=== PATIENT | male | born 1950 | race Caucasian/White ===

== ENCOUNTER 2018-09-14 15:07 | Inpatient (IN) | payer MEDICARE ==
[2018-09-14] MEDS ORDERED: ONDANSETRON 4 MG/2 ML VIAL IVP STA (15:59)
[2018-09-14] MEDS ORDERED: SODIUM CHLORIDE 0.9% 1,000 ML IV STA (15:59)
[2018-09-14 16:22] LABS: Anisocytosis Slight; Basophils # (A) 0.1 k/uL (0-0.2); Basophils % (A) 1 %; Eosinophils # (A) 0.3 k/uL (0-0.7); Eosinophils % (A) 3 %; HGB 9.5 gm/dL (13.0-17.5); Hypochromasia Moderate; Lymphocytes # (A) 2.2 k/uL (1.0-4.8); Lymphocytes % (A) 20 %; MCH 23.7 pg (25.0-35.0); MCHC 30.8 g/dL (31.0-37.0); MCV 77.1 fL (80.0-100.0); Mean Platelet Volume 8.2; Microcytosis Slight; Monocytes # (A) 0.5 k/uL (0-1.0); Monocytes % (A) 5 %; Neutrophils # (A) 8.1 k/uL (1.3-7.7); Neutrophils % (A) 72 %; Platelet Count 293 k/uL (150-450); RBC 4.02 m/uL (4.30-5.90); RDW 16.6 % (11.5-15.5); WBC 11.3 k/uL (3.8-10.6)
--- NOTE | 2018-09-14 16:22 | ED ---
GI Bleed HPI - General Chief complaint: GI Bleed Stated complaint: rectal bleeding Time Seen by Provider: 09/14/18 15:16 Source: EMS, RN notes reviewed, old records reviewed Mode of arrival: EMS Limitations: physical limitation - History of Present Illness Initial comments: This is a 60-year-old male the ER for evaluation. Patient's presented for evalu ation regarding GI bleed. Blood per rectum on Plavix. Patient does admit to some weakness, is currently having bright red blood in his diaper currently. Symptoms times one day. No feelings of syncope or near-syncope patient coming from [address] [place] [address], states that he does have history of ulcers MD complaint: blood streaked stool, gross hematochezia -: hour(s) Radiation: none Severity scale (1-10): 3 Quality: painless Consistency: constant Improves with: none Worsens with: bowel movement Context: history of GI bleed Associated Symptoms: abdominal pain, nausea, weakness - Related Data Home Medications Medication Instructions Recorded Confirmed Acetaminophen [Tylenol] 650 mg PO Q4H PRN 09/14/18 09/14/18 Acetaminophen-Codeine 300-30mg 1 tab PO Q4H PRN 09/14/18 09/14/18 [Tylenol w/codeine #3] Aspirin 325 mg PO DAILY 09/14/18 09/14/18 Cbs (Unknown) 1 dose PO DAILY 09/14/18 09/14/18 Cholecalciferol (Vitamin D3) 2,000 unit PO DAILY 09/14/18 09/14/18 [Vitamin D3] Clopidogrel Bisulfate [Plavix] 75 mg PO DAILY 09/14/18 09/14/18 Ferrous Sulfate [Feosol] 325 mg PO DAILY 09/14/18 09/14/18 Gabapentin [Neurontin] 100 mg PO TID 09/14/18 09/14/18 INSULIN LISPRO (humaLOG) [humaLOG] See Protocol SQ ACHS 09/14/18 09/14/18 Lactobacillus Acidophilus 460 mg PO BID 09/14/18 09/14/18 [Florajen] Metoprolol Tartrate [Lopressor] 75 mg PO BID 09/14/18 09/14/18 Multivitamins, Thera [Multivitamin 1 tab PO DAILY 09/14/18 09/14/18 (formulary)] amLODIPine [Norvasc] 10 mg PO DAILY 09/14/18 09/14/18 Allergies Allergy/AdvReac Type Severity Reaction Status Date / Time Ptvmwpx-Qhv-Cva Reductase AdvReac Confusion Verified 09/14/18 16:46 Inhibitor Review of Systems ROS Statement: Those systems with pertinent positive or pertinent negative responses have been documented in the HPI. ROS Other: All systems not noted in ROS Statement are negative. 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 Absent: scleral icterus, conjunctival injection, periorbital swelling ENT exam: Present: normal exam, mucous membranes moist Neck exam: Present: normal inspection. Absent: tenderness, meningismus, lymphadenopathy Respiratory exam: Present: normal lung sounds bilaterally. Absent: respiratory distress, wheezes, rales, rhonchi, stridor Cardiovascular Exam: Present: regular rate, normal rhythm, normal heart sounds. Absent: systolic murmur, diastolic murmur, rubs, gallop, clicks GI/Abdominal exam: Present: soft, normal bowel sounds. Absent: distended, tenderness, guarding, rebound, rigid Extremities exam: Present: normal inspection, full ROM, normal capillary refill. Absent: tenderness, pedal edema, joint swelling, calf tenderness Back exam: Present: normal inspection Neurological exam: Present: alert, oriented X3, CN II-XII intact Psychiatric exam: Present: normal affect, normal mood Skin exam: Present: warm, dry, intact, normal color. Absent: rash Course Vital Signs 09/14/18 15:11 Temperature 97.9 F Pulse Rate 75 Respiratory 18 Rate Blood Pressure 142/85 O2 Sat by Pulse 100 Oximetry - Reevaluation(s) Reevaluation #1: 09/14/18 16:22 Medical record is reviewed Medical Decision Making - Medical Decision Making 60 male the ER for evaluation. Patient is to be admitted for GI bleed. Positive bleeding As directed on Plavix. Patient's vital signs normal, patient be admitted for monitoring of hemoglobin - Lab Data Result diagrams: 09/14/18 15:30 09/14/18 15:30 Lab Results 09/14/18 09/14/18 09/14/18 Range/Units 15:30 15:30 15:30 WBC 11.3 H (3.8-10.6) k/uL RBC 4.02 L (4.30-5.90) m/uL Hgb 9.5 L (13.0-17.5) gm/dL Hct 31.0 L (39.0-53.0) % MCV 77.1 L (80.0-100.0) fL MCH 23.7 L (25.0-35.0) pg MCHC 30.8 L (31.0-37.0) g/dL RDW 16.6 H (11.5-15.5) % Plt Count 293 (150-450) k/uL Neutrophils % 72 % Lymphocytes % 20 % Monocytes % 5 % Eosinophils % 3 % Basophils % 1 % Neutrophils # 8.1 H (1.3-7.7) k/uL Lymphocytes # 2.2 (1.0-4.8) k/uL Monocytes # 0.5 (0-1.0) k/uL Eosinophils # 0.3 (0-0.7) k/uL Basophils # 0.1 (0-0.2) k/uL Hypochromasia Moderate Anisocytosis Slight Microcytosis Slight PT 11.0 (9.0-12.0) sec INR 1.0 (<1.2) APTT 26.3 (22.0-30.0) sec Sodium 139 (137-145) mmol/L Potassium 4.3 (3.5-5.1) mmol/L Chloride 102 (98-107) mmol/L Carbon Dioxide 25 (22-30) mmol/L Anion Gap 12 mmol/L BUN 18 (9-20) mg/dL Creatinine 0.94 (0.66-1.25) mg/dL Est GFR (CKD-EPI)AfAm >90 (>60 ml/min/1.73 sqM) Est GFR (CKD-EPI)NonAf 83 (>60 ml/min/1.73 sqM) Glucose 138 H (74-99) mg/dL Calcium 10.1 (8.4-10.2) mg/dL Magnesium 1.4 L (1.6-2.3) mg/dL Total Bilirubin 0.4 (0.2-1.3) mg/dL AST 18 (17-59) U/L ALT 38 (21-72) U/L Alkaline Phosphatase 99 (38-126) U/L Troponin I (0.000-0.034) ng/mL Total Protein 6.7 (6.3-8.2) g/dL Albumin 3.7 (3.5-5.0) g/dL Lipase 265 (23-300) U/L Blood Type Blood Type Confirm Blood Type Recheck Antibody Screen Spec Expiration Date 09/14/18 09/14/18 09/14/18 Range/Units 15:30 15:30 16:45 WBC (3.8-10.6) k/uL RBC (4.30-5.90) m/uL Hgb (13.0-17.5) gm/dL Hct (39.0-53.0) % MCV (80.0-100.0) fL MCH (25.0-35.0) pg MCHC (31.0-37.0) g/dL RDW (11.5-15.5) % Plt Count (150-450) k/uL Neutrophils % % Lymphocytes % % Monocytes % % Eosinophils % % Basophils % % Neutrophils # (1.3-7.7) k/uL Lymphocytes # (1.0-4.8) k/uL Monocytes # (0-1.0) k/uL Eosinophils # (0-0.7) k/uL Basophils # (0-0.2) k/uL Hypochromasia Anisocytosis Microcytosis PT (9.0-12.0) sec INR (<1.2) APTT (22.0-30.0) sec Sodium (137-145) mmol/L Potassium (3.5-5.1) mmol/L Chloride (98-107) mmol/L Carbon Dioxide (22-30) mmol/L Anion Gap mmol/L BUN (9-20) mg/dL Creatinine (0.66-1.25) mg/dL Est GFR (CKD-EPI)AfAm (>60 ml/min/1.73 sqM) Est GFR (CKD-EPI)NonAf (>60 ml/min/1.73 sqM) Glucose (74-99) mg/dL Calcium (8.4-10.2) mg/dL Magnesium (1.6-2.3) mg/dL Total Bilirubin (0.2-1.3) mg/dL AST (17-59) U/L ALT (21-72) U/L Alkaline Phosphatase (38-126) U/L Troponin I <0.012 (0.000-0.034) ng/mL Total Protein (6.3-8.2) g/dL Albumin (3.5-5.0) g/dL Lipase (23-300) U/L Blood Type A Positive Blood Type Confirm A Positive Blood Type Recheck CABO Indicated Antibody Screen NEGATIVE Spec Expiration Date 09/17/2018 - 2330 Disposition Clinical Impression: Gastrointestinal hemorrhage, Anemia Disposition: ADMITTED IP TO THIS [facility] Condition: Fair Instructions (If sedation given, give patient instructions): Gastrointestinal Bleeding (ED) Is patient prescribed a controlled substance at d/c from ED?: No Referrals: Bill Sainz DO [Primary Care Provider] - 1-2 days
[2018-09-14 16:27] LABS: ALT 38 U/L (21-72); AST 18 U/L (17-59); Albumin 3.7 g/dL (3.5-5.0); Alkaline Phosphatase 99 U/L (38-126); Anion Gap 12 mmol/L; Blood Urea Nitrogen 18 mg/dL (9-20); Calcium 10.1 mg/dL (8.4-10.2); Carbon Dioxide 25 mmol/L (22-30); Chloride 102 mmol/L (98-107); Glucose 138 mg/dL (74-99); Lipase 265 U/L (23-300); Magnesium 1.4 mg/dL (1.6-2.3); Potassium 4.3 mmol/L (3.5-5.1); Sodium 139 mmol/L (137-145); Total Bilirubin 0.4 mg/dL (0.2-1.3); Total Protein 6.7 g/dL (6.3-8.2)
[2018-09-14 16:31] LABS: Partial Thromboplastin Time 26.3 sec (22.0-30.0)
[2018-09-14 21:28] LABS: Glucose,Whole Blood 135 mg/dL (75-99)
[2018-09-14 21:42] LABS: Anisocytosis Slight; HCT 27.9 % (39.0-53.0); HGB 8.5 gm/dL (13.0-17.5); Hypochromasia Moderate; MCH 23.5 pg (25.0-35.0); MCHC 30.3 g/dL (31.0-37.0); MCV 77.6 fL (80.0-100.0); Mean Platelet Volume 8.3; Microcytosis Slight; Platelet Count 263 k/uL (150-450); RDW 16.8 % (11.5-15.5); WBC 9.9 k/uL (3.8-10.6)
[2018-09-14] MEDS ORDERED: ACETAMINOPHEN TAB 325 MG TAB PO PRN (22:15)
[2018-09-14 22:30] VITALS: BMI 25.2
[2018-09-14] MEDS ORDERED: INSULIN ASPART (NovoLOG) 100 UNIT/ML VIAL SQ SCH (22:30)
[2018-09-14] MEDS: METOPROLOL TARTRATE 25 MG TAB PO SCH (23:04)
[2018-09-14] MEDS: GABAPENTIN 100 MG CAP PO SCH (23:04)
[2018-09-15 00:09] LABS: Glucose,Whole Blood 192 mg/dL (75-99)
[2018-09-15] MEDS: INSULIN ASPART (NovoLOG) 100 UNIT/ML VIAL SQ SCH ×4 (00:36→17:47)
[2018-09-15 06:05] LABS: Anion Gap 7 mmol/L; Blood Urea Nitrogen 16 mg/dL (9-20); Calcium 9.1 mg/dL (8.4-10.2); Carbon Dioxide 26 mmol/L (22-30); Chloride 106 mmol/L (98-107); Glucose 129 mg/dL (74-99); Magnesium 1.4 mg/dL (1.6-2.3); Potassium 4.6 mmol/L (3.5-5.1); Sodium 139 mmol/L (137-145)
[2018-09-15 06:09] LABS: Glucose,Whole Blood 140 mg/dL (75-99)
[2018-09-15] MEDS ORDERED: Magnesium Replacement Protocol 1 EACH MISC MISCELLANE PRN (06:15)
[2018-09-15] MEDS: MAGNESIUM SULFATE-D5W PMX 1 GM in DEXTROSE/WATER 1 100ML.BAG IVPB SCH ×3 (07:57→10:53)
[2018-09-15 09:37] LABS: Anisocytosis Slight; Basophils % (A) 1 %; Eosinophils # (A) 0.3 k/uL (0-0.7); Eosinophils % (A) 5 %; HCT 26.2 % (39.0-53.0); HGB 7.9 gm/dL (13.0-17.5); Hypochromasia Marked; Lymphocytes # (A) 1.8 k/uL (1.0-4.8); Lymphocytes % (A) 31 %; MCH 23.9 pg (25.0-35.0); MCHC 30.3 g/dL (31.0-37.0); MCV 78.8 fL (80.0-100.0); Mean Platelet Volume 8.6; Monocytes # (A) 0.3 k/uL (0-1.0); Monocytes % (A) 5 %; Neutrophils # (A) 3.4 k/uL (1.3-7.7); Neutrophils % (A) 57 %; Platelet Count 233 k/uL (150-450); RBC 3.33 m/uL (4.30-5.90); RDW 16.6 % (11.5-15.5); WBC 5.9 k/uL (3.8-10.6)
[2018-09-15] MEDS: GABAPENTIN 100 MG CAP PO SCH ×3 (09:39→21:01)
[2018-09-15] MEDS: METOPROLOL TARTRATE 25 MG TAB PO SCH (10:06)
[2018-09-15] MEDS: PANTOPRAZOLE 40 MG/10 ML VIAL IVP SCH ×2 (10:53→21:03)
[2018-09-15] MEDS: METOPROLOL TARTRATE 50 MG TAB PO SCH ×2 (10:58→21:01)
[2018-09-15 12:00] LABS: Glucose,Whole Blood 165 mg/dL (75-99)
--- NOTE | 2018-09-15 12:59 | P.CONS ---
History of Present Illness - Reason for Consult Consult date: 09/15/18 GI bleed Requesting physician: Geni Olea - Chief Complaint Hematochezia - History of Present Illness 68-year-old male admitted with painless hematochezia x 1 day. Past medical history recent RBKA 6-7 weeks ago at [facility], heart failure, diabetes, hypertension maintained on DAPL. Admission HGB 9.5 presently 7.9. MCV 77. Platelet 293. INR 1.0. BUN 18. Creatinine 0.9. Passed gross bloody BM this morning. VSS. Denies abdominal pain. No history of EGD or colonoscopy. No history of GIB. No abdominal studies to review. Review of Systems Constitutional: Denies fever, chills, sweats, weight gain, or loss. HEENT: Negative for migraines, blurred vision or loss, earaches, drainage, tinnitus, oral mucosal lesions, dysphagia, or odynophagia. Cardiac: Negative for chest pain, arrhythmias, or palpitation. Respiratory: Negative for shortness of breath, hemoptysis, cough, or sputum production. Gastrointestinal: See HPI for pertinent findings. Genitourinary: Negative for hematuria, urgency, frequency, polyuria, dysuria, or penile discharge. Musculoskeletal: Negative for muscle aches, swelling, arthritis, and arthralgias. Neurologic: Negative for stroke or TIA. Endocrine: Negative for thyroid problems. Skin: Negative for rash or itching. 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, carotid replaced Date of Last Stent Placement:: 45 years ago Past Psychological History: No Psychological Hx Reported Smoking Status: Former smoker Past Alcohol Use History: None Reported Past Drug Use History: Marijuana Medications and Allergies Home Medications Medication Instructions Recorded Confirmed Type Acetaminophen [Tylenol] 650 mg PO Q4H PRN 09/14/18 09/14/18 History Acetaminophen-Codeine 300-30mg 1 tab PO Q4H PRN 09/14/18 09/14/18 History [Tylenol w/codeine #3] Aspirin 325 mg PO DAILY 09/14/18 09/14/18 History Cbs (Unknown) 1 dose PO DAILY 09/14/18 09/14/18 History Cholecalciferol (Vitamin D3) 2,000 unit PO DAILY 09/14/18 09/14/18 History [Vitamin D3] Clopidogrel Bisulfate [Plavix] 75 mg PO DAILY 09/14/18 09/14/18 History Ferrous Sulfate [Feosol] 325 mg PO DAILY 09/14/18 09/14/18 History Gabapentin [Neurontin] 100 mg PO TID 09/14/18 09/14/18 History INSULIN LISPRO (humaLOG) [humaLOG] See Protocol SQ ACHS 09/14/18 09/14/18 History Lactobacillus Acidophilus 460 mg PO BID 09/14/18 09/14/18 History [Florajen] Metoprolol Tartrate [Lopressor] 75 mg PO BID 09/14/18 09/14/18 History Multivitamins, Thera [Multivitamin 1 tab PO DAILY 09/14/18 09/14/18 History (formulary)] amLODIPine [Norvasc] 10 mg PO DAILY 09/14/18 09/14/18 History Allergies Allergy/AdvReac Type Severity Reaction Status Date / Time Aajqxgj-Haj-Ggs Reductase AdvReac Confusion Verified 09/14/18 16:46 Inhibitor Physical Exam Vitals: Vital Signs Temp Pulse Pulse Resp BP BP Pulse Ox 09/15/18 10:00 59 L 16 133/61 99 09/15/18 09:00 57 L 12 144/62 98 09/15/18 08:00 97.7 F 60 12 146/64 99 09/15/18 07:30 54 L 17 99 09/15/18 07:00 58 L 9 L 115/96 100 09/15/18 06:30 65 20 115/96 98 09/15/18 06:00 61 17 125/49 98 09/15/18 05:30 55 L 15 125/49 99 09/15/18 05:00 56 L 15 125/50 99 09/15/18 04:30 47 L 15 125/50 98 09/15/18 04:00 50 L 16 141/66 100 09/15/18 03:30 97.7 F 50 L 18 141/66 100 09/15/18 03:00 55 L 13 134/58 100 09/15/18 02:30 53 L 15 134/58 98 09/15/18 02:00 55 L 12 137/69 99 09/15/18 01:30 51 L 23 137/69 98 09/15/18 01:00 56 L 15 123/66 98 09/15/18 00:30 58 L 15 123/66 98 09/15/18 00:00 98.4 F 66 18 130/80 98 09/14/18 23:30 15 130/80 98 09/14/18 23:00 72 12 142/68 96 09/14/18 22:36 78 11 L 142/68 98 09/14/18 22:30 82 12 142/68 99 09/14/18 22:20 76 5 L 151/76 98 09/14/18 22:10 77 13 151/76 100 09/14/18 22:00 77 10 L 151/76 98 09/14/18 21:50 80 13 151/76 98 09/14/18 21:40 81 10 L 100 09/14/18 21:39 81 11 L 98 09/14/18 20:39 98.1 F 85 16 132/62 100 09/14/18 19:40 98.5 F 79 12 142/68 97 09/14/18 18:38 79 18 154/79 100 09/14/18 17:19 82 18 142/81 100 09/14/18 15:11 97.9 F 75 18 142/85 100 Intake and Output 09/14/18 09/15/18 09/15/18 22:59 06:59 14:59 Intake Total 200 800 400 Output Total 350 400 Balance 200 450 0 Intake: IV 200 800 200 Sodium Chloride 0.9% 1, 200 800 200 000 ml @ 100 mls/hr IV . Q10H STA Rx#:[id number] Intake, IV Titration 200 Amount Magnesium Sulfate-D5w Pmx 200 1 gm In Dextrose/Water 1 100ml.bag @ 100 mls/hr IVPB Q1H LORETTA Rx#: [id number] Output: Urine 350 400 Other: Weight 87.543 kg 89.3 kg General appearance: The patient is alert, oriented, in no acute distress. HET: Head is normocephalic and atraumatic. Pupils are equal and reactive. Oropharynx is clear without lesions. Neck: Supple without lymphadenopathy. Trachea midline. Heart: S1 S2. Regular rate and rhythm. Lungs: No crackles or wheezes are heard. Abdomen: Soft, nontender, nondistended with bowel sounds. No peritoneal signs. No palpable organomegaly or masses. Extremities: RLE immobilizer. Normal skin color and turgor. No cyanosis, rash, ulceration, clubbing, or edema. Radial and pedal pulses are 2/4 bilaterally. Neurological: No focal deficits. Strength and sensation are grossly intact. Results CBC & Chem 7: 09/15/18 05:58 09/15/18 05:26 Labs: Abnormal Lab Results - Last 24 Hours (Table) 09/14/18 09/14/18 09/14/18 Range/Units 15:30 15:30 21:16 WBC 11.3 H (3.8-10.6) k/uL RBC 4.02 L (4.30-5.90) m/uL Hgb 9.5 L (13.0-17.5) gm/dL Hct 31.0 L (39.0-53.0) % MCV 77.1 L (80.0-100.0) fL MCH 23.7 L (25.0-35.0) pg MCHC 30.8 L (31.0-37.0) g/dL RDW 16.6 H (11.5-15.5) % Neutrophils # 8.1 H (1.3-7.7) k/uL Glucose 138 H (74-99) mg/dL POC Glucose (mg/dL) 135 H (75-99) mg/dL Magnesium 1.4 L (1.6-2.3) mg/dL 09/14/18 09/14/18 09/15/18 Range/Units 21:31 23:57 05:26 WBC (3.8-10.6) k/uL RBC 3.60 L (4.30-5.90) m/uL Hgb 8.5 L (13.0-17.5) gm/dL Hct 27.9 L (39.0-53.0) % MCV 77.6 L (80.0-100.0) fL MCH 23.5 L (25.0-35.0) pg MCHC 30.3 L (31.0-37.0) g/dL RDW 16.8 H (11.5-15.5) % Neutrophils # (1.3-7.7) k/uL Glucose 129 H (74-99) mg/dL POC Glucose (mg/dL) 192 H (75-99) mg/dL Magnesium 1.4 L (1.6-2.3) mg/dL 09/15/18 09/15/18 Range/Units 05:58 05:58 WBC (3.8-10.6) k/uL RBC 3.33 L (4.30-5.90) m/uL Hgb 7.9 L (13.0-17.5) gm/dL Hct 26.2 L (39.0-53.0) % MCV 78.8 L (80.0-100.0) fL MCH 23.9 L (25.0-35.0) pg MCHC 30.3 L (31.0-37.0) g/dL RDW 16.6 H (11.5-15.5) % Neutrophils # (1.3-7.7) k/uL Glucose (74-99) mg/dL POC Glucose (mg/dL) 140 H (75-99) mg/dL Magnesium (1.6-2.3) mg/dL Assessment and Plan (1) Hematochezia Narrative/Plan: 68 y/o male admitted with painless rectal bleeding possible acute diverticular bleeding possible bleeding AVM inflammatory ischemic colitis. Upper GI pathology cannot be excluded. Current Visit: Yes Status: Acute Code(s): K92.1 - MELENA SNOMED Code(s): 201289921 (2) Acute blood loss anemia Current Visit: Yes Status: Acute Code(s): D62 - ACUTE POSTHEMORRHAGIC ANEMIA SNOMED Code(s): 064253184 (3) Gastrointestinal hemorrhage Current Visit: Yes Status: Acute Code(s): K92.2 - GASTROINTESTINAL HEMORRHAGE, UNSPECIFIED SNOMED Code(s): 32104968 Plan: 1. NPO except meds. EGD evaluation this afternoon if negative we'll proceed with colonoscopy tomorrow. 2. CBC Q6HR. 3. PPI BID. 4. Tagged RBC if bleeding worsens. The standards engineer has discussed the risks, benefits and alternative therapies for the above-mentioned procedure and for both sedation/analgesia as well as necessary blood product administration, if indicated, as they pertain to this patient. The patient has indicated understanding and acceptance of the risks and procedures discussed. Thank you for this kind referral and the opportunity to participate in the care of your patient. This consultation was discussed with Dr. Jett. The impression and plan of care have been directed as dictated.
--- NOTE | 2018-09-15 13:02 | P.CNPUL ---
History of Present Illness Consult date: 09/15/18 Requesting physician: Geni Olea Reason for consult: other (GI bleeding, admitted to the ICU) Chief complaint: GI bleeding blood per rectum History of present illness: this is a 60-year-old white male with history ofperipheral vessel occlusive disease, and recent below-knee amputation of the right lower extremity. Patient is also known to have history of diabetes, hypertension, medically neuropathy, patient presented to the ER mostly with chief complaint of bright red blood per rectum for the last 1 day. He was feeling generally weak, denies any abdominal pain, no nausea, no vomiting, no hematemesis. Patient had mostly bright red blood per rectum symptoms. Patient became quite concerned, he presented to the ER, and his labs showed a hemoglobin of 8.5, and low indices suggestive of iron deficiency anemia and blood loss. Patient was admitted, did not require any blood transfusion yet, his repeat hemoglobin this morning is 7.9. Patient denies any chest pain, no cough no wheezing no shortness of breath, no nausea no vomiting, no abdominal pain. No dysuria frequency or urgency urgency denies any hematuria. Review of Systems Constitutional: deniesfever chills no weight loss, denies poor appetite. Eyes: denies blurred vision or diplopia. Ears, nose, mouth and throat: Denies dysphagia, Denies headache, Denies mouth pain, Denies nasal congestion, Denies nasal discharge, Denies sore throat Cardiovascular: denies any chest pain, palpitations, no diaphoresis. Respiratory:adenies any cough wheezing or shortness of breath. Denies any chest pain. Gastrointestinal: mostly bright red blood per rectal, as noted in HPI. Genitourinary: denies dysuria frequency or urgency. Musculoskeletal: minimal weakness. Integumentary: no pruritus, no erythema.recent right below-knee amputation. 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, carotid replaced Date of Last Stent Placement:: 45 years ago Past Psychological History: No Psychological Hx Reported Smoking Status: Former smoker Past Alcohol Use History: None Reported Past Drug Use History: Marijuana Medications and Allergies Home Medications Medication Instructions Recorded Confirmed Type Acetaminophen [Tylenol] 650 mg PO Q4H PRN 09/14/18 09/14/18 History Acetaminophen-Codeine 300-30mg 1 tab PO Q4H PRN 09/14/18 09/14/18 History [Tylenol w/codeine #3] Aspirin 325 mg PO DAILY 09/14/18 09/14/18 History Cbs (Unknown) 1 dose PO DAILY 09/14/18 09/14/18 History Cholecalciferol (Vitamin D3) 2,000 unit PO DAILY 09/14/18 09/14/18 History [Vitamin D3] Clopidogrel Bisulfate [Plavix] 75 mg PO DAILY 09/14/18 09/14/18 History Ferrous Sulfate [Feosol] 325 mg PO DAILY 09/14/18 09/14/18 History Gabapentin [Neurontin] 100 mg PO TID 09/14/18 09/14/18 History INSULIN LISPRO (humaLOG) [humaLOG] See Protocol SQ ACHS 09/14/18 09/14/18 History Lactobacillus Acidophilus 460 mg PO BID 09/14/18 09/14/18 History [Florajen] Metoprolol Tartrate [Lopressor] 75 mg PO BID 09/14/18 09/14/18 History Multivitamins, Thera [Multivitamin 1 tab PO DAILY 09/14/18 09/14/18 History (formulary)] amLODIPine [Norvasc] 10 mg PO DAILY 09/14/18 09/14/18 History Allergies Allergy/AdvReac Type Severity Reaction Status Date / Time Jbmaupe-Htl-Vae Reductase AdvReac Confusion Verified 09/14/18 16:46 Inhibitor Physical Exam Vitals: Vital Signs Temp Pulse Pulse Resp BP BP Pulse Ox 09/15/18 12:00 54 L 13 144/73 97 09/15/18 11:00 77 14 131/72 98 09/15/18 10:00 59 L 16 133/61 99 09/15/18 09:00 57 L 12 144/62 98 09/15/18 08:00 97.7 F 60 12 146/64 99 09/15/18 07:30 54 L 17 99 09/15/18 07:00 58 L 9 L 115/96 100 09/15/18 06:30 65 20 115/96 98 09/15/18 06:00 61 17 125/49 98 09/15/18 05:30 55 L 15 125/49 99 09/15/18 05:00 56 L 15 125/50 99 09/15/18 04:30 47 L 15 125/50 98 09/15/18 04:00 50 L 16 141/66 100 09/15/18 03:30 97.7 F 50 L 18 141/66 100 09/15/18 03:00 55 L 13 134/58 100 09/15/18 02:30 53 L 15 134/58 98 09/15/18 02:00 55 L 12 137/69 99 09/15/18 01:30 51 L 23 137/69 98 09/15/18 01:00 56 L 15 123/66 98 09/15/18 00:30 58 L 15 123/66 98 09/15/18 00:00 98.4 F 66 18 130/80 98 09/14/18 23:30 15 130/80 98 09/14/18 23:00 72 12 142/68 96 09/14/18 22:36 78 11 L 142/68 98 09/14/18 22:30 82 12 142/68 99 09/14/18 22:20 76 5 L 151/76 98 09/14/18 22:10 77 13 151/76 100 09/14/18 22:00 77 10 L 151/76 98 09/14/18 21:50 80 13 151/76 98 09/14/18 21:40 81 10 L 100 09/14/18 21:39 81 11 L 98 09/14/18 20:39 98.1 F 85 16 132/62 100 09/14/18 19:40 98.5 F 79 12 142/68 97 09/14/18 18:38 79 18 154/79 100 09/14/18 17:19 82 18 142/81 100 09/14/18 15:11 97.9 F 75 18 142/85 100 Intake and Output 09/14/18 09/15/18 09/15/18 22:59 06:59 14:59 Intake Total 200 800 500 Output Total 350 400 Balance 200 450 100 Intake: IV 200 800 200 Sodium Chloride 0.9% 1, 200 800 200 000 ml @ 100 mls/hr IV . Q10H STA Rx#:[id number] Intake, IV Titration 300 Amount Magnesium Sulfate-D5w Pmx 300 1 gm In Dextrose/Water 1 100ml.bag @ 100 mls/hr IVPB Q1H [facility] Rx#: [id number] Output: Urine 350 400 Other: # Bowel Movements 1 Weight 87.543 kg 89.3 kg 89.3 kg Physical Exam: Revealed 68 year-old white male very pleasant in no distress. Head: Atraumatic, normocephalic. HEENT:[Neck is supple.] [No neck masses.] [No thyromegaly.] [No JVD.]PERRLA, EOMI, no icterus. Chest: [Clear throughout, no crackles, no rhonchi, no wheezes.] Cardiac Exam: [Normal S1 and S2, no S3 gallop, no murmur.] Abdomen: [Soft, nontender, no megaly, no rebound, no guarding, normal bowel sounds.] Extremities: [No clubbing, no edema, no cyanosis.]right below-knee amputation is noted. Neurological Exam: [No focal neurologic deficit.]alert oriented 3. Psychiatric: Normal mood, affect and mental status examination. Skin: No rashes. Pharynx: No lymphadenopathy palpable Results - Laboratory Findings CBC and BMP: 09/15/18 05:58 09/15/18 05:26 PT/INR, D-dimer PT 11.0 sec (9.0-12.0) 09/14/18 15:30 INR 1.0 (<1.2) 09/14/18 15:30 Abnormal lab findings: Abnormal Labs 09/14/18 09/14/18 09/14/18 15:30 15:30 21:16 WBC 11.3 H RBC 4.02 L Hgb 9.5 L Hct 31.0 L MCV 77.1 L MCH 23.7 L MCHC 30.8 L RDW 16.6 H Neutrophils # 8.1 H Glucose 138 H POC Glucose (mg/dL) 135 H Magnesium 1.4 L 09/14/18 09/14/18 09/15/18 21:31 23:57 05:26 WBC RBC 3.60 L Hgb 8.5 L Hct 27.9 L MCV 77.6 L MCH 23.5 L MCHC 30.3 L RDW 16.8 H Neutrophils # Glucose 129 H POC Glucose (mg/dL) 192 H Magnesium 1.4 L 09/15/18 09/15/18 09/15/18 05:58 05:58 11:48 WBC RBC 3.33 L Hgb 7.9 L Hct 26.2 L MCV 78.8 L MCH 23.9 L MCHC 30.3 L RDW 16.6 H Neutrophils # Glucose POC Glucose (mg/dL) 140 H 165 H Magnesium Assessment and Plan Assessment: impression: 1 acute GI bleeding, most likely lower GI in nature, differential diagnoses incl udes diverticular disease, or internal hemorrhoids.this is most likely exacerbated by the fact that the patient has been on Plavix and aspirin. 2acute blood loss/anemia. 3 multiple comorbidities including diabetes, hypertension, peripheral vessel occlusive disease and recent right below-knee amputation. Recommendation: Continue present treatment plan and supportive care measures,patient will be seen by gastroenterology on consultation, he is now nothing by mouth, scheduled for colonoscopy tomorrow. Continue serial CBC every 6 hours, continue PPI, will follow. Time with Patient: Greater than 30
[2018-09-15 13:14] LABS: Anisocytosis Slight; Basophils % (A) 1 %; Eosinophils # (A) 0.2 k/uL (0-0.7); Eosinophils % (A) 5 %; HCT 25.2 % (39.0-53.0); HGB 7.7 gm/dL (13.0-17.5); Hypochromasia Marked; Lymphocytes # (A) 1.5 k/uL (1.0-4.8); Lymphocytes % (A) 35 %; MCH 24.4 pg (25.0-35.0); MCHC 30.6 g/dL (31.0-37.0); MCV 79.9 fL (80.0-100.0); Mean Platelet Volume 8.5; Monocytes # (A) 0.2 k/uL (0-1.0); Monocytes % (A) 4 %; Neutrophils # (A) 2.2 k/uL (1.3-7.7); Neutrophils % (A) 53 %; Platelet Count 234 k/uL (150-450); RBC 3.15 m/uL (4.30-5.90); RDW 16.1 % (11.5-15.5); WBC 4.2 k/uL (3.8-10.6)
[2018-09-15] MEDS ORDERED: IV FLUID CONTINUATION 1,000 ML IV ONE (15:26)
[2018-09-15] MEDS ORDERED: PROPOFOL 10 MG/ML 20 ML VIAL IV ONE (15:26)
[2018-09-15] MEDS ORDERED: LIDOCAINE 1% INJ 10MG/ML (20 ML MDV) ONE (15:26)
[2018-09-15] MEDS ORDERED: LACTATED RINGERS 1,000 ML IV ONE (15:26)
--- NOTE | 2018-09-15 15:49 | P.PCN ---
Date of Procedure: 09/15/18 Description of Procedure: BRIEF HISTORY: 68-year-old male admitted with painless hematochezia x 1 day. Past medical history recent RBKA 6-7 weeks ago at [place], heart failure, diabetes, hypertension maintained on DAPL. Admission HGB 9.5 presently 7.9. MCV 77. Creatinine 0.9. Passed gross bloody BM this morning. VSS. Denies abdominal pain. No history of EGD or colonoscopy. No history of GIB. PROCEDURE PERFORMED: Esophagogastroduodenoscopy . PREOPERATIVE DIAGNOSIS: Anemia of acute blood loss, hematochezia. ESTIMATED BLOOD LOSS: Minimal. IV sedation per anesthesia. PROCEDURE: After informed consent was obtained, the patient was brought into the endoscopy unit. IV sedation was administered by Anesthesia under continuous monitoring. Initially the Olympus GIF-190 video endoscope was inserted into the mouth. Esophagus intubated without any difficulty. It was gradually advanced into the stomach and duodenum and carefully examined. The bulb and the second part of the duodenum appeared normal, with biopsies taken. The scope at this time was withdrawn to the stomach, adequately insufflated with air, and upon careful examination, mucosa of the antrum, body, cardia and the fundus appeared grossly normal except for some mild scattered erythema in the antrum and body with knapp perficial erosions suggestive of mild to moderate gastritis with biopsies taken of the antrum and body. The scope was then withdrawn into the esophagus. The GE junction was located at 40 cm from the incisors. The esophagus appeared normal. There were no erosions or ulcerations seen and the patient tolerated the procedure well. IMPRESSION: 1. Mild to moderate gastritis, biopsies antrum and body. 2. Duodenal biopsies. RECOMMENDATIONS: The findings of this examination were discussed with the patient and his . Okay for clear liquid diet. Continue to monitor hemoglobin and hematocrit and transfuse as needed. Continue to monitor for signs or symptoms of GI bleeding. Plan for colonoscopy tomorrow, with possible video capsule endoscopy pending findings. Patient will be given bowel prep tonight.
[2018-09-15] MEDS ORDERED: PEG 3350-NA SULF,BICARB,CL/KCL 4,000 ML BOTTLE PO ONE (15:50)
[2018-09-15 17:58] LABS: Glucose,Whole Blood 133 mg/dL (75-99)
[2018-09-15] MEDS ORDERED: BISACODYL 5 MG TABLET.DR PO ONE (18:00)
[2018-09-15 18:37] LABS: Anisocytosis Slight; Basophils % (A) 1 %; Eosinophils # (A) 0.2 k/uL (0-0.7); Eosinophils % (A) 4 %; HGB 8.1 gm/dL (13.0-17.5); Hypochromasia Marked; Lymphocytes # (A) 1.6 k/uL (1.0-4.8); Lymphocytes % (A) 36 %; MCH 23.4 pg (25.0-35.0); MCHC 29.9 g/dL (31.0-37.0); MCV 78.3 fL (80.0-100.0); Mean Platelet Volume 8.2; Microcytosis Slight; Monocytes # (A) 0.2 k/uL (0-1.0); Monocytes % (A) 5 %; Neutrophils # (A) 2.4 k/uL (1.3-7.7); Neutrophils % (A) 52 %; Platelet Count 230 k/uL (150-450); RBC 3.44 m/uL (4.30-5.90); RDW 16.6 % (11.5-15.5); WBC 4.5 k/uL (3.8-10.6)
--- NOTE | 2018-09-15 18:52 | P.HPIM ---
History of Present Illness This is a pleasant 68 years old male with past medical history of TIA/CVA, heart failure, diabetes mellitus, hypertension, hyperlipidemia, coronary artery disease status post cardiac Stenting. Status Post Right below Knee Amputation. Patient at [facility] Post Hospitalization Was Started Having Diarrhea but Rather Than Stool He Was Passing Fresh Blood with Clots. However Patient Denies Abdominal Pain No Nausea or Vomiting. Patient Came to Emergency Room, His Vitals Included Blood Pressure Was Stable However He Has His Hemoglobin Dropping 9.5, to 7.9, 7.7 and Currently 8.1. Patient Has Been Evaluated by Gastroenterology Team. Patient Underwent EGD Today Showing Mild Gastritis. However Patient Is Planned for Colonoscopy Tomorrow and Possible Video Capsule Endoscopy Benefits Indicated. Review of Systems CONSTITUTIONAL: No fever, no malaise, no fatigue. HEENT: No recent visual problems or hearing problems. Denied any sore throat. CARDIOVASCULAR: No orthopnea, PND, no palpitations, no syncope. PULMONARY: No shortness of breath, no cough, no hemoptysis. GASTROINTESTINAL: No diarrhea, no nausea, no vomiting, no abdominal pain. Normoactive bowel sounds. NEUROLOGICAL: No headaches, no weakness, no numbness. HEMATOLOGICAL: Denies any bleeding or petechiae. GENITOURINARY: Denies any burning micturition, frequency, or urgency. MUSCULOSKELETAL/RHEUMATOLOGICAL: Denies any joint pain, swelling, or any muscle pain. ENDOCRINE: Denies any polyuria or polydipsia. Past Medical History Past Medical History: Heart Failure, CVA/TIA, Diabetes Mellitus, Hyperlipidemia, Hypertension, Vascular Disorder Additional Past Medical History / Comment(s): left arm deficit History of Any Multi-Drug Resistant Organisms: None Reported Past Surgical History: Heart Catheterization With Stent Additional Past Surgical History / Comment(s): right leg below the knee amputation, main artery replaced in heart, carotid replaced Date of Last Stent Placement:: 45 years ago Past Psychological History: No Psychological Hx Reported Smoking Status: Former smoker Past Alcohol Use History: None Reported Past Drug Use History: Marijuana Medications and Allergies Home Medications Medication Instructions Recorded Confirmed Type Acetaminophen [Tylenol] 650 mg PO Q4H PRN 09/14/18 09/14/18 History Acetaminophen-Codeine 300-30mg 1 tab PO Q4H PRN 09/14/18 09/14/18 History [Tylenol w/codeine #3] Aspirin 325 mg PO DAILY 09/14/18 09/14/18 History Cbs (Unknown) 1 dose PO DAILY 09/14/18 09/14/18 History Cholecalciferol (Vitamin D3) 2,000 unit PO DAILY 09/14/18 09/14/18 History [Vitamin D3] Clopidogrel Bisulfate [Plavix] 75 mg PO DAILY 09/14/18 09/14/18 History Ferrous Sulfate [Feosol] 325 mg PO DAILY 09/14/18 09/14/18 History Gabapentin [Neurontin] 100 mg PO TID 09/14/18 09/14/18 History INSULIN LISPRO (humaLOG) [humaLOG] See Protocol SQ ACHS 09/14/18 09/14/18 History Lactobacillus Acidophilus 460 mg PO BID 09/14/18 09/14/18 History [Florajen] Metoprolol Tartrate [Lopressor] 75 mg PO BID 09/14/18 09/14/18 History Multivitamins, Thera [Multivitamin 1 tab PO DAILY 09/14/18 09/14/18 History (formulary)] amLODIPine [Norvasc] 10 mg PO DAILY 09/14/18 09/14/18 History Allergies Allergy/AdvReac Type Severity Reaction Status Date / Time [id number] Reductase AdvReac Confusion Verified 09/14/18 16:46 Inhibitor Physical Exam Vitals: Vital Signs Temp Pulse Pulse Resp BP BP Pulse Ox 09/15/18 17:00 52 L 15 141/64 96 09/15/18 16:40 53 L 11 L 150/62 99 09/15/18 16:20 50 L 20 147/86 98 09/15/18 16:00 54 L 18 154/71 98 09/15/18 15:00 53 L 15 143/59 100 09/15/18 14:00 51 L 19 136/62 98 09/15/18 13:00 47 L 11 L 131/59 100 09/15/18 12:00 54 L 15 144/73 97 09/15/18 11:00 77 14 131/72 98 09/15/18 10:00 59 L 16 133/61 99 09/15/18 09:00 57 L 12 144/62 98 09/15/18 08:00 97.7 F 60 19 146/64 99 09/15/18 07:30 54 L 17 99 09/15/18 07:00 58 L 9 L 115/96 100 09/15/18 06:30 65 20 115/96 98 09/15/18 06:00 61 17 125/49 98 09/15/18 05:30 55 L 15 125/49 99 09/15/18 05:00 56 L 15 125/50 99 09/15/18 04:30 47 L 15 125/50 98 09/15/18 04:00 50 L 16 141/66 100 09/15/18 03:30 97.7 F 50 L 18 141/66 100 09/15/18 03:00 55 L 13 134/58 100 09/15/18 02:30 53 L 15 134/58 98 09/15/18 02:00 55 L 12 137/69 99 09/15/18 01:30 51 L 23 137/69 98 09/15/18 01:00 56 L 15 123/66 98 09/15/18 00:30 58 L 15 123/66 98 09/15/18 00:00 98.4 F 66 18 130/80 98 09/14/18 23:30 15 130/80 98 09/14/18 23:00 72 12 142/68 96 09/14/18 22:36 78 11 L 142/68 98 09/14/18 22:30 82 12 142/68 99 09/14/18 22:20 76 5 L 151/76 98 09/14/18 22:10 77 13 151/76 100 09/14/18 22:00 77 10 L 151/76 98 09/14/18 21:50 80 13 151/76 98 09/14/18 21:40 81 10 L 100 09/14/18 21:39 81 11 L 98 09/14/18 20:39 98.1 F 85 16 132/62 100 09/14/18 19:40 98.5 F 79 12 142/68 97 Intake and Output 09/15/18 09/15/18 09/15/18 06:59 14:59 22:59 Intake Total 800 800 600 Output Total 350 700 Balance 450 100 600 Intake: IV 800 500 600 Sodium Chloride 0.9% 1, 800 500 300 000 ml @ 100 mls/hr IV . Q10H [facility] Rx#:[id number] Intake, IV Titration 300 Amount Magnesium Sulfate-D5w Pmx 300 1 gm In Dextrose/Water 1 100ml.bag @ 100 mls/hr IVPB Q1H [facility] Rx#: [id number] Output: Urine 350 700 Other: # Bowel Movements 1 Weight 89.3 kg 89.3 kg GENERAL: The patient is alert and oriented x3, not in any acute distress. Well developed, well nourished. HEENT: Pupils are round and equally reacting to light. EOMI. No scleral icterus. No conjunctival pallor. Normocephalic, atraumatic. No pharyngeal erythema. No thyromegaly. CARDIOVASCULAR: S1 and S2 present. No murmurs, rubs, or gallops. PULMONARY: Chest is clear to auscultation, no wheezing or crackles. ABDOMEN: Soft, nontender, nondistended, normoactive bowel sounds. No palpable organomegaly. MUSCULOSKELETAL: No joint swelling or deformity. Right BKA EXTREMITIES: No cyanosis, clubbing, or pedal edema. NEUROLOGICAL: Gross neurological examination did not reveal any focal deficits. SKIN: No rashes. Results CBC & Chem 7: 09/15/18 18:20 09/15/18 05:26 Labs: Abnormal Lab Results - Last 24 Hours (Table) 09/14/18 09/14/18 09/14/18 Range/Units 21:16 21:31 23:57 RBC 3.60 L (4.30-5.90) m/uL Hgb 8.5 L (13.0-17.5) gm/dL Hct 27.9 L (39.0-53.0) % MCV 77.6 L (80.0-100.0) fL MCH 23.5 L (25.0-35.0) pg MCHC 30.3 L (31.0-37.0) g/dL RDW 16.8 H (11.5-15.5) % Glucose (74-99) mg/dL POC Glucose (mg/dL) 135 H 192 H (75-99) mg/dL Magnesium (1.6-2.3) mg/dL 09/15/18 09/15/18 09/15/18 Range/Units 05:26 05:58 05:58 RBC 3.33 L (4.30-5.90) m/uL Hgb 7.9 L (13.0-17.5) gm/dL Hct 26.2 L (39.0-53.0) % MCV 78.8 L (80.0-100.0) fL MCH 23.9 L (25.0-35.0) pg MCHC 30.3 L (31.0-37.0) g/dL RDW 16.6 H (11.5-15.5) % Glucose 129 H (74-99) mg/dL POC Glucose (mg/dL) 140 H (75-99) mg/dL Magnesium 1.4 L (1.6-2.3) mg/dL 09/15/18 09/15/18 09/15/18 Range/Units 11:48 12:38 17:46 RBC 3.15 L (4.30-5.90) m/uL Hgb 7.7 L (13.0-17.5) gm/dL Hct 25.2 L (39.0-53.0) % MCV 79.9 L (80.0-100.0) fL MCH 24.4 L (25.0-35.0) pg MCHC 30.6 L (31.0-37.0) g/dL RDW 16.1 H (11.5-15.5) % Glucose (74-99) mg/dL POC Glucose (mg/dL) 165 H 133 H (75-99) mg/dL Magnesium (1.6-2.3) mg/dL 09/15/18 Range/Units 18:20 RBC 3.44 L (4.30-5.90) m/uL Hgb 8.1 L (13.0-17.5) gm/dL Hct 27.0 L (39.0-53.0) % MCV 78.3 L (80.0-100.0) fL MCH 23.4 L (25.0-35.0) pg MCHC 29.9 L (31.0-37.0) g/dL RDW 16.6 H (11.5-15.5) % Glucose (74-99) mg/dL POC Glucose (mg/dL) (75-99) mg/dL Magnesium (1.6-2.3) mg/dL Thrombosis Risk Factor Assmnt - Choose All That Apply Any of the Below Risk Factors Present?: No Other Risk Factors: Yes Each Risk Factor Represents 2 Points: Age 61-74 years Other congenital or acquired thrombophilia - If yes, enter type in comment: No Thrombosis Risk Factor Assessment Total Risk Factor Score: 2 Thrombosis Risk Factor Assessment Level: Low Risk Assessment and Plan Assessment: Painless blood per rectum Acute blood loss anemia Diabetes mellitus Hypertension Hyperlipidemia History of coronary artery disease status post cardiac cath and stenting History of TIA/CVA History of right below-knee amputation Plan: This is a pleasant 68 years old male who presents because of acute blood loss anemia and GI bleed. His EGD was showing only mild gastritis. Patient will have colonoscopy. GI and critical care team are following the patient closely. Patient is on Protonix twice a day and IV fluids as well Labs and medication were reviewed.. Continue same treatment. Continue with symptomatic treatment. Resume home medication. Monitor lytes and vitals. DVT and GI prophylaxis. Further recommendations of the clinical course of the patient DVT prophylaxis: No heparin and review of GI bleed GI Prophylaxis: Ppi Prognosis is guarded
[2018-09-15 19:10] LABS: Hemoglobin A1C 6.8 % (4.0-6.0)
[2018-09-15 23:51] LABS: Glucose,Whole Blood 120 mg/dL (75-99)
[2018-09-16 00:23] LABS: Anisocytosis Slight; Basophils % (A) 0 %; Eosinophils # (A) 0.3 k/uL (0-0.7); Eosinophils % (A) 3 %; HCT 26.9 % (39.0-53.0); HGB 8.5 gm/dL (13.0-17.5); Hypochromasia Slight; Lymphocytes % (A) 18 %; MCH 23.7 pg (25.0-35.0); MCHC 31.5 g/dL (31.0-37.0); MCV 75.3 fL (80.0-100.0); Mean Platelet Volume 8.5; Microcytosis Slight; Monocytes # (A) 0.5 k/uL (0-1.0); Monocytes % (A) 4 %; Neutrophils # (A) 8.2 k/uL (1.3-7.7); Neutrophils % (A) 74 %; Platelet Count 231 k/uL (150-450); RBC 3.58 m/uL (4.30-5.90); RDW 16.4 % (11.5-15.5); WBC 11.1 k/uL (3.8-10.6)
[2018-09-16] MEDS: Acetaminophen-Codeine 300-30mg TAB PO PRN ×4 (02:24→22:04)
[2018-09-16] MEDS: INSULIN ASPART (NovoLOG) 100 UNIT/ML VIAL SQ SCH ×4 (02:36→20:38)
[2018-09-16 06:04] LABS: Glucose,Whole Blood 133 mg/dL (75-99)
[2018-09-16 06:40] LABS: Anisocytosis Slight; Basophils # (A) 0.1 k/uL (0-0.2); Basophils % (A) 1 %; Eosinophils # (A) 0.2 k/uL (0-0.7); Eosinophils % (A) 3 %; HCT 26.4 % (39.0-53.0); Hypochromasia Marked; Lymphocytes # (A) 1.7 k/uL (1.0-4.8); Lymphocytes % (A) 28 %; MCH 24.4 pg (25.0-35.0); MCHC 30.4 g/dL (31.0-37.0); MCV 80.1 fL (80.0-100.0); Mean Platelet Volume 8.7; Monocytes # (A) 0.3 k/uL (0-1.0); Monocytes % (A) 4 %; Neutrophils # (A) 3.8 k/uL (1.3-7.7); Neutrophils % (A) 63 %; Platelet Count 213 k/uL (150-450); RBC 3.29 m/uL (4.30-5.90); RDW 16.3 % (11.5-15.5); WBC 6.1 k/uL (3.8-10.6)
[2018-09-16 06:56] LABS: Anion Gap 7 mmol/L; Carbon Dioxide 26 mmol/L (22-30); Chloride 105 mmol/L (98-107); Glucose 128 mg/dL (74-99); Potassium 4.1 mmol/L (3.5-5.1); Sodium 138 mmol/L (137-145)
[2018-09-16 06:57] LABS: Blood Urea Nitrogen 9 mg/dL (9-20); Calcium 9.4 mg/dL (8.4-10.2); Magnesium 1.8 mg/dL (1.6-2.3)
[2018-09-16] MEDS: GABAPENTIN 100 MG CAP PO SCH ×3 (08:41→22:04)
[2018-09-16] MEDS: METOPROLOL TARTRATE 50 MG TAB PO SCH ×2 (08:41→21:55)
[2018-09-16] MEDS: PANTOPRAZOLE 40 MG/10 ML VIAL IVP SCH ×2 (08:42→22:04)
[2018-09-16] MEDS: MAGNESIUM SULFATE-D5W PMX 1 GM in DEXTROSE/WATER 1 100ML.BAG IVPB SCH ×2 (08:42→11:27)
--- NOTE | 2018-09-16 11:33 | PN ---
PROGRESS NOTE DATE OF SERVICE: 09/16/2018 The patient is a 68 -year-old pleasant white male admitted to the hospital with acute GI bleed. He had multiple episodes of maroon colored stools for 2 days duration associated with clots. He denies any abdominal pain. No nausea or vomiting. Initial hemoglobin was 9.5, dropped to 7.7 and today it is 8.1 g/dL. He had an upper endoscopy done by Dr. Jett yesterday that showed evidence of mild gastritis. He was scheduled for a colonoscopy for possible diverticular bleed, but patient could not take the prep and hence the procedure was canceled. This morning he is feeling good. He denies any abdominal pain. No further bleeding. He had some brown colored stools early this morning. PHYSICAL EXAMINATION: He appears comfortable, in no apparent distress. Vital signs stable. Blood pressure is 132/61, pulse is 54, temperature 97. HEENT: Unremarkable. Conjunctivae pink. Sclerae anicteric. Oral cavity no lesions. CHEST: Clear to auscultation. HEART: Regular rate and rhythm. ABDOMEN: Soft. Bowel sounds are positive. No organomegaly. Extremities: No pedal edema. SKIN: No rashes. NEUROLOGICAL: Alert and oriented x3. No focal deficits. LABS: Done today WBC is 6.5, hemoglobin 8, platelets are 213. Basic metabolic panel is within normal limits. IMPRESSION: 1. Acute gastrointestinal bleed, possibly diverticular in nature. He underwent an upper endoscopy by Dr. Jett yesterday which showed mild gastritis. He was scheduled for colonoscopy today, but patient could not handle the prep and hence the procedure was canceled. He remains stable. No further bleeding. Hemoglobin at 8.1 g/dL. 2. Status post right below-knee amputation 6 weeks ago. RECOMMENDATIONS: 1. CBC every 12 hours. 2. Clear liquid diet. 3. Encourage the patient to continue with a GoLYTELY prep and will reschedule for colonoscopy tomorrow. The patient is agreeable to it. Thank you for this consultation. MMODL / IJN: [id number] /
[2018-09-16 12:30] LABS: Glucose,Whole Blood 139 mg/dL (75-99)
--- NOTE | 2018-09-16 13:18 | P.PN ---
Subjective This is a pleasant 68 years old male with past medical history of TIA/CVA, heart failure, diabetes mellitus, hypertension, hyperlipidemia, coronary artery disease status post cardiac Stenting. Status Post Right below Knee Amputation. Patient at [facility] Post Hospitalization Was Started Having Diarrhea but Rather Than Stool He Was Passing Fresh Blood with Clots. However Patient Denies Abdominal Pain No Nausea or Vomiting. Patient Came to Emergency Room, His Vitals Included Blood Pressure Was Stable However He Has His Hemoglobin Dropping 9.5, to 7.9, 7.7 and Currently 8.1. Patient Has Been Evaluated by Gastroenterology Team. Patient Underwent EGD Today Showing Mild Gastritis. However Patient Is Planned for Colonoscopy Tomorrow and Possible Video Capsule Endoscopy Benefits Indicated. 08/30/2018 Patient was seen and examined in the ICU.he is here for painless blood per rectum He denies abdominal pain. No chest pain or dyspnea. He is status post EGD yesterday. He is supposed to go for colonoscopy today but this was canceled because of incomplete I. I discussed the case with the GI team and the plan for colonoscopy tomorrow..keep on entering the patient in the ICU. His leukocytosis is improving. His hemoglobin showed slight drop from 8.5 down to 8.0.lectrolytes are stable.we will keep patient currently on a Protonix twice a day. And keep monitoring the patient and the critical care unit. Objective - Vital Signs Vital signs: Vital Signs Temp 97.8 F 09/16/18 08:00 Pulse 51 L 09/16/18 11:00 Resp 64 H 09/16/18 10:00 BP 155/68 09/16/18 11:00 Pulse Ox 99 09/16/18 09:00 Intake & Output 09/15/18 09/16/18 09/16/18 18:59 06:59 18:59 Intake Total 1500 1500 500 Output Total 700 650 300 Balance 800 850 200 Weight 89.3 kg 69.9 kg Intake: IV 1200 1500 300 0.9 1000 300 Sodium Chloride 0.9% 1, 900 500 000 ml @ 100 mls/hr IV . Q10H [facility] Rx#:[id number] Intake, IV Titration 300 200 Amount Magnesium Sulfate-D5w Pmx 300 1 gm In Dextrose/Water 1 100ml.bag @ 100 mls/hr IVPB Q1H [facility] Rx#: [id number] Magnesium Sulfate-D5w Pmx 200 1 gm In Dextrose/Water 1 100ml.bag @ 100 mls/hr IVPB Q1H [facility] Rx#: [id number] Output: Urine 700 650 300 Other: # Bowel Movements 1 1 - Exam GENERAL: The patient is alert and oriented x3, not in any acute distress. Well developed, well nourished. HEENT: Pupils are round and equally reacting to light. EOMI. No scleral icterus. No conjunctival pallor. Normocephalic, atraumatic. No pharyngeal erythema. No thyromegaly. CARDIOVASCULAR: S1 and S2 present. No murmurs, rubs, or gallops. PULMONARY: Chest is clear to auscultation, no wheezing or crackles. ABDOMEN: Soft, nontender, nondistended, normoactive bowel sounds. No palpable organomegaly. MUSCULOSKELETAL: No joint swelling or deformity. EXTREMITIES: No cyanosis, clubbing, or pedal edema. NEUROLOGICAL: Gross neurological examination did not reveal any focal deficits. SKIN: No rashes. - Labs CBC & Chem 7: 09/16/18 06:01 09/16/18 06:01 Labs: Abnormal Lab Results - Last 24 Hours (Table) 09/15/18 09/15/18 09/15/18 Range/Units 05:58 12:38 17:46 WBC (3.8-10.6) k/uL RBC 3.15 L (4.30-5.90) m/uL Hgb 7.7 L (13.0-17.5) gm/dL Hct 25.2 L (39.0-53.0) % MCV 79.9 L (80.0-100.0) fL MCH 24.4 L (25.0-35.0) pg MCHC 30.6 L (31.0-37.0) g/dL RDW 16.1 H (11.5-15.5) % Neutrophils # (1.3-7.7) k/uL Glucose (74-99) mg/dL POC Glucose (mg/dL) 133 H (75-99) mg/dL Hemoglobin A1c 6.8 H (4.0-6.0) % 09/15/18 09/15/18 09/16/18 Range/Units 18:20 23:39 00:00 WBC 11.1 H (3.8-10.6) k/uL RBC 3.44 L 3.58 L (4.30-5.90) m/uL Hgb 8.1 L 8.5 L (13.0-17.5) gm/dL Hct 27.0 L 26.9 L (39.0-53.0) % MCV 78.3 L 75.3 L (80.0-100.0) fL MCH 23.4 L 23.7 L (25.0-35.0) pg MCHC 29.9 L (31.0-37.0) g/dL RDW 16.6 H 16.4 H (11.5-15.5) % Neutrophils # 8.2 H (1.3-7.7) k/uL Glucose (74-99) mg/dL POC Glucose (mg/dL) 120 H (75-99) mg/dL Hemoglobin A1c (4.0-6.0) % 09/16/18 09/16/18 09/16/18 Range/Units 05:53 06:01 06:01 WBC (3.8-10.6) k/uL RBC 3.29 L (4.30-5.90) m/uL Hgb 8.0 L (13.0-17.5) gm/dL Hct 26.4 L (39.0-53.0) % MCV (80.0-100.0) fL MCH 24.4 L (25.0-35.0) pg MCHC 30.4 L (31.0-37.0) g/dL RDW 16.3 H (11.5-15.5) % Neutrophils # (1.3-7.7) k/uL Glucose 128 H (74-99) mg/dL POC Glucose (mg/dL) 133 H (75-99) mg/dL Hemoglobin A1c (4.0-6.0) % 09/16/18 Range/Units 12:18 WBC (3.8-10.6) k/uL RBC (4.30-5.90) m/uL Hgb (13.0-17.5) gm/dL Hct (39.0-53.0) % MCV (80.0-100.0) fL MCH (25.0-35.0) pg MCHC (31.0-37.0) g/dL RDW (11.5-15.5) % Neutrophils # (1.3-7.7) k/uL Glucose (74-99) mg/dL POC Glucose (mg/dL) 139 H (75-99) mg/dL Hemoglobin A1c (4.0-6.0) % Assessment and Plan Assessment: Painless blood per rectum Acute blood loss anemia Diabetes mellitus Hypertension Hyperlipidemia History of coronary artery disease status post cardiac cath and stenting History of TIA/CVA History of right below-knee amputation Plan: This is a pleasant 68 years old male who presents because of acute blood loss anemia and GI bleed. His EGD was showing only mild gastritis. Patient will have colonoscopy. GI and critical care team are following the patient closely. Patient is on Protonix twice a day and IV fluids as well Labs and medication were reviewed.. Continue same treatment. Continue with symptomatic treatment. Resume home medication. Monitor lytes and vitals. DVT and GI prophylaxis. Further recommendations of the clinical course of the patient DVT prophylaxis: No heparin and review of GI bleed GI Prophylaxis: Ppi Prognosis is guarded
--- NOTE | 2018-09-16 13:50 | P.PN ---
Subjective Progress Note Date: 09/16/18 Principal diagnosis: GI blood loss, and anemia this is a 60-year-old white male with history ofperipheral vessel occlusive disease, and recent below-knee amputation of the right lower extremity. Patient is also known to have history of diabetes, hypertension, medically neuropathy, patient presented to the ER mostly with chief complaint of bright red blood per rectum for the last 1 day. He was feeling generally weak, denies any abdominal pain, no nausea, no vomiting, no hematemesis. Patient had mostly bright red blood per rectum symptoms. Patient became quite concerned, he presented to the ER, and his labs showed a hemoglobin of 8.5, and low indices suggestive of iron deficiency anemia and blood loss. Patient was admitted, did not require any blood transfusion yet, his repeat hemoglobin this morning is 7.9. Patient denies any chest pain, no cough no wheezing no shortness of breath, no nausea no vomiting, no abdominal pain. No dysuria frequency or urgency urgency denies any hematuria. Patient was reevaluated today on 09/16/2018, remains in the ICU, hemoglobin is holding at 8, it was 8.5 yesterday. Did not require any transfusion at this point yet. Underwent EGD, was found to have mild to moderate gastritis, had biopsies of the antrum body, and duodenal biopsies were done. No active bleeding was noted, patient was scheduled to undergo colonoscopy today, however the patient could not take his prep, and the colonoscopy may have to be done on Tuesday. In the meantime the patient remains hemodynamically stable, no clinical evidence of significant bleeding, continues to have multiple episodes of maroon colored stools for the last 2 days. Associated sometimes with clots. No nausea, no vomiting, no hematemesis. He was seen by Dr. James yet today, and she is planning colonoscopy next Tuesday. Objective - Vital Signs Vital signs: Vital Signs Temp 97.8 F 09/16/18 08:00 Pulse 51 L 09/16/18 11:00 Resp 64 H 09/16/18 10:00 BP 155/68 09/16/18 11:00 Pulse Ox 99 09/16/18 09:00 Intake & Output 09/15/18 09/16/18 09/16/18 18:59 06:59 18:59 Intake Total 1500 1500 500 Output Total 700 650 300 Balance 800 850 200 Weight 89.3 kg 69.9 kg Intake: IV 1200 1500 300 0.9 1000 300 Sodium Chloride 0.9% 1, 900 500 000 ml @ 100 mls/hr IV . Q10H [facility] Rx#:[id number] Intake, IV Titration 300 200 Amount Magnesium Sulfate-D5w Pmx 300 1 gm In Dextrose/Water 1 100ml.bag @ 100 mls/hr IVPB Q1H [facility] Rx#: [id number] Magnesium Sulfate-D5w Pmx 200 1 gm In Dextrose/Water 1 100ml.bag @ 100 mls/hr IVPB Q1H [facility] Rx#: [id number] Output: Urine 700 650 300 Other: # Bowel Movements 1 1 - Exam Physical Exam: Revealed 68 year-old white male very pleasant in no distress. Head: Atraumatic, normocephalic. HEENT:[Neck is supple.] [No neck masses.] [No thyromegaly.] [No JVD.]PERRLA, EOMI, no icterus. Chest: [Clear throughout, no crackles, no rhonchi, no wheezes.] Cardiac Exam: [Normal S1 and S2, no S3 gallop, no murmur.] Abdomen: [Soft, nontender, no megaly, no rebound, no guarding, normal bowel sounds.] Extremities: [No clubbing, no edema, no cyanosis.]right below-knee amputation is noted. Neurological Exam: [No focal neurologic deficit.]alert oriented 3. Psychiatric: Normal mood, affect and mental status examination. Skin: No rashes. Pharynx: No lymphadenopathy palpable - Labs CBC & Chem 7: 09/16/18 06:01 09/16/18 06:01 Labs: Abnormal Lab Results - Last 24 Hours (Table) 09/15/18 09/15/18 09/15/18 Range/Units 05:58 17:46 18:20 WBC (3.8-10.6) k/uL RBC 3.44 L (4.30-5.90) m/uL Hgb 8.1 L (13.0-17.5) gm/dL Hct 27.0 L (39.0-53.0) % MCV 78.3 L (80.0-100.0) fL MCH 23.4 L (25.0-35.0) pg MCHC 29.9 L (31.0-37.0) g/dL RDW 16.6 H (11.5-15.5) % Neutrophils # (1.3-7.7) k/uL Glucose (74-99) mg/dL POC Glucose (mg/dL) 133 H (75-99) mg/dL Hemoglobin A1c 6.8 H (4.0-6.0) % 09/15/18 09/16/18 09/16/18 Range/Units 23:39 00:00 05:53 WBC 11.1 H (3.8-10.6) k/uL RBC 3.58 L (4.30-5.90) m/uL Hgb 8.5 L (13.0-17.5) gm/dL Hct 26.9 L (39.0-53.0) % MCV 75.3 L (80.0-100.0) fL MCH 23.7 L (25.0-35.0) pg MCHC (31.0-37.0) g/dL RDW 16.4 H (11.5-15.5) % Neutrophils # 8.2 H (1.3-7.7) k/uL Glucose (74-99) mg/dL POC Glucose (mg/dL) 120 H 133 H (75-99) mg/dL Hemoglobin A1c (4.0-6.0) % 09/16/18 09/16/18 09/16/18 Range/Units 06:01 06:01 12:18 WBC (3.8-10.6) k/uL RBC 3.29 L (4.30-5.90) m/uL Hgb 8.0 L (13.0-17.5) gm/dL Hct 26.4 L (39.0-53.0) % MCV (80.0-100.0) fL MCH 24.4 L (25.0-35.0) pg MCHC 30.4 L (31.0-37.0) g/dL RDW 16.3 H (11.5-15.5) % Neutrophils # (1.3-7.7) k/uL Glucose 128 H (74-99) mg/dL POC Glucose (mg/dL) 139 H (75-99) mg/dL Hemoglobin A1c (4.0-6.0) % Assessment and Plan Assessment: impression: 1 acute GI bleeding, most likely lower GI in nature, differential diagnoses includes diverticular disease, or internal hemorrhoids.this is most likely exacerbated by the fact that the patient has been on Plavix and aspirin. 2acute blood loss/anemia. 3 multiple comorbidities including diabetes, hypertension, peripheral vessel occlusive disease and recent right below-knee amputation. 4 status post EGD, no active bleeding was noted, multiple biopsies were done, patient is scheduled to undergo colonoscopy on Tuesday. Recommendation: Continue present treatment plan and supportive care measures, continue to monitor hemoglobin and hematocrit, so far did not require any blood transfusion, however if his hemoglobin drops below 7, at that point I believe a blood transfusion will be indicated. Follow the recommendations of the cableman on the case, agree with colonoscopy next Tuesday as scheduled. We'll continue to follow. Time with Patient: Less than 30
[2018-09-16 18:18] LABS: Glucose,Whole Blood 96 mg/dL (75-99)
[2018-09-17] MEDS: INSULIN ASPART (NovoLOG) 100 UNIT/ML VIAL SQ SCH ×5 (00:08→21:39)
[2018-09-17 00:09] LABS: Glucose,Whole Blood 112 mg/dL (75-99)
[2018-09-17 06:05] LABS: Glucose,Whole Blood 129 mg/dL (75-99)
[2018-09-17 06:20] LABS: Anisocytosis Slight; Basophils % (A) 1 %; Eosinophils # (A) 0.2 k/uL (0-0.7); Eosinophils % (A) 4 %; HCT 24.5 % (39.0-53.0); HGB 7.5 gm/dL (13.0-17.5); Hypochromasia Moderate; Lymphocytes # (A) 1.3 k/uL (1.0-4.8); Lymphocytes % (A) 25 %; MCH 23.8 pg (25.0-35.0); MCHC 30.7 g/dL (31.0-37.0); MCV 77.4 fL (80.0-100.0); Mean Platelet Volume 9.2; Microcytosis Slight; Monocytes # (A) 0.3 k/uL (0-1.0); Monocytes % (A) 5 %; Neutrophils # (A) 3.3 k/uL (1.3-7.7); Neutrophils % (A) 64 %; Platelet Count 179 k/uL (150-450); RBC 3.17 m/uL (4.30-5.90); RDW 16.7 % (11.5-15.5); WBC 5.1 k/uL (3.8-10.6)
[2018-09-17 06:29] LABS: Anion Gap 7 mmol/L; Blood Urea Nitrogen 7 mg/dL (9-20); Carbon Dioxide 27 mmol/L (22-30); Chloride 105 mmol/L (98-107); Glucose 120 mg/dL (74-99); Magnesium 1.6 mg/dL (1.6-2.3); Potassium 3.8 mmol/L (3.5-5.1); Sodium 139 mmol/L (137-145)
[2018-09-17] MEDS ORDERED: Potassium Replacement Protocol 1 EACH MISC MISCELLANE PRN (06:42)
[2018-09-17] MEDS: POTASSIUM CHLORIDE 10 MEQ in WATER FOR INJECTION 1 100ML.BAG IVPB SCH ×2 (07:19→11:42)
[2018-09-17] MEDS: MAGNESIUM SULFATE-D5W PMX 1 GM in DEXTROSE/WATER 1 100ML.BAG IVPB SCH ×2 (07:19→11:42)
[2018-09-17] MEDS ORDERED: PROPOFOL 10 MG/ML 20 ML VIAL IV ONE (08:04)
[2018-09-17] MEDS ORDERED: LIDOCAINE 1% INJ 10MG/ML (20 ML MDV) ONE (08:04)
[2018-09-17] MEDS ORDERED: IV FLUID CONTINUATION 1,000 ML IV ONE (08:04)
--- NOTE | 2018-09-17 08:23 | P.PCN ---
Date of Procedure: 09/17/18 Procedure(s) Performed: BRIEF HISTORY: Patient is a 68[facility], admitted to the hospital with acute GI bleed. His hemoglobin from 11-8 g/dL. He had an upper endoscopy done [address] bennett which showed gastritis. He is hence scheduled for colonoscopy to evaluate the source of recent acute GI bleed. PROCEDURE PERFORMED: Colonoscopy. PREOPERATIVE DIAGNOSIS: acute GI bleed. IV sedation per Anesthesia. PROCEDURE: After informed consent was obtained, the patient, was brought into the endoscopy unit. IV sedation was administered by Anesthesia under continuous monitoring. Digital rectal examination was normal. Initially the Olympus CF-160 flexible video colonoscope was then inserted in the rectum, gradually advanced into the cecum without any difficulty. Careful examination was performed as the scope was gradually being withdrawn. Ileocecal valve and the appendiceal orifice were visualized and appeared normal. Prep was excellent. Mucosa of the cecum, ascending colon, transverse colon, descending colon, sigmoid colon, and rectum appeared normal. Retroflexion was performed in the rectum and no lesions were seen. scattered left sided diverticulosis The patient tolerated the procedure well. IMPRESSION: Normal-appearing colon from rectum to cecum with no evidence of colitis or colorectal neoplasia. Scattered left-sided diverticulosis RECOMMENDATIONS: Findings of this examination were discussed with the patient as well as a family. Recent GI bleed most likely diverticular in nature which has spontaneously resolved. Diet will be advanced as tolerated..
[2018-09-17] MEDS: PANTOPRAZOLE 40 MG/10 ML VIAL IVP SCH ×2 (11:40→21:37)
[2018-09-17] MEDS: METOPROLOL TARTRATE 50 MG TAB PO SCH ×2 (11:40→21:38)
[2018-09-17] MEDS: Acetaminophen-Codeine 300-30mg TAB PO PRN ×3 (11:40→21:42)
[2018-09-17] MEDS: GABAPENTIN 100 MG CAP PO SCH ×3 (11:41→21:38)
[2018-09-17 12:20] LABS: Glucose,Whole Blood 141 mg/dL (75-99)
--- NOTE | 2018-09-17 14:25 | P.PN ---
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 Patient is also known to have history of diabetes, hypertension, medically neuropathy, patient presented to the ER mostly with chief complaint of bright red blood per rectum for the last 1 day. He was feeling generally weak, denies any abdominal pain, no nausea, no vomiting, no hematemesis. Patient had mostly bright red blood per rectum symptoms. Patient became quite concerned, he presented to the ER, and his labs showed a hemoglobin of 8.5, and low indices suggestive of iron deficiency anemia and blood loss. Patient was admitted, did not require any blood transfusion yet, his repeat hemoglobin this morning is 7.9. Patient denies any chest pain, no cough no wheezing no shortness of breath, no nausea no vomiting, no abdominal pain. No dysuria frequency or urgency urgency denies any hematuria. Patient was reevaluated today on 09/16/2018, remains in the ICU, hemoglobin is holding at 8, it was 8.5 yesterday. Did not require any transfusion at this point yet. Underwent EGD, was found to have mild to moderate gastritis, had biopsies of the antrum body, and duodenal biopsies were done. No active bleeding was noted, patient was scheduled to undergo colonoscopy today, however the patient could not take his prep, and the colonoscopy may have to be done on Tuesday. In the meantime the patient remains hemodynamically stable, no clinical evidence of significant bleeding, continues to have multiple episodes of maroon colored stools for the last 2 days. Associated sometimes with clots. No nausea, no vomiting, no hematemesis. He was seen by Dr. James yet today, and she is planning colonoscopy next Tuesday. Patient was reevaluated today on 09/17/2018, doing quite well. Asymptomatic. Patient underwent colonoscopy today, and he was found to have no evidence of colitis or colorectal neoplasia, patient was found to have left-sided diverticulosis. And it was felt by gastroenterology that the patient had diverticular bleed that spontaneously resolved. Hence the diet will be advanced, and it will be as tolerated. Hemodynamically the patient is stable, his hemoglobin is holding nicely at 7.5 today, and I will go ahead and recommended the patient be transferred to a regular medical floor today and possibly discharge the patient home in the next 24 hours Objective - Vital Signs Vital signs: Vital Signs Temp 98.4 F 09/17/18 12:00 Pulse 85 09/17/18 12:00 Resp 31 H 09/17/18 12:00 BP 154/72 09/17/18 12:00 Pulse Ox 98 09/17/18 12:00 Intake & Output 09/16/18 09/17/18 09/17/18 18:59 06:59 18:59 Intake Total 1200 1200 1100 Output Total 950 1600 600 Balance 250 -400 500 Weight 89.3 kg Intake: IV 1000 1200 600 0.9 1000 1200 500 Intake, IV Titration 200 Amount Magnesium Sulfate-D5w Pmx 200 1 gm In Dextrose/Water 1 100ml.bag @ 100 mls/hr IVPB Q1H [facility] Rx#: [id number] Oral 500 Output: Urine 950 1600 600 Other: Voiding Method Urinal Urinal Urinal # Bowel Movements 2 - Exam Physical Exam: Revealed 68 year-old white male very pleasant in no distress. Head: Atraumatic, normocephalic. HEENT:[Neck is supple.] [No neck masses.] [No thyromegaly.] [No JVD.]PERRLA, EOMI, no icterus. Chest: [Clear throughout, no crackles, no rhonchi, no wheezes.] Cardiac Exam: [Normal S1 and S2, no S3 gallop, no murmur.] Abdomen: [Soft, nontender, no megaly, no rebound, no guarding, normal bowel sounds.] Extremities: [No clubbing, no edema, no cyanosis.]right below-knee amputation is noted. Neurological Exam: [No focal neurologic deficit.]alert oriented 3. Psychiatric: Normal mood, affect and mental status examination. Skin: No rashes. Pharynx: No lymphadenopathy palpable - Labs CBC & Chem 7: 09/17/18 05:59 09/17/18 05:59 Labs: Abnormal Lab Results - Last 24 Hours (Table) 09/16/18 09/17/18 09/17/18 Range/Units 23:57 05:53 05:59 RBC (4.30-5.90) m/uL Hgb (13.0-17.5) gm/dL Hct (39.0-53.0) % MCV (80.0-100.0) fL MCH (25.0-35.0) pg MCHC (31.0-37.0) g/dL RDW (11.5-15.5) % BUN 7 L (9-20) mg/dL Glucose 120 H (74-99) mg/dL POC Glucose (mg/dL) 112 H 129 H (75-99) mg/dL 09/17/18 09/17/18 Range/Units 05:59 12:08 RBC 3.17 L (4.30-5.90) m/uL Hgb 7.5 L (13.0-17.5) gm/dL Hct 24.5 L (39.0-53.0) % MCV 77.4 L (80.0-100.0) fL MCH 23.8 L (25.0-35.0) pg MCHC 30.7 L (31.0-37.0) g/dL RDW 16.7 H (11.5-15.5) % BUN (9-20) mg/dL Glucose (74-99) mg/dL POC Glucose (mg/dL) 141 H (75-99) mg/dL Assessment and Plan Assessment: impression: 1 acute GI bleeding, most likely diverticular in nature, patient underwent nondiagnostic EGD and nondiagnostic colonoscopy. No evidence of active bleeding in both procedures. 2acute blood loss/anemia. Hemoglobin is presently at 7.5, and seems to be holding well. 3 multiple comorbidities including diabetes, hypertension, peripheral vessel occlusive disease and recent right below-knee amputation. 4 status post EGD, no active bleeding was noted, multiple biopsies were done, colonoscopy was basically nondiagnostic except for no evidence of bleeding and there was left sided diverticulosis. Recommendation: Continue present treatment plan and supportive care measures, transfer patient out of the ICU to a regular medical floor, continue to monitor hemoglobin and a.m., and if remains stable consider discharge planning and follow-up on outpatient basis with his primary care physician and gastroenterology. Time with Patient: Less than 30
--- NOTE | 2018-09-17 16:24 | P.PN ---
Subjective This is a pleasant 68 years old male with past medical history of TIA/CVA, heart failure, diabetes mellitus, hypertension, hyperlipidemia, coronary artery disease status post cardiac Stenting. Status Post Right below Knee Amputation. Patient at [facility] Post Hospitalization Was Started Having Diarrhea but Rather Than Stool He Was Passing Fresh Blood with Clots. However Patient Denies Abdominal Pain No Nausea or Vomiting. Patient Came to Emergency Room, His Vitals Included Blood Pressure Was Stable However He Has His Hemoglobin Dropping 9.5, to 7.9, 7.7 and Currently 8.1. Patient Has Been Evaluated by Gastroenterology Team. Patient Underwent EGD Today Showing Mild Gastritis. However Patient Is Planned for Colonoscopy Tomorrow and Possible Video Capsule Endoscopy Benefits Indicated. 09/16/2018 Patient was seen and examined in the ICU.he is here for painless blood per rectum He denies abdominal pain. No chest pain or dyspnea. He is status post EGD yesterday. He is supposed to go for colonoscopy today but this was canceled because of incomplete I. I discussed the case with the GI team and the plan for colonoscopy tomorrow..keep on entering the patient in the ICU. His leukocytosis is improving. His hemoglobin showed slight drop from 8.5 down to 8.0.lectrolytes are stable.we will keep patient currently on a Protonix twice a day. And keep monitoring the patient and the critical care unit. 09/17/2018 Patient is doing well, 13 that well no abdominal pain or dyspnea. Patient is status post colonoscopy today with showing diverticulosis only. Possible spontaneous bleeding diverticular disease that is he'll now as per GI recommendations. Patient vitals looks stable. Hemoglobin is slightly less from 8.0 down to 7.5. Patient remains on Protonix twice a day. Objective - Vital Signs Vital signs: Vital Signs Temp 98.4 F 09/17/18 12:00 Pulse 85 09/17/18 12:00 Resp 31 H 09/17/18 12:00 BP 154/72 09/17/18 12:00 Pulse Ox 98 09/17/18 12:00 Intake & Output 09/16/18 09/17/18 09/17/18 18:59 06:59 18:59 Intake Total 1200 1200 1500 Output Total 950 1600 600 Balance 250 -400 900 Weight 89.3 kg Intake: IV 1000 1200 1000 0.9 1000 1200 900 Intake, IV Titration 200 Amount Magnesium Sulfate-D5w Pmx 200 1 gm In Dextrose/Water 1 100ml.bag @ 100 mls/hr IVPB Q1H [facility] Rx#: [id number] Oral 500 Output: Urine 950 1600 600 Other: Voiding Method Urinal Urinal Urinal # Bowel Movements 2 - Exam GENERAL: The patient is alert and oriented x3, not in any acute distress. Well developed, well nourished. HEENT: Pupils are round and equally reacting to light. EOMI. No scleral icterus. No conjunctival pallor. Normocephalic, atraumatic. No pharyngeal erythema. No thyromegaly. CARDIOVASCULAR: S1 and S2 present. No murmurs, rubs, or gallops. PULMONARY: Chest is clear to auscultation, no wheezing or crackles. ABDOMEN: Soft, nontender, nondistended, normoactive bowel sounds. No palpable organomegaly. MUSCULOSKELETAL: No joint swelling or deformity. EXTREMITIES: No cyanosis, clubbing, or pedal edema. NEUROLOGICAL: Gross neurological examination did not reveal any focal deficits. SKIN: No rashes. - Labs CBC & Chem 7: 09/17/18 05:59 09/17/18 05:59 Labs: Abnormal Lab Results - Last 24 Hours (Table) 09/16/18 09/17/18 09/17/18 Range/Units 23:57 05:53 05:59 RBC (4.30-5.90) m/uL Hgb (13.0-17.5) gm/dL Hct (39.0-53.0) % MCV (80.0-100.0) fL MCH (25.0-35.0) pg MCHC (31.0-37.0) g/dL RDW (11.5-15.5) % BUN 7 L (9-20) mg/dL Glucose 120 H (74-99) mg/dL POC Glucose (mg/dL) 112 H 129 H (75-99) mg/dL 09/17/18 09/17/18 Range/Units 05:59 12:08 RBC 3.17 L (4.30-5.90) m/uL Hgb 7.5 L (13.0-17.5) gm/dL Hct 24.5 L (39.0-53.0) % MCV 77.4 L (80.0-100.0) fL MCH 23.8 L (25.0-35.0) pg MCHC 30.7 L (31.0-37.0) g/dL RDW 16.7 H (11.5-15.5) % BUN (9-20) mg/dL Glucose (74-99) mg/dL POC Glucose (mg/dL) 141 H (75-99) mg/dL Assessment and Plan Assessment: Painless blood per rectum Acute blood loss anemia Diabetes mellitus Hypertension Hyperlipidemia History of coronary artery disease status post cardiac cath and stenting History of TIA/CVA History of right below-knee amputation Plan: This is a pleasant 68 years old male who presents because of acute blood loss anemia and GI bleed. His EGD was showing only mild gastritis. Patient will have colonoscopy. GI and critical care team are following the patient closely. Patient is on Protonix twice a day and IV fluids as well Labs and medication were reviewed.. Continue same treatment. Continue with symptomatic treatment. Resume home medication. Monitor lytes and vitals. DVT and GI prophylaxis. Further recommendations of the clinical course of the patient DVT prophylaxis: No heparin and review of GI bleed GI Prophylaxis: Ppi Prognosis is guarded
[2018-09-17 17:16] LABS: Glucose,Whole Blood 144 mg/dL (75-99)
[2018-09-17 21:16] LABS: Glucose,Whole Blood 202 mg/dL (75-99)
[2018-09-18] MEDS: Acetaminophen-Codeine 300-30mg TAB PO PRN ×3 (06:41→17:02)
[2018-09-18 07:24] LABS: Glucose,Whole Blood 173 mg/dL (75-99)
[2018-09-18] MEDS: PANTOPRAZOLE 40 MG/10 ML VIAL IVP SCH (08:27)
[2018-09-18] MEDS: METOPROLOL TARTRATE 50 MG TAB PO SCH (08:27)
[2018-09-18] MEDS: GABAPENTIN 100 MG CAP PO SCH ×2 (08:27→17:00)
[2018-09-18] MEDS: INSULIN ASPART (NovoLOG) 100 UNIT/ML VIAL SQ SCH ×2 (08:27→12:55)
[2018-09-18 11:55] LABS: Anisocytosis Slight; Basophils # (A) 0.1 k/uL (0-0.2); Basophils % (A) 1 %; Eosinophils # (A) 0.3 k/uL (0-0.7); Eosinophils % (A) 4 %; HCT 26.6 % (39.0-53.0); HGB 8.3 gm/dL (13.0-17.5); Hypochromasia Moderate; Lymphocytes # (A) 1.9 k/uL (1.0-4.8); Lymphocytes % (A) 27 %; MCH 24.6 pg (25.0-35.0); MCHC 31.2 g/dL (31.0-37.0); MCV 78.8 fL (80.0-100.0); Mean Platelet Volume 9.1; Monocytes # (A) 0.3 k/uL (0-1.0); Monocytes % (A) 4 %; Neutrophils # (A) 4.6 k/uL (1.3-7.7); Neutrophils % (A) 63 %; Platelet Count 249 k/uL (150-450); RBC 3.37 m/uL (4.30-5.90); RDW 16.2 % (11.5-15.5); WBC 7.2 k/uL (3.8-10.6)
[2018-09-18 12:04] LABS: Calcium 9.6 mg/dL (8.4-10.2); Magnesium 1.7 mg/dL (1.6-2.3); Potassium 4.3 mmol/L (3.5-5.1)
[2018-09-18 12:33] LABS: Glucose,Whole Blood 136 mg/dL (75-99)
[2018-09-18 13:48] VITALS: BP 176/78; PULSE 58; RESP 18; TEMP 98
--- NOTE | 2018-09-18 16:18 | P.DS ---
<HumacaoGeorgette jean-baptisteerie - Last Filed: 09/18/18 16:11> Providers Expected date of discharge: 09/18/18 Attending physician: Kelley Tran Hospital Course: Final Diagnoses: Painless blood per rectum Acute blood loss anemia, status post EGD reporting mild gastritis. Colonoscopy reporting diverticulosis. Diabetes mellitus Hypertension Hyperlipidemia History of coronary artery disease status post cardiac cath and stenting History of TIA/CVA History of right below-knee amputation Hospital course:This is a pleasant 68 years old male with past medical history of TIA/CVA, heart failure, diabetes mellitus, hypertension, hyperlipidemia, coronary artery disease status post cardiac Stenting. Status Post Right below Knee Amputation. Patient at [facility] Rehab Post Hospitalization Was Started Having Diarrhea but Rather Than Stool He Was Passing Fresh Blood with Clots. However Patient Denies Abdominal Pain No Nausea or Vomiting. Patient Came to Emergency Room, His Vitals Included Blood Pressure Was Stable However He Has His Hemoglobin Dropping 9.5, to 7.9, 7.7 and Currently 8.1. Patient Has Been Evaluated by Gastroenterology Team. Patient Underwent EGD Today Showing Mild Gastritis. However Patient Is Planned for Colonoscopy Tomorrow and Possible Video Capsule Endoscopy Benefits Indicated. 09/16/2018 Patient was seen and examined in the ICU.he is here for painless blood per rectum He denies abdominal pain. No chest pain or dyspnea. He is status post EGD yesterday. He is supposed to go for colonoscopy today but this was canceled because of incomplete I. I discussed the case with the GI team and the plan for colonoscopy tomorrow..keep on entering the patient in the ICU. His leukocytosis is improving. His hemoglobin showed slight drop from 8.5 down to 8.0.lectrolytes are stable.we will keep patient currently on a Protonix twice a day. And keep monitoring the patient and the critical care unit. 09/17/2018 Patient is doing well, 13 that well no abdominal pain or dyspnea. Patient is status post colonoscopy today with showing diverticulosis only. Possible spontaneous bleeding diverticular disease that is he'll now as per GI recommendations. Patient vitals looks stable. Hemoglobin is slightly less from 8.0 down to 7.5. Patient remains on Protonix twice a day. 09/18/2018 hemoglobin 8.3 .significant clinical improvement. Cleared by GI for discharge. GI has cleared patient to resume aspirin and Plavix. Patient is being discharged to [facility] in a stable condition with guarded prognosis. Exam GENERAL: The patient is alert and oriented x3, not in any acute distress. CARDIOVASCULAR: S1 and S2 present. No murmurs, rubs, or gallops. PULMONARY: Chest is clear to auscultation, no wheezing or crackles. ABDOMEN: Soft, nontender, nondistended, normoactive bowel sounds. NEUROLOGICAL: Gross neurological examination did not reveal any focal deficits. The impression and plan of care has been dictated as directed. : I performed a history and examination of this patient, discussed the same with the dictator. I agree with the dictator's note ,documented as a scribe. Any additional findings or plans will be noted. Time taken: 35 minutes Patient Condition at Discharge: Stable Plan - Discharge Summary New Discharge Prescriptions: New Metoprolol Tartrate [Lopressor] 50 mg PO BID tab Pantoprazole Sodium [Protonix] 40 mg PO BID #60 tablet.dr Telles Acetaminophen-Codeine 300-30mg [Tylenol w/codeine #3] 1 tab PO Q4H PRN PRN Reason: Pain INSULIN LISPRO (humaLOG) [humaLOG] See Protocol SQ ACHS Lactobacillus Acidophilus [Florajen] 460 mg PO BID Cholecalciferol (Vitamin D3) [Vitamin D3] 2,000 unit PO DAILY Multivitamins, Thera [Multivitamin (formulary)] 1 tab PO DAILY Clopidogrel Bisulfate [Plavix] 75 mg PO DAILY Aspirin 325 mg PO DAILY Cbs (Unknown) 1 dose PO DAILY Acetaminophen [Tylenol] 650 mg PO Q4H PRN PRN Reason: Pain Gabapentin [Neurontin] 100 mg PO TID #9 capsule Changed Ferrous Sulfate [Feosol] 325 mg PO BID #0 Discontinued Metoprolol Tartrate [Lopressor] 75 mg PO BID amLODIPine [Norvasc] 10 mg PO DAILY Discharge Medication List Acetaminophen [Tylenol] 650 mg PO Q4H PRN 09/14/18 [History] Acetaminophen-Codeine 300-30mg [Tylenol w/codeine #3] 1 tab PO Q4H PRN 09/14/18 [History] Aspirin 325 mg PO DAILY 09/14/18 [History] Cbs (Unknown) 1 dose PO DAILY 09/14/18 [History] Cholecalciferol (Vitamin D3) [Vitamin D3] 2,000 unit PO DAILY 09/14/18 [History] Clopidogrel Bisulfate [Plavix] 75 mg PO DAILY 09/14/18 [History] INSULIN LISPRO (humaLOG) [humaLOG] See Protocol SQ ACHS 09/14/18 [History] Lactobacillus Acidophilus [Florajen] 460 mg PO BID 09/14/18 [History] Multivitamins, Thera [Multivitamin (formulary)] 1 tab PO DAILY 09/14/18 [History] Ferrous Sulfate [Feosol] 325 mg PO BID #0 09/18/18 [Rx] Gabapentin [Neurontin] 100 mg PO TID #9 capsule 09/18/18 [Rx] Metoprolol Tartrate [Lopressor] 50 mg PO BID tab 09/18/18 [Rx] Pantoprazole Sodium [Protonix] 40 mg PO BID #60 tablet. 09/18/18 [Rx] Follow up Appointment(s)/Referral(s): Betzaida Mann MD [STAFF PHYSICIAN] - 2 Weeks Jose Manuel Villalpando MD [STAFF PHYSICIAN] - 3 Days (while at [facility]) Bill Sainz DO [Primary Care Provider] - 1 Week (After DC from subacute rehab) Piter Jett MD [STAFF PHYSICIAN] - 2 Weeks Patient Instructions/Handouts: Gastrointestinal Bleeding (ED) Activity/Diet/Wound Care/Special Instructions: Cleared to resume Aspirin and Plavix, as per GI follow up with your cardiology technician and primary care doctor in 7-10 days, to discuss with the them the need for (Aspirin) and/or (Plavix) or both in the meantime , continue with protonix 40 mg BID we recommend to check your Hemoglobin 3 times per week. CBC 3 times a week <Sheet,Panda E - Last Filed: 09/18/18 21:07> Providers Date of admission: 09/14/18 18:21 Attending physician: Geni Olea Consults: 09/14/18 18:21 Consult Physician Routine Consulting Provider: Daquan Elmore Consult Reason/Comments: gib Do you want consulting provider notified?: Yes 09/14/18 18:58 Consult Physician Routine Consulting Provider: Betzaida Mann Consult Reason/Comments: icu Do you want consulting provider notified?: Yes Primary care physician: Bill Alistair Hospital Course: pt is stable with no abd or other symptoms upon discharge. his EGD: gastritis , colonoscopy: diverticusis, GI team suspect pt has bleeding diverticulosis which is stopped spontaneously and with medical therapy. pt is on aspirin and plavix , i discussed with pt and his . pt has h/o of cardiac stents 40 yrs ago and he has h/o 2 strokes, and his plavix and asa were prescribed and refilled continuously by his pcp , i explained to them the risks and benefits, of taking and not taking these medications. also discussed with GI team and they recommend to restart these medicaiton . pt was instructed to f/u with his pcp and cardiology technician in 7-10 days to discuss the need for these medication, he is been discharged to rehab with protonix BID pt is stable for discharge
[2018-09-18 17:30] LABS: Glucose,Whole Blood 166 mg/dL (75-99)
== END 2018-09-18 17:38 | DRG 378 ==
LOC: EC 15:07 → 2SICU 18:21 → 4MS4W 09-17 22:49
PROVIDERS: ADMIT Hospitalist; ATTEND Hospitalist
PROC: 0DB98ZX Excision of Duodenum, Via Natural or Artificial Opening Endoscopic, Diagnostic (ICD-10-PCS; 2018-09-15)
PROC: 0DB78ZX Excision of Stomach, Pylorus, Via Natural or Artificial Opening Endoscopic, Diagnostic (ICD-10-PCS; 2018-09-15)
PROC: 0DB68ZX Excision of Stomach, Via Natural or Artificial Opening Endoscopic, Diagnostic (ICD-10-PCS; 2018-09-15)
PROC: 0DJD8ZZ Inspection of Lower Intestinal Tract, Via Natural or Artificial Opening Endoscopic (ICD-10-PCS; principal; 2018-09-17 08:00)
DX: K57.31 Diverticulosis of large intestine without perforation or abscess with bleeding (principal); D62 Acute posthemorrhagic anemia; E11.40 Type 2 diabetes mellitus with diabetic neuropathy, unspecified; I11.0 Hypertensive heart disease with heart failure; I50.9 Heart failure, unspecified; E11.51 Type 2 diabetes mellitus with diabetic peripheral angiopathy without gangrene; D72.829 Elevated white blood cell count, unspecified; E78.5 Hyperlipidemia, unspecified; I25.10 Atherosclerotic heart disease of native coronary artery without angina pectoris; K29.70 Gastritis, unspecified, without bleeding; Z79.02 Long term (current) use of antithrombotics/antiplatelets; Z79.82 Long term (current) use of aspirin; Z79.899 Other long term (current) drug therapy; Z88.8 Allergy status to other drugs, medicaments and biological substances; Z86.73 Personal history of transient ischemic attack (TIA), and cerebral infarction without residual deficits; Z87.891 Personal history of nicotine dependence; Z89.511 Acquired absence of right leg below knee; Z95.5 Presence of coronary angioplasty implant and graft
CPT/HCPCS: 36415; 43239; 45378; 80048; 80053; 83036; 83690; 83735; 84100; 84484; 85025; 85027; 85610; 85730; 86850; 86900; 86901; 88305; 96360; 96361; 99285

== ENCOUNTER 2019-06-27 17:11 | Inpatient (IN) | payer MEDICARE ==
--- NOTE | 2019-06-27 17:46 | ED ---
Extremity Problem HPI - General Source: EMS Mode of arrival: EMS Limitations: physical limitation <Kirstin Sibley - Last Filed: 06/27/19 17:42> <Slade Elias - Last Filed: 06/27/19 21:03> - General Chief complaint: Extremity Problem,Nontraumatic Stated complaint: LEG PAIN Time Seen by Provider: 06/27/19 17:26 - History of Present Illness Initial comments: Patient is a 69-year-old male presenting to the emergency department via EMS for complaints of right leg pain that has been increasing over the past 3 days. 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 He does have a prosthetic that he normally walks with. Patient states he did have a fall about 2 months ago where he fell backward onto his butt and back. Patient states he was ambulating fine after that. He's had no other falls since. Patient states about 3 days ago he started having right gluteus pain that radiates into his right upper thigh. Patient states his pain increases anytime he moves his leg or tries to walk with his prosthetic. Patient takes Tylenol for his pain and occasionally takes Tylenol 3's. Patient received 100 mg of fentanyl and the EMS prior to arrival. He is currently pain-free. He denies fever, chills, back pain, abdominal pain, any other complaints at this time. Upon arrival to ER, his vital signs are stable. (Kirstin Sibley) - Related Data Home Medications Medication Instructions Recorded Confirmed Acetaminophen [Tylenol] 650 mg PO Q4H PRN 09/14/18 09/14/18 Acetaminophen-Codeine 300-30mg 1 tab PO Q4H PRN 09/14/18 09/14/18 [Tylenol w/codeine #3] Aspirin 325 mg PO DAILY 09/14/18 09/14/18 Cbs (Unknown) 1 dose PO DAILY 09/14/18 09/14/18 Cholecalciferol (Vitamin D3) 2,000 unit PO DAILY 09/14/18 09/14/18 [Vitamin D3] Clopidogrel Bisulfate [Plavix] 75 mg PO DAILY 09/14/18 09/14/18 INSULIN LISPRO (humaLOG) [humaLOG] See Protocol SQ ACHS 09/14/18 09/14/18 Lactobacillus Acidophilus 460 mg PO BID 09/14/18 09/14/18 [Florajen] Multivitamins, Thera [Multivitamin 1 tab PO DAILY 09/14/18 09/14/18 (formulary)] Previous Rx's Medication Instructions Recorded Ferrous Sulfate [Feosol] 325 mg PO BID #0 09/18/18 Gabapentin [Neurontin] 100 mg PO TID #9 capsule 09/18/18 Metoprolol Tartrate [Lopressor] 50 mg PO BID tab 09/18/18 Pantoprazole Sodium [Protonix] 40 mg PO BID #60 tablet. 09/18/18 Allergies Allergy/AdvReac Type Severity Reaction Status Date / Time Yblstrs-Hor-Ako Reductase AdvReac Confusion Verified 09/14/18 16:46 Inhibitor Review of Systems ROS Other: All systems not noted in ROS Statement are negative. <Kirstin Sibley - Last Filed: 06/27/19 17:42> ROS Other: All systems not noted in ROS Statement are negative. <Slade Elias - Last Filed: 06/27/19 21:03> ROS Statement: Those systems with pertinent positive or pertinent negative responses have been documented in the HPI. Past Medical History Past Medical History: Heart Failure, CVA/TIA, Diabetes Mellitus, Hyperlipidemia, Hypertension, Vascular Disorder Additional Past Medical History / Comment(s): left arm deficit History of Any Multi-Drug Resistant Organisms: None Reported Past Surgical History: Heart Catheterization With Stent Additional Past Surgical History / Comment(s): right leg below the knee amputation, main artery replaced in heart, carotid replaced Date of Last Stent Placement:: 45 years ago Past Psychological History: No Psychological Hx Reported Smoking Status: Former smoker Past Alcohol Use History: None Reported Past Drug Use History: Marijuana <Kirstin Sibley - Last Filed: 06/27/19 17:42> General Exam Limitations: physical limitation <Kirstin Sibley - Last Filed: 06/27/19 17:42> Limitations: physical limitation General appearance: alert, in no apparent distress Head exam: Present: atraumatic, normocephalic, normal inspection Eye exam: Present: normal appearance, PERRL, EOMI. Absent: scleral icterus, conjunctival injection, periorbital swelling ENT exam: Present: normal exam, mucous membranes moist Neck exam: Present: normal inspection. Absent: tenderness, meningismus, lymphadenopathy Respiratory exam: Present: normal lung sounds bilaterally. Absent: respiratory distress, wheezes, rales, rhonchi, stridor Cardiovascular Exam: Present: regular rate, normal rhythm, normal heart sounds. Absent: systolic murmur, diastolic murmur, rubs, gallop, clicks GI/Abdominal exam: Present: soft, normal bowel sounds. Absent: distended, tenderness, guarding, rebound, rigid Extremities exam: Present: normal inspection, full ROM, normal capillary refill. Absent: tenderness, pedal edema, joint swelling, calf tenderness Back exam: Present: normal inspection Neurological exam: Present: alert, oriented X3, CN II-XII intact Psychiatric exam: Present: normal affect, normal mood Skin exam: Present: warm, dry, intact, normal color. Absent: rash <Slade Elias - Last Filed: 06/27/19 21:03> - General Exam Comments Initial Comments: GENERAL: Well-appearing, well-nourished and in no acute distress. HEAD: Atraumatic, normocephalic. EYES: Pupils equal round and reactive to light, extraocular movements intact, sclera anicteric, conjunctiva are normal. ENT: Nares patent, oropharynx clear without exudates. Moist mucous membranes. NECK: Normal range of motion, supple without lymphadenopathy or JVD. LUNGS: Breath sounds clear to auscultation bilaterally and equal. No wheezes rales or rhonchi. HEART: Regular rate and rhythm without murmurs, rubs or gallops. ABDOMEN: Soft, nontender, normoactive bowel sounds. No guarding, no rebound. No masses appreciated. : Deferred EXTREMITIES: No pain with palpation of the right upper leg, right knee. Patient has some mild pain with palpation of the right SI joint area. He has normal range of motion of the right knee and mild pain with right hip flexion. Wrist no swelling or erythema of the right lower extremity. He has normal sensation equal in bilateral upper legs. PSYCH: Normal mood, normal affect. SKIN: Warm, Dry, normal turgor, no rashes or lesions noted. (Kirstin Sibley) Inability to ambulate Significant right hip pain especially with movement (Slade Elias) Course <Slade Elias - Last Filed: 06/27/19 21:03> Vital Signs 06/27/19 06/27/19 17:14 19:01 Temperature 98.8 F 98.2 F Pulse Rate 69 71 Respiratory 18 17 Rate Blood Pressure 158/74 150/77 O2 Sat by Pulse 98 98 Oximetry - Reevaluation(s) Reevaluation #1: 06/27/19 21:01 Record review (Slade Elias) Reevaluation #2: 06/27/19 21:02 patient has inability to ambulate and inability take care of himself at home (Slade Elias) Medical Decision Making <Kirstin Sibley - Last Filed: 06/27/19 17:42> - Radiology Data Radiology results: report reviewed (CT right hip is positive for fracture), image reviewed <Slade Elias - Last Filed: 06/27/19 21:03> - Medical Decision Making Patient is 69-year-old male presenting with right upper leg pain 3 days. No recent falls or trauma. His history of right below the knee amputation. (Kirstin Sibley) 69 male inability to ambulate denying recent fall or trauma. Patient is osteolytic lesion right leg with fracture. Patient's pain is severe. Will admit for pain control and possible placement (Slade Elias) Disposition <Kirstin Sibley - Last Filed: 06/27/19 17:42> Is patient prescribed a controlled substance at d/c from ED?: No <Slade Elias - Last Filed: 06/27/19 21:03> Clinical Impression: Closed right hip fracture, Osteolytic lesion, Inability to ambulate due to right hip, Right hip pain, Fall Disposition: ADMITTED IP TO THIS [facility] Condition: Good Referrals: Bill Sainz DO [Primary Care Provider] - 1-2 days
--- NOTE | 2019-06-27 18:25 | XR ---
EXAMINATION TYPE: XR Hip Limited RT DATE OF EXAM: 06/27/2019 COMPARISON: NONE HISTORY: Right hip pain TECHNIQUE: Single view FINDINGS: The hip joint space is fairly normal. There is a 3.5 cm area of destruction involving the l jose trochanter of the right femur. There is probably to centimeter a bulge in chip fracture of the lesser trochanter as well. There is no dislocation. There is extensive vascular calcification. IMPRESSION: Destructive lesion in the lesser trochanter of the right femur could relate to tumor. Fol low-up is recommended.
--- NOTE | 2019-06-27 18:28 | XR ---
EXAMINATION TYPE: XR lumbar spine 2 or 3V DATE OF EXAM: 06/27/2019 COMPARISON: NONE HISTORY: Back pain TECHNIQUE: 3 views FINDINGS: There is mild lumbar levoscoliosis. There is extensive calcification in the abdominal aorta . Lumbar vertebra show no significant disc space narrowing except at L1-2 with spurring of the endpla brody. The posterior elements are intact. I see no compression fracture. Sacroiliac joints are intact. IMPRESSION: There are some spondylotic changes mainly at L1 2. Atheromatous aorta. No fracture seen.
[2019-06-27] MEDS ORDERED: MORPHINE SULFATE 4 MG/ML SYRINGE IVP STA (19:54)
--- NOTE | 2019-06-27 20:03 | CT ---
EXAMINATION TYPE: CT hip RT wo con DATE OF EXAM: 06/27/2019 COMPARISON: HISTORY: RT hip pain, bone lesion found on xray. PT BTK amputee, due to pain not able to lay complete ly flat CT DLP: 803.6 mGycm Automated exposure control for dose reduction was used. Multiple axial sections were obtained from the iliac crest to the mid shaft of the femur without cont rast. There is a 3.5 cm area of bone destruction involving the right iliac bone. There is cortical destruct ion on the anterior and posterior surfaces. I see no soft tissue mass. There are small lytic areas in volving the right acetabulum. There is 10 mm lytic area in the right ischium on the inferior surface. There is 3.5 x 2 cm area of ostial lysis involving the lesser trochanter of the right femur. There i s 3 cm area of soft tissue mass at the area of bone destruction. There is an avulsion large chip frac ture of the lesser trochanter. There is superior position of the chip fracture approximate 2.5 cm. Th ere is no dislocation. There is 2 cm osteolytic lesion with soft tissue mass involving the pubic symp hysis on both sides of the joint. There is no evidence of free fluid in the pelvis. There is extensive atherosclerotic vascular calcifi cation. The prostate is enlarged. IMPRESSION: Multiple areas of osteolytic changes consistent with metastatic disease or multiple myeloma. There is pathologic fracture of the lesser trochanter of the right femur.
[2019-06-27] MEDS ORDERED: SODIUM CHLORIDE 0.9% 1,000 ML IV ONE (21:03)
[2019-06-27] MEDS ORDERED: ACETAMINOPHEN TAB 325 MG TAB PO PRN (21:40)
[2019-06-27] MEDS ORDERED: DOCUSATE 100 MG CAP PO PRN (21:40)
[2019-06-27] MEDS ORDERED: ONDANSETRON 4 MG/2 ML VIAL IVP PRN (21:40)
[2019-06-27] MEDS ORDERED: NALOXONE 0.4 MG/ML 1 ML VIAL IV PRN (21:40)
[2019-06-27] MEDS ORDERED: Acetaminophen-Codeine 300-30mg TAB PO PRN (21:56)
[2019-06-27 22:47] LABS: Basophils # (A) 0.1 k/uL (0-0.2); Basophils % (A) 1 %; Eosinophils # (A) 0.1 k/uL (0-0.7); Eosinophils % (A) 2 %; HCT 38.2 % (39.0-53.0); HGB 12.3 gm/dL (13.0-17.5); Hypochromasia Slight; Lymphocytes # (A) 1.9 k/uL (1.0-4.8); Lymphocytes % (A) 20 %; MCH 26.6 pg (25.0-35.0); MCHC 32.3 g/dL (31.0-37.0); MCV 82.3 fL (80.0-100.0); Mean Platelet Volume 9.4; Monocytes # (A) 0.6 k/uL (0-1.0); Monocytes % (A) 7 %; Neutrophils # (A) 6.6 k/uL (1.3-7.7); Neutrophils % (A) 70 %; Platelet Count 286 k/uL (150-450); RBC 4.64 m/uL (4.30-5.90); WBC 9.5 k/uL (3.8-10.6)
[2019-06-27 22:51] LABS: Prothrombin Time 10.6 sec (9.0-12.0)
[2019-06-27 23:07] LABS: ALT 12 U/L (4-49); AST 22 U/L (17-59); African American GFR (CKD) >90 (>60 ml/min/1.73 sqM); Albumin 4.2 g/dL (3.5-5.0); Alkaline Phosphatase 99 U/L (38-126); Anion Gap 12 mmol/L; Blood Urea Nitrogen 17 mg/dL (9-20); Calcium 10.5 mg/dL (8.4-10.2); Carbon Dioxide 25 mmol/L (22-30); Chloride 102 mmol/L (98-107); Glucose 129 mg/dL (74-99); Magnesium 1.5 mg/dL (1.6-2.3); Non-African American GFR(CKD) 80 (>60 ml/min/1.73 sqM); Potassium 4.4 mmol/L (3.5-5.1); Sodium 139 mmol/L (137-145); Total Bilirubin 0.5 mg/dL (0.2-1.3); Total Protein 7.2 g/dL (6.3-8.2)
--- NOTE | 2019-06-27 23:50 | P.HPIM ---
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 He does have a prosthetic that he normally walks with. Patient states he did have a fall about 2 months ago wh ere he fell backward onto his butt and back. Patient states he was ambulating fine with the use of his right lower extremity prosthetic He's had no other falls since. Patient states about 3 days ago he started having right buttock pain that radiates into his right upper thigh. Patient states his pain increases anytime he moves his leg or tries to walk with his prosthesis. Patient takes Tylenol for his pain and occasionally takes Tylenol 3's. Patient received 100 mg of fentanyl and the EMS prior to arrival. He is currently rates his pain a 9/10. He denies fever, chills, back pain, abdominal pain, any other complaints at this time. The patient denies any change in appetite, denies weight loss. In the ER the patient had imaging workup x-rays of the hip and spine destruction the less trochanter of the right femur could be related to tumor. Subsequent right hip CT with a pathological fracture of the lesser trochanter of the right femur. The patient was given morphine and IV fluids and recommended for admission for pain control Review of Systems Pertinent positives per HPI all other review of systems are otherwise negative Past Medical History Past Medical History: Heart Failure, CVA/TIA, Diabetes Mellitus, Hyperlipidemia, Hypertension, Vascular Disorder Additional Past Medical History / Comment(s): left arm deficit History of Any Multi-Drug Resistant Organisms: None Reported Past Surgical History: Heart Catheterization With Stent Additional Past Surgical History / Comment(s): right leg below the knee amputation, main artery replaced in heart, carotid replaced Date of Last Stent Placement:: 45 years ago Past Psychological History: No Psychological Hx Reported Smoking Status: Former smoker Past Alcohol Use History: None Reported Past Drug Use History: Marijuana Medications and Allergies Home Medications Medication Instructions Recorded Confirmed Type Acetaminophen-Codeine 300-30mg 1 tab PO BID PRN 09/14/18 06/27/19 History [Tylenol w/codeine #3] Aspirin 325 mg PO DAILY 09/14/18 06/27/19 History Clopidogrel Bisulfate [Plavix] 75 mg PO DAILY 09/14/18 06/27/19 History Ferrous Sulfate [Feosol] 325 mg PO BID #0 09/18/18 06/27/19 Rx Cholecalciferol [Vitamin D3 (25 1,000 unit PO BID 06/27/19 06/27/19 History Mcg = 1000 Iu)] Metoprolol Tartrate [Lopressor] 25 mg PO BID 06/27/19 06/27/19 History amLODIPine [Norvasc] 10 mg PO DAILY 06/27/19 06/27/19 History metFORMIN HCL [Glucophage] 500 mg PO BID 06/27/19 06/27/19 History Allergies Allergy/AdvReac Type Severity Reaction Status Date / Time Riaczpe-Huv-Drg Reductase AdvReac Confusion/muscle Verified 06/27/19 21:06 Inhibitor pain Physical Exam Vitals: Vital Signs Temp Pulse Resp BP Pulse Ox 06/27/19 19:01 98.2 F 71 17 150/77 98 06/27/19 17:14 98.8 F 69 18 158/74 98 Intake and Output 06/27/19 06/27/19 06/27/19 06:59 14:59 22:59 Other: Weight 88.451 kg Constitutional: No acute distress, conversant, pleasant Eyes: Anicteric sclerae, moist conjunctiva, no lid-lag, PERRLA ENMT: NC/AT,Oropharynx clear, no erythema, exudates Neck:Supple, FROM, no masses, or JVD, No carotid bruits; No thyromegaly Lungs: Clear to auscultation, Clear to percussion, Normal respiratory effort, no accessory muscle use Cardiovascular: Heart regular in rate and rhythm, No murmurs, gallops, or rubs no peripheral edema Abdominal: Soft Nontender, nom distended, no guarding, no rebound or rigidity, Normoactive bowel sounds No hepatomegaly, No splenomegaly, No palpable mass No abdominal wall hernia noted Skin: Normal temperature, tone, texture, turgor, No induration No subcutaneous nodules, No rash, lesions, No ulcers Extremities:No digital cyanosis No clubbing, Pedal pulses intact and unable to ambulate due to missing prosthesis and right knee and hip pain worse with flexion, right BKA Psychiatric: Alert and oriented to person, place and time, Appropriate affect Intact judgement Neuro: Muscles Strength 5/5 in all 4 extremities, Sensation to light touch grossly present throughout, Cranial nerves II-XII grossly intact. No focal sensory deficits Results CBC & Chem 7: 06/27/19 21:42 06/27/19 21:42 Assessment and Plan Assessment: Pathological fracture of Right femur Right hip/thigh pain Type 2 diabetes Essential hypertension PVD with history of amputation CHF of unknown type Hyperlipidemia Plan: The patient is admitted anticipated greater than 2 midnight stay with pathological fracture of the right femur with osteolytic bone lesions suspicious for multiple myeloma seen on CT after presenting with intractable right hip and thigh pain. The plan is to control his pain is currently on morphine and consult orthopedics and oncology for further recommendations, will order CBC, CMP, his chronic medications are restarted, initiate Accu-Cheks with correctional scale insulin coverage and continue to follow his clinical course CODE STATUS: DO NOT RESUSCITATE. Discussed care with : Patient and his Anticipated discharge : 2-[address]: Home Prophylaxis : heparin
--- NOTE | 2019-06-27 23:57 | P.PN ---
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 The patient reports that he's had a full life, and that after his BKA a year ago his quality of life has diminished remarkably as he was very active prior to having his BKA and he reports that he's noted a gradual decline of his health although he is able to do most of his ADLs unassisted. Patient reported that he would not want anything done if his heart were to stop, meaning that he would not want any CPR/chest compressions/defibrillation or intubation. The patient's Hyacinth is present and is agreeable to the patient's wishes CODE STATUS: DO NOT RESUSCITATE ACP Discussion timing: Approximately 17 minutes
[2019-06-28] MEDS: HEPARIN SODIUM,PORCINE 5,000 UNIT/ML 1 ML VIAL SQ SCH ×3 (01:34→17:21)
[2019-06-28 02:02] LABS: Glucose,Whole Blood 152 mg/dL (75-99)
[2019-06-28] MEDS: MORPHINE SULFATE 4 MG/ML SYRINGE IVP PRN ×4 (02:48→17:36)
[2019-06-28 06:39] LABS: Basophils % (A) 1 %; Eosinophils # (A) 0.1 k/uL (0-0.7); Eosinophils % (A) 2 %; HCT 36.8 % (39.0-53.0); Hypochromasia Slight; Lymphocytes # (A) 2.2 k/uL (1.0-4.8); Lymphocytes % (A) 26 %; MCH 26.7 pg (25.0-35.0); MCHC 32.5 g/dL (31.0-37.0); Mean Platelet Volume 9.4; Monocytes # (A) 0.6 k/uL (0-1.0); Monocytes % (A) 7 %; Neutrophils # (A) 5.4 k/uL (1.3-7.7); Neutrophils % (A) 64 %; Platelet Count 288 k/uL (150-450); RBC 4.49 m/uL (4.30-5.90); RDW 12.6 % (11.5-15.5); WBC 8.5 k/uL (3.8-10.6)
[2019-06-28 06:42] LABS: INR 1.1 (<1.2); Prothrombin Time 11.3 sec (9.0-12.0)
[2019-06-28 06:50] LABS: Calcium 10.3 mg/dL (8.4-10.2); Potassium 4.4 mmol/L (3.5-5.1); Total Bilirubin 0.7 mg/dL (0.2-1.3)
[2019-06-28 07:53] LABS: Glucose,Whole Blood 188 mg/dL (75-99)
[2019-06-28] MEDS: INSULIN ASPART (NovoLOG) 100 UNIT/ML VIAL SQ SCH ×2 (08:09→12:09)
[2019-06-28 08:29] VITALS: RESP 16
[2019-06-28] MEDS ORDERED: CHOLECALCIFEROL 1,000 UNIT TAB PO SCH (09:00)
[2019-06-28] MEDS ORDERED: METOPROLOL TARTRATE 25 MG TAB PO SCH (09:00)
[2019-06-28] MEDS ORDERED: amLODIPine 10 MG TAB PO SCH (09:00)
[2019-06-28] MEDS ORDERED: FERROUS SULFATE 325 MG TAB PO SCH (09:00)
--- NOTE | 2019-06-28 10:33 | XR ---
EXAMINATION TYPE: XR chest 1V DATE OF EXAM: 06/28/2019 COMPARISON: NONE HISTORY: Fever TECHNIQUE: Single frontal view of the chest is obtained. FINDINGS: No pneumothorax or pleural effusion. No overt failure. Question a rib deformity involving the mid left rib cage laterally. Hyperinflation noted. Subsegmental changes at both lung bases. IMPRESSION: 1. Basilar atelectasis favored over pneumonia correlate clinically. 2. Correlate for COPD
--- NOTE | 2019-06-28 10:51 | P.CNOR ---
History of Present Illness - [facility] Consult date: 06/28/19 Consult reason: fracture (Pathologic right femur/hip fracture ) History of present illness: Patient is a 69-year-old male presenting to the emergency department via EMS for complaints of right leg pain that has been increasing over the past 3 days. 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 He does have a prosthetic that he normally walks with. Patient states he did have a fall about 2 months ago where he fell backward onto his butt and back. Patient states he was ambulating fine after that. He's had no other falls since. Patient states about 3 days ago he started having right gluteus pain that radiates into his right upper thigh. Patient states his pain increases anytime he moves his leg or tries to walk with his prosthetic. Patient takes Tylenol for his pain and occasionally takes Tylenol 3's. Patient received 100 mg of fentanyl and the EMS prior to arrival. He is currently pain-free. He denies fever, chills, back pain, abdominal pain, any other complaints at this time. Upon arrival to ER, his vital signs are stable. He is found to have a pathologic lesion about the proximal right femur with fracture of the lesser trochanter. We're consulted for orthopedic evaluation. Past Medical History Past Medical History: Heart Failure, CVA/TIA, Diabetes Mellitus, Hyperlipidemia, Hypertension, Vascular Disorder Additional Past Medical History / Comment(s): left arm deficit History of Any Multi-Drug Resistant Organisms: None Reported Past Surgical History: Heart Catheterization With Stent Additional Past Surgical History / Comment(s): right leg below the knee ampu tation, main artery replaced in heart, carotid replaced Date of Last Stent Placement:: 45 years ago Past Psychological History: No Psychological Hx Reported Smoking Status: Former smoker Past Alcohol Use History: None Reported Past Drug Use History: Marijuana Medications and Allergies Home Medications Medication Instructions Recorded Confirmed Type Acetaminophen-Codeine 300-30mg 1 tab PO BID PRN 09/14/18 06/27/19 History [Tylenol w/codeine #3] Aspirin 325 mg PO DAILY 09/14/18 06/27/19 History Clopidogrel Bisulfate [Plavix] 75 mg PO DAILY 09/14/18 06/27/19 History Ferrous Sulfate [Feosol] 325 mg PO BID #0 04/01/19 01/08/20 Rx Cholecalciferol [Vitamin D3 (25 1,000 unit PO BID 06/27/19 06/27/19 History Mcg = 1000 Iu)] Metoprolol Tartrate [Lopressor] 25 mg PO BID 06/27/19 06/27/19 History amLODIPine [Norvasc] 10 mg PO DAILY 06/27/19 06/27/19 History metFORMIN HCL [Glucophage] 500 mg PO BID 06/27/19 06/27/19 History Allergies Allergy/AdvReac Type Severity Reaction Status Date / Time Ulojqkq-Tys-Lvk Reductase AdvReac Confusion/muscle Verified 06/27/19 21:06 Inhibitor pain Physical Examination This is a pleasant 69-year-old male in no acute distress. He is alert and oriented 3. Exam of the lower extremity reveals evidence of ilvzd-orx-homp of dictation. Skin is intact. He has mild pain with motion of the right hip. His knee motion is fairly normal. Exam of the left lower extremity is unremarkable. Results X-ray and computed tomography scan of the pelvis and right hip reveal a lesion to the proximal femur which is eroding through the medial cortex. The lesser trochanter is fractured and displaced. There are lesions noted in the ilium and pubic symphysis bilaterally. - Labs Labs: Abnormal Lab Results - Last 24 Hours (Table) 06/27/19 06/27/19 06/28/19 Range/Units 21:42 21:42 02:00 Hgb 12.3 L (13.0-17.5) gm/dL Hct 38.2 L (39.0-53.0) % Glucose 129 H (74-99) mg/dL POC Glucose (mg/dL) 152 H (75-99) mg/dL Calcium 10.5 H (8.4-10.2) mg/dL Magnesium 1.5 L (1.6-2.3) mg/dL 06/28/19 06/28/19 06/28/19 Range/Units 06:05 06:05 07:51 Hgb 12.0 L (13.0-17.5) gm/dL Hct 36.8 L (39.0-53.0) % Glucose 128 H (74-99) mg/dL POC Glucose (mg/dL) 188 H (75-99) mg/dL Calcium 10.3 H (8.4-10.2) mg/dL Magnesium (1.6-2.3) mg/dL H & H 06/27/19 06/28/19 Range/Units 21:42 06:05 Hgb 12.3 L 12.0 L (13.0-17.5) gm/dL Hct 38.2 L 36.8 L (39.0-53.0) % Coagulation 06/27/19 06/28/19 Range/Units 21:43 06:05 INR 1.0 1.1 (<1.2) Result Diagrams: 06/28/19 06:05 06/28/19 06:05 Assessment and Plan (1) Type 1 diabetes Current Visit: Yes Status: Acute Code(s): E10.9 - TYPE 1 DIABETES MELLITUS WITHOUT COMPLICATIONS SNOMED Code(s): 16186673 (2) Closed right hip fracture Current Visit: Yes Status: Acute Code(s): S72.001A - FRACTURE OF UNSP PART OF NECK OF RIGHT FEMUR, INIT SNOMED Code(s): 802323222 (3) Inability to ambulate due to right hip Current Visit: Yes Status: Acute Code(s): R26.2 - DIFFICULTY IN WALKING, NOT ELSEWHERE CLASSIFIED SNOMED Code(s): 489094207 (4) Osteolytic lesion Current Visit: Yes Status: Acute Code(s): M89.50 - OSTEOLYSIS, UNSPECIFIED SITE SNOMED Code(s): 146598368 Plan: The clinical and x-ray findings are discussed with the patient. I have reviewed the case with Dr. Guzman. We currently do not have the device to stabilize the leg intraoperatively which would accommodate for his uumhe-eom-sbnh of dictation. With his unknown history of cancer it is recommended that he be transferred to a tertiary care center for definitive orthopedic oncology evaluation and treatment.
[2019-06-28 11:32] LABS: Glucose,Whole Blood 149 mg/dL (75-99)
[2019-06-28] MEDS ORDERED: HYDROmorphone 0.5 MG/0.5 ML SYRINGE IVP STA (14:01)
--- NOTE | 2019-06-28 14:09 | NM ---
EXAMINATION TYPE: NM bone/joint multiple DATE OF EXAM: 06/28/2019 COMPARISON: CT scan 06/27/2019 HISTORY: Abnormal CT scan TECHNIQUE: After the intravenous administration of 25.8 mCi Tc 99m MDP. Immediate images and 3.5 ho urs post injection images acquired. Images of the skull base to the pubic symphysis FINDINGS: Abnormal uptake involving the shoulders likely is degenerative or post arthritic. Photopenic defect i nvolving the lesser trochanter corresponds to the abnormal CT scan. Reduced uptake involving the right iliac bone corresponds to the abnormal CT findings. Abnormal uptake at the distal margin of the right lower extremity amputation may be postsurgical shou ld be correlated clinically. Abnormal findings seen by CT involving the pubic symphysis obscured by radiotracer within the bladder . Abnormal uptake involving the right shoulder typical degenerative change. Abnormal appearance of the left rib cage seen by recent CT CT scan demonstrates no definite bone scan abnormality. Nonspecific abnormal uptake involving the fibula or lateral margin of the tibia on the left. IMPRESSION: 1. Abnormal uptake corresponds the CT abnormalities involving the right femur and pelvis compatible w ith malignancy. 2. Nonspecific uptake involving the proximal left fibula or lateral margin of the tibia.
--- NOTE | 2019-06-28 15:11 | P.DS ---
Providers Date of admission: 06/27/19 21:03 Expected date of discharge: 06/28/19 Attending physician: Indio Garcia MD Consults: 06/27/19 21:03 Consult Physician Routine Consulting Provider: Shelton Guzman Consult Reason/Comments: pathologicfx Do you want consulting provider notified?: Yes 06/27/19 21:55 Consult Physician Routine Consulting Provider: Norberto Springer Consult Reason/Comments: osteolytic bone lesions Do you want consulting provider notified?: Yes Primary care physician: [facility] Course: Discharge Diagnosis: Pathologic fracture of the right femur, suspect multiple myeloma, with intractable pain Hypercalcemia, mild DM 2 on oral medication HTN HLD PVD s/p BKA ([place] with vascular surgery) Compensated CHF, unknown type 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 He arrived via EMS. In the ER he underwent an extensive evaluation. His initial vital signs are within normal limits. Initial laboratory analysis revealed calcium of 10.5, magnesium 1.5. Albumin was normal at 4.2. X-ray of the hip revealed destructive lesion in the left trochanter of the right femur which could relate to tumor, lumbar spine x-ray showed spondylitic changes at L1-2, patient went on to have a CT of the hip which showed multiple areas of osteolytic changes consistent with metastatic disease or multiple myeloma. There is a pathologic fracture of the lesser trochanter of the right femur, 3.5 cm area of bone destruction in the right iliac bone, small lytic areas involving the right acet abulum, and a 3.5 x 2 cm area of ostial lysis involving the lesser trochanter of the right femur there is also a 3 cm area of soft tissue mass at the area of prone distraction and an avulsion chip fracture at the lesser trochanter there is a 2 cm ostial lytic lesion within the soft tissue mass at the pubic symphysis on both sides the joint. Patient was admitted for orthopedic evaluation. He was seen by our orthopedic surgeons who felt that he would be more appropriately cared for at a center with orthopedic oncology and recommended transfer. He was seen by oncology team. He underwent a nuclear medicine bone scan which was not available at the time I called for transfer but ended up demonstrating CT abnormalities involving the right femur and pelvis compatible with malignancy. He did develop a slight fever of 100.2. CXR was consistent with atelectasis, UA was ordered but is not yet available. He denies any difficulty urinating, burning, or increased urination. He also denies any chest pain, cough, or shortness of breath. Suspect that his low-grade fever is either secondary to atelectasis and his underlying malignancy. Patient is willing to go to [facility] and (ortho onc) has graciously accepted his admission. Free And lambda light chains were sent out via serum, immunofixation, electrophoresis, and PSA were all ordered and are pending at the time of disch arge. Patient seen and examined at bedside. Complains of pain in right hip worse with movement, Morphine is not helping, Denies chest pain, SOB, nausea, vomiting or diarrhea. Vital signs reviewed and stable. General: non toxic, no distress, appears at stated age Derm: warm, dry Head: atraumatic, normocephalic, symmetric Eyes: EOMI, no lid lag, anicteric sclera Mouth: no lip lesion, mucus membranes moist Cardiovascular: S1S2 reg, no murmur, positive posterior tibial pulse bilateral, Lungs: CTA bilateral, no rhonchi, no rales , no accessory muscle use Abdominal: soft, nontender to palpation, no guarding, no appreciable organomegaly Ext: no gross muscle atrophy, no edema, no contractures Neuro: CN II-XI grossly intact, no focal neuro deficits Psych: Alert, oriented, appropriate affect A total of 35 minutes of time were spent preparing this complex discharge summary . Patient Condition at Discharge: Fair Plan - Discharge Summary New Discharge Prescriptions: No Action Acetaminophen-Codeine 300-30mg [Tylenol w/codeine #3] 1 tab PO BID PRN PRN Reason: Pain Clopidogrel Bisulfate [Plavix] 75 mg PO DAILY Aspirin 325 mg PO DAILY Ferrous Sulfate [Feosol] 325 mg PO BID #0 amLODIPine [Norvasc] 10 mg PO DAILY Cholecalciferol [Vitamin D3 (25 Mcg = 1000 Iu)] 1,000 unit PO BID metFORMIN HCL [Glucophage] 500 mg PO BID Metoprolol Tartrate [Lopressor] 25 mg PO BID Discharge Medication List Acetaminophen-Codeine 300-30mg [Tylenol w/codeine #3] 1 tab PO BID PRN 09/14/18 [History] Aspirin 325 mg PO DAILY 09/14/18 [History] Clopidogrel Bisulfate [Plavix] 75 mg PO DAILY 09/14/18 [History] Ferrous Sulfate [Feosol] 325 mg PO BID #0 09/18/18 [Rx] Cholecalciferol [Vitamin D3 (25 Mcg = 1000 Iu)] 1,000 unit PO BID 06/27/19 [History] Metoprolol Tartrate [Lopressor] 25 mg PO BID 06/27/19 [History] amLODIPine [Norvasc] 10 mg PO DAILY 06/27/19 [History] metFORMIN HCL [Glucophage] 500 mg PO BID 06/27/19 [History] Follow up Appointment(s)/Referral(s): Bill Sainz DO [Primary Care Provider] - 1-2 days
[2019-06-28 16:00] VITALS: BP 159/88; TEMP 99.2
[2019-06-28 16:03] VITALS: PULSE 90
[2019-06-28 17:34] LABS: Protein, Total 6.2 g/dL (6.2-8.2)
[2019-06-29 10:56] LABS: Free Kappa Lt Chain Qnt, Serum 1.69 mg/dL (0.33-1.94)
[2019-06-29 14:49] LABS: Albumin 3.22 g/dL (3.80-4.90); Gamma Globulin 0.61 g/dL (0.70-1.50)
== END 2019-06-28 16:56 | disposition short-term general hospital (02) | DRG 543 ==
LOC: EC 17:11 → 4SSUR 21:03
PROVIDERS: ADMIT Family Medicine; ATTEND Family Medicine
DX: M84.551A Pathological fracture in neoplastic disease, right femur, initial encounter for fracture (principal); C90.00 Multiple myeloma not having achieved remission; I69.354 Hemiplegia and hemiparesis following cerebral infarction affecting left non-dominant side; J98.11 Atelectasis; E10.51 Type 1 diabetes mellitus with diabetic peripheral angiopathy without gangrene; E78.5 Hyperlipidemia, unspecified; E83.52 Hypercalcemia; I11.0 Hypertensive heart disease with heart failure; I25.10 Atherosclerotic heart disease of native coronary artery without angina pectoris; I50.9 Heart failure, unspecified; Z66 Do not resuscitate; Z79.02 Long term (current) use of antithrombotics/antiplatelets; Z79.4 Long term (current) use of insulin; Z79.82 Long term (current) use of aspirin; Z79.899 Other long term (current) drug therapy; Z87.891 Personal history of nicotine dependence; Z89.511 Acquired absence of right leg below knee; Z95.5 Presence of coronary angioplasty implant and graft; Z88.8 Allergy status to other drugs, medicaments and biological substances
CPT/HCPCS: 71045; 72100; 73501; 78305; 80053; 83735; 83883; 84165; 85025; 85610; 86334; 96361; 96372; 96374; 96375; 96376; 99285

== ENCOUNTER 2019-07-30 18:06 | Inpatient (IN) | payer MEDICARE ==
[2019-07-30] MEDS ORDERED: SODIUM CHLORIDE 0.9% 500 ML 500 ML IV ONE (19:00)
[2019-07-30] MEDS ORDERED: HYDROmorphone 1 MG/ML 1 ML SYRINGE IVP STA ×2 (19:21→20:14)
[2019-07-30 19:40] LABS: Basophils % (A) 0 %; Eosinophils # (A) 0.2 k/uL (0-0.7); Eosinophils % (A) 2 %; HCT 28.9 % (39.0-53.0); HGB 8.7 gm/dL (13.0-17.5); Hypochromasia Marked; Lymphocytes # (A) 2.1 k/uL (1.0-4.8); Lymphocytes % (A) 23 %; MCH 23.5 pg (25.0-35.0); MCV 78.3 fL (80.0-100.0); Mean Platelet Volume 9.3; Monocytes # (A) 0.5 k/uL (0-1.0); Monocytes % (A) 5 %; Neutrophils # (A) 6.4 k/uL (1.3-7.7); Neutrophils % (A) 68 %; Platelet Count 354 k/uL (150-450); RBC 3.69 m/uL (4.30-5.90); RDW 14.5 % (11.5-15.5); WBC 9.4 k/uL (3.8-10.6)
--- NOTE | 2019-07-30 19:43 | ED ---
General Adult HPI - General Chief complaint: Altered Mental Status Stated complaint: sent by [facility]/consusion/calcium low Time Seen by Provider: 07/30/19 18:51 Source: patient, family, EMS, RN notes reviewed, old records reviewed Mode of arrival: EMS Limitations: altered mental status - History of Present Illness Initial comments: 69-year-old male presenting for evaluation of worsening confusion over the past one month. Patient was diagnosed with a pathological fracture and underwent operative repair at [facility]. He had been initiated workup for multiple myeloma. He had hypercalcemia and anemia which had been doing washes an outpatient. He's had UTI which she's been on antibiotics for. No fever. No cough. No vomiting. Patient denies headache or vision changes. Denies focal numbness or weakness. He does complain of generalized pain which she has had for several months. - Related Data Home Medications Medication Instructions Recorded Confirmed Acetaminophen-Codeine 300-30mg 1 tab PO BID PRN 09/14/18 06/27/19 [Tylenol w/codeine #3] Aspirin 325 mg PO DAILY 09/14/18 06/27/19 Clopidogrel Bisulfate [Plavix] 75 mg PO DAILY 09/14/18 06/27/19 Cholecalciferol [Vitamin D3 (25 1,000 unit PO BID 06/27/19 06/27/19 Mcg = 1000 Iu)] Metoprolol Tartrate [Lopressor] 25 mg PO BID 06/27/19 06/27/19 amLODIPine [Norvasc] 10 mg PO DAILY 06/27/19 06/27/19 metFORMIN HCL [Glucophage] 500 mg PO BID 06/27/19 06/27/19 Previous Rx's Medication Instructions Recorded Ferrous Sulfate [Feosol] 325 mg PO BID #0 09/18/18 Allergies Allergy/AdvReac Type Severity Reaction Status Date / Time Wifgcso-Sly-Cmr Reductase AdvReac Confusion/muscle Verified 06/27/19 21:06 Inhibitor pain Review of Systems ROS Statement: Those systems with pertinent positive or pertinent negative responses have been documented in the HPI. ROS Other: All systems not noted in ROS Statement are negative. Past Medical History Past Medical History: Coronary Artery Disease (CAD), Cancer, Heart Failure, CVA/TIA, Diabetes Mellitus, Hyperlipidemia, Hypertension, Vascular Disorder Additional Past Medical History / Comment(s): PVD, R BKA, NIDDM type II, occasional neuropathy bilateral hands, CVA with left arm weakness, lower GI bleed with acute blood loss anemia/gastritis/duodenitis. Bone cancer he got diag nosed on 06/28/2019 History of Any Multi-Drug Resistant Organisms: None Reported Past Surgical History: Heart Catheterization With Stent Additional Past Surgical History / Comment(s): right leg below the knee amputation, Robotic hear surgery with artery replaced, bilateral caratid endartectomies, EGD, colonoscopy Additional Past Anesthesia/Blood Transfusion Reaction / Comment(s): Pt woke up after heart surgery fighting. Date of Last Stent Placement:: 30 years ago at [facility] Past Psychological History: No Psychological Hx Reported Smoking Status: Former smoker Past Alcohol Use History: None Reported Past Drug Use History: None Reported - Past Family History Father Family Medical History: Liver Disease Additional Family Medical History / Comment(s): Father was an alcoholic. He had cirrhosis. Mother Family Medical History: Cancer Additional Family Medical History / Comment(s): Mother from cancer at the age of 60 yrs but pt does not know type of cancer. General Exam Limitations: altered mental status General appearance: alert, in no apparent distress Head exam: Present: atraumatic, normocephalic Eye exam: Present: normal appearance, PERRL ENT exam: Present: mucous membranes dry Neck exam: Present: normal inspection. Absent: tenderness, meningismus Respiratory exam: Present: normal lung sounds bilaterally. Absent: respiratory distress, wheezes Cardiovascular Exam: Present: regular rate, normal rhythm GI/Abdominal exam: Present: soft. Absent: distended, tenderness Extremities exam: Present: other (Right BKA) Neurological exam: Present: alert. Absent: oriented X3, motor sensory deficit Psychiatric exam: Present: normal affect, normal mood Skin exam: Present: warm, dry. Absent: cyanosis, diaphoretic Course Vital Signs 07/30/19 07/30/19 18:23 19:30 Temperature 98.3 F Pulse Rate 87 90 Respiratory 16 20 Rate Blood Pressure 165/77 166/81 O2 Sat by Pulse 97 98 Oximetry EKG Findings - EKG Comments: EKG Findings:: EKG: Sinus rhythm with premature atrial complexes, LVH, no ST segment elevation, rate of 96, NH interval 152, QRS duration 82, QTC 432 Medical Decision Making - Medical Decision Making 69-year-old presenting for one month of worsening confusion. Patient has a n onfocal exam, vital signs are stable. He has had CT which is negative for intracranial hemorrhage or mass effect. Chest x-ray negative for focal pneumonia. Hemoglobin 8.7 which is stable with recent half-way to elevate 0.7. He has mild electrolyte abnormality is clearing hyponatremia and mild hypercalcemia 10.9. Urinalysis is pending. He's experiencing significant bone pain in addition to his episodes of confusion. He will be admitted for IV hydration, antibiotics, which is a continuation antibiotics for recurrent urinary tract infection, urine culture and urinalysis pending. Patient's will be provided pain control. Case discussed with Dr. Engel who will admit. - Lab Data Result diagrams: 07/30/19 19:26 07/30/19 19:26 Lab Results 07/30/19 07/30/19 07/30/19 Range/Units 19:26 19:26 19:26 WBC 9.4 (3.8-10.6) k/uL RBC 3.69 L (4.30-5.90) m/uL Hgb 8.7 L (13.0-17.5) gm/dL Hct 28.9 L (39.0-53.0) % MCV 78.3 L (80.0-100.0) fL MCH 23.5 L (25.0-35.0) pg MCHC 30.0 L (31.0-37.0) g/dL RDW 14.5 (11.5-15.5) % Plt Count 354 (150-450) k/uL Neutrophils % 68 % Lymphocytes % 23 % Monocytes % 5 % Eosinophils % 2 % Basophils % 0 % Neutrophils # 6.4 (1.3-7.7) k/uL Lymphocytes # 2.1 (1.0-4.8) k/uL Monocytes # 0.5 (0-1.0) k/uL Eosinophils # 0.2 (0-0.7) k/uL Basophils # 0.0 (0-0.2) k/uL Hypochromasia Marked PT 11.6 (9.0-12.0) sec INR 1.1 (<1.2) APTT 27.3 (22.0-30.0) sec Sodium 135 L (137-145) mmol/L Potassium 3.9 (3.5-5.1) mmol/L Chloride 95 L (98-107) mmol/L Carbon Dioxide 31 H (22-30) mmol/L Anion Gap 9 mmol/L BUN 21 H (9-20) mg/dL Creatinine 0.90 (0.66-1.25) mg/dL Est GFR (CKD-EPI)AfAm >90 (>60 ml/min/1.73 sqM) Est GFR (CKD-EPI)NonAf 87 (>60 ml/min/1.73 sqM) Glucose 132 H (74-99) mg/dL Plasma Lactic Acid Enrique (0.7-2.0) mmol/L Calcium 10.9 H (8.4-10.2) mg/dL Total Bilirubin 0.6 (0.2-1.3) mg/dL AST 57 (17-59) U/L ALT 31 (4-49) U/L Alkaline Phosphatase 132 H (38-126) U/L Total Protein 6.8 (6.3-8.2) g/dL Albumin 3.8 (3.5-5.0) g/dL 07/30/19 Range/Units 19:26 WBC (3.8-10.6) k/uL RBC (4.30-5.90) m/uL Hgb (13.0-17.5) gm/dL Hct (39.0-53.0) % MCV (80.0-100.0) fL MCH (25.0-35.0) pg MCHC (31.0-37.0) g/dL RDW (11.5-15.5) % Plt Count (150-450) k/uL Neutrophils % % Lymphocytes % % Monocytes % % Eosinophils % % Basophils % % Neutrophils # (1.3-7.7) k/uL Lymphocytes # (1.0-4.8) k/uL Monocytes # (0-1.0) k/uL Eosinophils # (0-0.7) k/uL Basophils # (0-0.2) k/uL Hypochromasia PT (9.0-12.0) sec INR (<1.2) APTT (22.0-30.0) sec Sodium (137-145) mmol/L Potassium (3.5-5.1) mmol/L Chloride (98-107) mmol/L Carbon Dioxide (22-30) mmol/L Anion Gap mmol/L BUN (9-20) mg/dL Creatinine (0.66-1.25) mg/dL Est GFR (CKD-EPI)AfAm (>60 ml/min/1.73 sqM) Est GFR (CKD-EPI)NonAf (>60 ml/min/1.73 sqM) Glucose (74-99) mg/dL Plasma Lactic Acid Enrique 1.2 (0.7-2.0) mmol/L Calcium (8.4-10.2) mg/dL Total Bilirubin (0.2-1.3) mg/dL AST (17-59) U/L ALT (4-49) U/L Alkaline Phosphatase (38-126) U/L Total Protein (6.3-8.2) g/dL Albumin (3.5-5.0) g/dL Disposition Clinical Impression: Altered mental status, Anemia, Osteolytic lesion, Dehydration Disposition: ADMITTED IP TO THIS [facility] Condition: Stable Is patient prescribed a controlled substance at d/c from ED?: No Referrals: Bill Sainz DO [Primary Care Provider] - 1-2 days Decision to Admit Reason: Admit from EC Decision Date: 07/30/19 Decision Time: 20:30
[2019-07-30 19:50] LABS: ALT 31 U/L (4-49); AST 57 U/L (17-59); African American GFR (CKD) >90 (>60 ml/min/1.73 sqM); Albumin 3.8 g/dL (3.5-5.0); Alkaline Phosphatase 132 U/L (38-126); Anion Gap 9 mmol/L; Blood Urea Nitrogen 21 mg/dL (9-20); Calcium 10.9 mg/dL (8.4-10.2); Carbon Dioxide 31 mmol/L (22-30); Chloride 95 mmol/L (98-107); Glucose 132 mg/dL (74-99); Non-African American GFR(CKD) 87 (>60 ml/min/1.73 sqM); Potassium 3.9 mmol/L (3.5-5.1); Sodium 135 mmol/L (137-145); Total Bilirubin 0.6 mg/dL (0.2-1.3); Total Protein 6.8 g/dL (6.3-8.2)
[2019-07-30 19:51] LABS: INR 1.1 (<1.2); Partial Thromboplastin Time 27.3 sec (22.0-30.0); Prothrombin Time 11.6 sec (9.0-12.0)
--- NOTE | 2019-07-30 19:53 | XR ---
EXAMINATION TYPE: XR chest 2V DATE OF EXAM: 07/30/2019 COMPARISON: 06/28/2019 HISTORY: Shortness of breath TECHNIQUE: Frontal and lateral views of the chest are obtained. FINDINGS: Scattered senescent parenchymal changes noted. Hyperinflation compatible with COPD. No evidence for infiltrate. No evidence for atelectasis. Heart size is stable. Mediastinal structures are stable and grossly unremarkable. No evidence for hilar prominence. Degenerative changes dorsal spine. IMPRESSION: 1. No evidence for acute pulmonary disease.
--- NOTE | 2019-07-30 20:07 | CT ---
EXAMINATION TYPE: CT brain wo con DATE OF EXAM: 07/30/2019 COMPARISON: none HISTORY: Weakness CT DLP: 1131.[address] of the brain was performed. The ventricles, basal cisterns and sulci overlying the cerebral convexities demonstrate moderate enla rgement. Small area of remote insult left frontal lobe. There is no evidence for intracranial hemorrhage or sulcal effacement. There is decreased attenuation about the periventricular white matter and deep white matter of both c erebral hemispheres, compatible with chronic small vessel ischemia. Differential diagnosis does inclu de demyelination. No mass effects are seen.No midline shift. Osseous calvarium is intact. If symptoms persist consider MRI. IMPRESSION: 1. Age related atrophic and chronic small vessel ischemic change without acute intracranial process s een at this time.
[2019-07-30] MEDS: SODIUM CHLORIDE 0.9% 1,000 ML IV SCH (20:22)
[2019-07-30] MEDS ORDERED: HYDROmorphone 0.5 MG/0.5 ML SYRINGE IVP PRN (20:27)
[2019-07-30] MEDS ORDERED: cefTRIAXone IN SWFI 1,000 MG/10 ML SYRINGE IVP STA (20:27)
[2019-07-30] MEDS ORDERED: NALOXONE 0.4 MG/ML 1 ML VIAL IV PRN (20:27)
[2019-07-30] MEDS ORDERED: LORazepam 2 MG/ML INJ IV STA (21:05)
[2019-07-30] MEDS: metFORMIN 500 MG TAB PO SCH (22:00)
[2019-07-30] MEDS: FERROUS SULFATE 325 MG TAB PO SCH (22:00)
[2019-07-30] MEDS: METOPROLOL TARTRATE 25 MG TAB PO SCH (22:00)
[2019-07-31 07:13] LABS: Glucose,Whole Blood 155 mg/dL (75-99)
[2019-07-31] MEDS: FERROUS SULFATE 325 MG TAB PO SCH ×2 (09:19→22:19)
[2019-07-31] MEDS: METOPROLOL TARTRATE 25 MG TAB PO SCH ×2 (09:19→22:19)
[2019-07-31] MEDS: amLODIPine 10 MG TAB PO SCH (09:19)
[2019-07-31] MEDS: INSULIN ASPART (NovoLOG) 100 UNIT/ML VIAL SQ SCH ×4 (09:20→21:02)
[2019-07-31] MEDS: metFORMIN 500 MG TAB PO SCH ×2 (09:20→22:20)
[2019-07-31] MEDS: ACETAMINOPHEN TAB 325 MG TAB PO PRN ×2 (09:22→17:15)
[2019-07-31 11:38] VITALS: BMI 22.7
[2019-07-31 11:55] LABS: Glucose,Whole Blood 155 mg/dL (75-99)
[2019-07-31] MEDS: SODIUM CHLORIDE 0.9% 1,000 ML IV SCH (12:24)
[2019-07-31 17:27] LABS: Glucose,Whole Blood 177 mg/dL (75-99)
[2019-07-31] MEDS ORDERED: GLYCERIN ADULT SUPPOSITORY 1 EACH RECTAL PRN (18:37)
[2019-07-31] MEDS ORDERED: DOCUSATE 100 MG CAP PO PRN (18:37)
--- NOTE | 2019-07-31 19:54 | HP ---
HISTORY AND PHYSICAL CHIEF COMPLAINT: Mental status changes and delirium. HISTORY OF PRESENT ILLNESS: This is the first known admission for this 69-year-old white male. It is believed that he was brought in from the care home. He is not a regular patient of my practice. He is unable to communicate. REVIEW OF SYSTEMS: Review of systems is not obtainable. Past medical history, family history, etc. are not obtainable. He has a right BK amputation, anemia and hypertension. No other history is available. PHYSICAL EXAMINATION: Blood pressure is 151/86 with a pulse of 83, respirations of 35. He is afebrile. In general he appears to be pale and older than his stated age. Head, ears, eyes, nose, mouth and throat are normal and carotids are normal. Neck veins are not distended. His chest is clear. Cardiac exam demonstrates sinus tachycardia. Abdomen is soft without any masses. Bowel sounds are present. Extremities demonstrate a right BK amputation. Neurologically he is confused and disoriented. ADMITTING DIAGNOSES: 1. Dementia. 2. Delirium. 3. Hypertension. 4. Anemia. 5. Right below-knee amputation. PLAN: 1. Bed rest. 2. IV fluids. 3. Workup for etiology of his delirium. 4. Discharge planning. MMODL / IJN: [id number] /
--- NOTE | 2019-07-31 20:09 | PN ---
PROGRESS NOTE CHIEF COMPLAINT: Dementia and delirium. HISTORY OF PRESENT ILLNESS: This gentleman seems stable over the night. Vital signs remained normal. There is no history available from the patient. PHYSICAL EXAMINATION: He is awake, but confused. Chest is clear. The cardiac exam is normal. Abdomen is soft. Extremities are unchanged. IMPRESSION: 1. Delirium. 2. Hypertension. 3. Anemia. 4. Right below knee amputation. PLAN: Obtain laboratory studies and review anemia as well as managing his hypertension. MMODL / IJN: [id number] /
[2019-07-31 20:48] LABS: Glucose,Whole Blood 130 mg/dL (75-99)
[2019-07-31] MEDS: MIRTAZAPINE 15 MG TAB PO SCH (22:19)
[2019-07-31] MEDS: GABAPENTIN 100 MG CAP PO SCH (22:19)
[2019-08-01] MEDS: SODIUM CHLORIDE 0.9% 1,000 ML IV SCH ×2 (00:18→12:41)
[2019-08-01 01:16] LABS: % Iron Saturation 7.56 (15.00-50.00)
[2019-08-01] MEDS: GABAPENTIN 100 MG CAP PO SCH ×3 (06:09→20:03)
[2019-08-01 07:23] LABS: Glucose,Whole Blood 147 mg/dL (75-99)
[2019-08-01] MEDS: ACETAMINOPHEN TAB 325 MG TAB PO PRN ×2 (08:34→20:02)
[2019-08-01] MEDS: metFORMIN 500 MG TAB PO SCH ×2 (08:34→20:03)
[2019-08-01] MEDS: amLODIPine 10 MG TAB PO SCH (08:34)
[2019-08-01] MEDS: CLOPIDOGREL 75 MG TAB PO SCH (08:34)
[2019-08-01] MEDS: FERROUS SULFATE 325 MG TAB PO SCH ×2 (08:34→20:03)
[2019-08-01] MEDS: METOPROLOL TARTRATE 25 MG TAB PO SCH ×2 (08:35→20:04)
[2019-08-01] MEDS: POLYETHYLENE GLYCOL 3350 17 GM POWD.PACK PO SCH (08:35)
[2019-08-01] MEDS: INSULIN ASPART (NovoLOG) 100 UNIT/ML VIAL SQ SCH ×4 (08:35→21:45)
[2019-08-01 12:08] LABS: Glucose,Whole Blood 110 mg/dL (75-99)
--- NOTE | 2019-08-01 12:45 | P.CONS ---
History of Present Illness - Reason for Consult Consult date: 08/01/19 sarcoid carcinoma, unknown primary Requesting physician: Puma Engel - Chief Complaint AMS - History of Present Illness Mr. Rodriguez is a pleasant male patient who is admitted for altered mental status and not able to tell me much of his history. Case was discussed with Radiation Oncologist who summarized patient's recent history from [facility] for me. Patient was admitted to [facility] in early June 2019, based on his presentation, pathological right hip fracture, and the location of that fracture, patient was transferred to Orthopedic Oncology at [facility]. Patient had CT CAP 06/29 revealing only bony disease. 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 Patient is supposed to be beginning some palliative radiation. Pt states pain in the right hip, he is uncomfortable, feels SOB, unable to move his lower extremities without help, he states abd pain, does not know his last BM, denied nausea, dysuria. Review of Systems documented pt answers to questions in HPI ROS unobtainable: due to mental status Past Medical History Past Medical History: Coronary Artery Disease (CAD), Cancer, Heart Failure, CVA/TIA, Diabetes Mellitus, Hyperlipidemia, Hypertension, Vascular Disorder Additional Past Medical History / Comment(s): PVD, R BKA, NIDDM type II, occasional neuropathy bilateral hands, CVA with left arm weakness, lower GI bleed with acute blood loss anemia/gastritis/duodenitis. Bone cancer he got diagnosed on 06/28/2019, bone cancer. History of Any Multi-Drug Resistant Organisms: None Reported Past Surgical History: Heart Catheterization With Stent Additional Past Surgical History / Comment(s): right leg below the knee amputation, Robotic hear surgery with artery replaced, bilateral caratid endartectomies, EGD, colonoscopy Additional Past Anesthesia/Blood Transfusion Reaction / Comm: Pt woke up after heart surgery fighting. Date of Last Stent Placement:: [address] [facility] Past Psychological History: No Psychological Hx Reported Additional Psychological History / Comment(s): currently reside at [facility]. Smoking Status: Former smoker Past Alcohol Use History: None Reported Additional Past Alcohol Use History / Comment(s): Pt started smoking in 1962 and quit in 1989 Past Drug Use History: None Reported Additional Drug Use History / Comment(s): Rare marijuana - Past Family History Father Family Medical History: Liver Disease Additional Family Medical History / Comment(s): Father was an alcoholic. He had cirrhosis. Mother Family Medical History: Cancer Additional Family Medical History / Comment(s): Mother from cancer at the age of 60 yrs but pt does not know type of cancer. Medications and Allergies Home Medications Medication Instructions Recorded Confirmed Type Acetaminophen-Codeine 300-30mg 1 tab PO BID PRN 09/14/18 07/30/19 History [Tylenol w/codeine #3] Aspirin 325 mg PO DAILY 09/14/18 07/30/19 History Clopidogrel Bisulfate [Plavix] 75 mg PO DAILY 09/14/18 07/30/19 History Ferrous Sulfate [Feosol] 325 mg PO BID #0 09/18/18 07/30/19 Rx Cholecalciferol [Vitamin D3 (25 1,000 unit PO BID 06/27/19 07/30/19 History Mcg = 1000 Iu)] Metoprolol Tartrate [Lopressor] 25 mg PO BID@0800,2000 06/27/19 07/30/19 History amLODIPine [Norvasc] 10 mg PO DAILY 06/27/19 07/30/19 History metFORMIN HCL [Glucophage] 500 mg PO BID@0800,1600 06/27/19 07/30/19 History Benzocaine/Menthol Lozeng [Cepacol 1 lozenge MUCOUS MEM Q4HR PRN 07/30/19 07/30/19 History lozenge] Bisacodyl 10 mg RECTAL DAILY PRN 07/30/19 07/30/19 History Cefuroxime Axetil [Ceftin] 500 mg PO BID@0800,1600 07/30/19 07/30/19 History Docusate Sodium [Dok] 100 mg PO DAILY 07/30/19 07/30/19 History Docusate [Colace] 100 mg PO DAILY PRN 07/30/19 07/30/19 History Enoxaparin [Lovenox] 40 mg SQ DAILY@0800 07/30/19 07/30/19 History Gabapentin [Neurontin] 100 mg PO TID@0500,1300,2100 07/30/19 07/30/19 History Glycerin Adult Suppository 1 supp RECTAL DAILY PRN 07/30/19 07/30/19 History Insulin Aspart See Protocol SQ ACHS 07/30/19 07/30/19 History Mirtazapine 7.5 mg PO HS 07/30/19 07/30/19 History Polyethylene Glycol 3350 [Miralax] 17 gm PO DAILY 07/30/19 07/30/19 History Sennosides [Senna] 8.6 mg PO HS 07/30/19 07/30/19 History Sodium Chloride [Saline Nasal 1 spray EA NOSTRIL Q2H PRN 07/30/19 07/30/19 History [place]] oxyCODONE HCL [oxyCODONE HCL (IR)] 10 mg PO Q4H PRN 07/30/19 07/30/19 History Allergies Allergy/AdvReac Type Severity Reaction Status Date / Time Wlhtead-Wyd-Pdx Reductase AdvReac Confusion/muscle Verified 07/30/19 21:12 Inhibitor pain Physical Exam Vitals: Vital Signs Temp Pulse Resp BP Pulse Ox 08/01/19 08:00 18 08/01/19 05:30 97.7 F 84 18 169/80 99 07/31/19 22:25 98.1 F 107 H 18 174/83 100 07/31/19 16:00 16 07/31/19 14:42 98.1 F 96 16 175/84 97 Intake and Output 07/31/19 08/01/19 08/01/19 22:59 06:59 14:59 Other: Voiding Method Diaper Diaper Incontinent Incontinent # Voids 2 3 2 # Bowel Movements 1 1 - Constitutional General appearance: average body habitus, cooperative, mild distress - EENT Eyes: anicteric sclerae, EOMI ENT: hearing grossly normal - Neck Neck: no lymphadenopathy - Respiratory Respiratory: bilateral: CTA - Cardiovascular Rhythm: regular Heart sounds: normal: S1, S2 Abnormal Heart Sounds: no systolic murmur, no diastolic murmur, no rub, no S3 Gallop, no S4 Gallop, no click, no other leg Peripheral Edema: left: None - Gastrointestinal General gastrointestinal: no absent bowel sounds, no decreased bowel sounds, no distended, no hepatomegaly, no hyperactive bowel sounds, normal bowel sounds, no organomegaly, no rigid, no scaphoid, soft, no splenomegaly, tenderness, no umbilical hernia, no ventral hernia Localized gastrointestinal: tender: diffuse (no masses palpated) - Integumentary Integumentary: pale - Neurologic Neurologic: CNII-XII intact - Musculoskeletal Musculoskeletal: generalized weakness - Psychiatric alert, oriented to self Psychiatric: no appropriate affect, no intact judgment & insight Results CBC & Chem 7: 07/30/19 19:26 07/30/19 19:26 Labs: Abnormal Lab Results - Last 24 Hours (Table) 07/30/19 07/31/19 07/31/19 Range/Units 19:26 11:42 17:04 POC Glucose (mg/dL) 155 H 177 H (75-99) mg/dL Iron 17 L (65-175) ug/dL TIBC 225 L (228-460) ug/dL % Saturation 7.56 L (15.00-50.00) 07/31/19 08/01/19 Range/Units 20:35 07:05 POC Glucose (mg/dL) 130 H 147 H (75-99) mg/dL Iron (65-175) ug/dL TIBC (228-460) ug/dL % Saturation (15.00-50.00) Microbiology - Last 24 Hours (Table) 07/30/19 19:37 Blood Culture - Preliminary Blood No Growth after 24 hours Chest x-ray: report reviewed CT Scan - head: report reviewed Assessment and Plan (1) Altered mental status Narrative/Plan: MRI brain neg for mets. Recheck Ca++ level Pancultures pending Current Visit: Yes Status: Acute Priority: High Code(s): R41.82 - ALTERED MENTAL STATUS, UNSPECIFIED SNOMED Code(s): 830461086 (2) Carcinoma Narrative/Plan: Patient diagnosed with poorly differentiated metastatic carcinoma with sarcoid feature from a bone biopsy on July 09, unknown primary. CAT scan showed only bony disease. Patient is going to be having palliative radiation-await Rad Onc review of case, will consult inpatient if needed. I do not know if specimen has been sent off for sequencing for unknown primary. Unfortunately, patient would not be a candidate at this time for systemic therapy due to poor performance status. We will await workup/treatment of his current altered mental status and see if he improves. I discussed case with Radiation Oncologist who reviewed notes regarding patient's recent diagnosis from [facility]. Current Visit: Yes Status: Acute Priority: High Code(s): C80.1 - MALIGNANT (PRIMARY) NEOPLASM, UNSPECIFIED SNOMED Code(s): 619753190 (3) Microcytic hypochromic anemia Narrative/Plan: Pt has been ordered oral iron. Pt baseline has been 7.5-9 range for the last year Transfuse for Hgb<7 Current Visit: Yes Status: Acute Priority: Medium Code(s): D50.9 - IRON DEFICIENCY ANEMIA, UNSPECIFIED SNOMED Code(s): 61361691
[2019-08-01 15:38] LABS: Appearance,Urine Clear (Clear); Bilirubin,Urine Negative (Negative); Blood,Urine Negative (Negative); Color,Urine Yellow; Glucose,Urine (UA) Negative (Negative); Ketones,Urine 2+ (Negative); Leukocyte Esterase,Urine Negative (Negative); Nitrite,Urine Negative (Negative); PH, Urine 6.5 (5.0-8.0); Protein,Urine Trace (Negative); Specific Gravity,Urine 1.017 (1.001-1.035); Urobilinogen,Urine <2.0 mg/dL (<2.0)
[2019-08-01 17:05] LABS: Glucose,Whole Blood 124 mg/dL (75-99)
[2019-08-01] MEDS: MIRTAZAPINE 15 MG TAB PO SCH (20:03)
[2019-08-01 20:08] LABS: Glucose,Whole Blood 151 mg/dL (75-99)
--- NOTE | 2019-08-01 20:23 | PN ---
PROGRESS NOTE CHIEF COMPLAINT: Mental status changes. HISTORY OF PRESENT ILLNESS: This is gentleman seems about the same. He seems fairly awake, alert, but very confused. According to family member, this is not usual for him. He has been on a lot of analgesic medication for recent right BK amputation. It is not clear why this was done. There apparently also is a history that he may have "bone cancer." Nothing can be obtained from the patient regarding these issues. Yesterday, he had a slight temp, but it is normal today. REVIEW OF SYSTEMS: Unobtainable. Past medical history, family history and personal and social histories are similarly incomplete. PHYSICAL EXAMINATION: Blood pressure is 142/68 with a pulse of 95. In general, he appeared to be awake and alert, but confused. He was slightly pale. Head, ears, eyes, nose, mouth, and throat were unchanged. Chest is clear. Cardiac exam demonstrates tachycardia and the abdomen is soft and nontender. Extremities normal except for the right BKA. IMPRESSION: 1. Dementia. 2. Delirium. 3. Mental status changes (new?). 4. History of "bone cancer". PLAN: 1. Continue evaluation with consults with Neurology and Oncology. 2. Monitor his temperature. 3. Follow up his blood sugars which have been slightly elevated. MMODL / IJN: [id number] /
--- NOTE | 2019-08-01 21:22 | P.CNNES ---
History of Present Illness Consult date: 08/01/19 Requesting physician: Puma Engel Reason for Consult: Altered mental status History of Present Illness: Patient is a 69-year-old male admitted to the hospital for worsening confusion over the past 1 month. Patient very confused at this time as per examination below. Not able to provide any history. All information obtained from electronic medical records. Patient apparently was diagnosed with poorly differentiated metastatic carcinoma with sarcoid feature from a bone biopsy on 07/09/2019, unknown primary. Computed tomography scan showed only bone disease. Patient is going for palliative radiation, awaiting radiation oncology review of the case. Patient has suffered from a pathological fracture and underwent operative repair at [facility]. Patient's bone scan from 06/28/2019 showed abnormal uptake response the CT abnormalities involving the right femur and pelvis compatible with malignancy. Patient underwent computed tomography scan of the head, which revealed age-related atrophic and chronic small vessel ischemic changes without acute intracranial process seen at this time. Chest x-ray showed no acute cardiopulmonary disease. EKG shows sinus rhythm with premature atrial compl exes. Minimal voltage criteria for LVH. Inferior infarct age undetermined. Patient's UA is negative. His blood test shows WBC 9.4 hemoglobin 8.7 platelets 354. PT/PTT is normal. Sodium 135 potassium 3.9 renal functions normal. Hemoglobin A1c 6.5 on 07/24/2019. Calcium 10.9 with ionized calcium 5.7/5.3. Liver functions are normal. Vitamin D is 34.8. PTH is normal. Review of Systems Complains of significant bone pain. Denies headache. Past Medical History Past Medical History: Coronary Artery Disease (CAD), Cancer, Heart Failure, CVA/TIA, Diabetes Mellitus, Hyperlipidemia, Hypertension, Vascular Disorder Additional Past Medical History / Comment(s): PVD, R BKA, NIDDM type II, occasional neuropathy bilateral hands, CVA with left arm weakness, lower GI bleed with acute blood loss anemia/gastritis/duodenitis. Bone cancer he got diagnosed on 06/28/2019, bone cancer. History of Any Multi-Drug Resistant Organisms: None Reported Past Surgical History: Heart Catheterization With Stent Additional Past Surgical History / Comment(s): right leg below the knee amputation, Robotic hear surgery with artery replaced, bilateral caratid endartectomies, EGD, colonoscopy Additional Past Anesthesia/Blood Transfusion Reaction / Comment(s): Pt woke up after heart surgery fighting. Date of Last Stent Placement:: 30 years ago at [facility] Past Psychological History: No Psychological Hx Reported Additional Psychological History / Comment(s): currently reside at [facility]. Smoking Status: Former smoker Past Alcohol Use History: None Reported Additional Past Alcohol Use History / Comment(s): Pt started smoking in 1962 and quit in 1989 Past Drug Use History: None Reported Additional Drug Use History / Comment(s): Rare marijuana - Past Family History Father Family Medical History: Liver Disease Additional Family Medical History / Comment(s): Father was an alcoholic. He had cirrhosis. Mother Family Medical History: Cancer Additional Family Medical History / Comment(s): Mother from cancer at the age of 60 yrs but pt does not know type of cancer. Medications and Allergies Home Medications Medication Instructions Recorded Confirmed Type Acetaminophen-Codeine 300-30mg 1 tab PO BID PRN 09/14/18 07/30/19 History [Tylenol w/codeine #3] Aspirin 325 mg PO DAILY 09/14/18 07/30/19 History Clopidogrel Bisulfate [Plavix] 75 mg PO DAILY 09/14/18 07/30/19 History Ferrous Sulfate [Feosol] 325 mg PO BID #0 09/18/18 07/30/19 Rx Cholecalciferol [Vitamin D3 (25 1,000 unit PO BID 06/27/19 07/30/19 History Mcg = 1000 Iu)] Metoprolol Tartrate [Lopressor] 25 mg PO BID@0800,2000 06/27/19 07/30/19 History amLODIPine [Norvasc] 10 mg PO DAILY 06/27/19 07/30/19 History metFORMIN HCL [Glucophage] 500 mg PO BID@0800,1600 06/27/19 07/30/19 History Benzocaine/Menthol Lozeng [Cepacol 1 lozenge MUCOUS MEM Q4HR PRN 07/30/19 07/30/19 History lozenge] Bisacodyl 10 mg RECTAL DAILY PRN 07/30/19 07/30/19 History Cefuroxime Axetil [Ceftin] 500 mg PO BID@0800,1600 07/30/19 07/30/19 History Docusate Sodium [Dok] 100 mg PO DAILY 07/30/19 07/30/19 History Docusate [Colace] 100 mg PO DAILY PRN 07/30/19 07/30/19 History Enoxaparin [Lovenox] 40 mg SQ DAILY@0800 07/30/19 07/30/19 History Gabapentin [Neurontin] 100 mg PO TID@0500,1300,2100 07/30/19 07/30/19 History Glycerin Adult Suppository 1 supp RECTAL DAILY PRN 07/30/19 07/30/19 History Insulin Aspart See Protocol SQ ACHS 07/30/19 07/30/19 History Mirtazapine 7.5 mg PO HS 07/30/19 07/30/19 History Polyethylene Glycol 3350 [Miralax] 17 gm PO DAILY 07/30/19 07/30/19 History Sennosides [Senna] 8.6 mg PO HS 07/30/19 07/30/19 History Sodium Chloride [Saline Nasal 1 spray EA NOSTRIL Q2H PRN 07/30/19 07/30/19 H istory [place]] oxyCODONE HCL [oxyCODONE HCL (IR)] 10 mg PO Q4H PRN 07/30/19 07/30/19 History Allergies Allergy/AdvReac Type Severity Reaction Status Date / Time Ngldgqq-Zyi-Tmt Reductase AdvReac Confusion/muscle Verified 07/30/19 21:12 Inhibitor pain Physical Examination - Vital Signs Vital Signs: Vital Signs Temp Pulse Resp BP Pulse Ox 08/01/19 14:48 20 08/01/19 12:20 98.2 F 87 20 175/81 97 08/01/19 08:00 18 08/01/19 05:30 97.7 F 84 18 169/80 99 07/31/19 22:25 98.1 F 107 H 18 174/83 100 Intake and Output 08/01/19 08/01/19 08/01/19 06:59 14:59 22:59 Other: Voiding Method Diaper Incontinent # Voids 3 1 1 # Bowel Movements 3 0 Patient appears delirious, slightly encephalopathic. Patient has myoclonic twitching of his arms and legs. Patient states that he is in "penitentiary now". He states that he is in a halfway, does not know the exact name, states the president is [place]. He could not tell the current city or the state he is in. He knows his date of . Speech and language functions are normal with no aphasia or dysarthria. Patient would often mumbled. When I asked more questions, patient suddenly became very aggressive, stating that he is in severe pain, and does not want to be examined. He did threaten with the fist. Further detailed examination was aborted. Results - Laboratory Findings CBC and BMP: 07/30/19 19:26 07/30/19 19:26 Abnormal Lab Findings: Abnormal Labs 07/30/19 07/30/19 07/30/19 19:26 19:26 19:26 RBC 3.69 L Hgb 8.7 L Hct 28.9 L MCV 78.3 L MCH 23.5 L MCHC 30.0 L Sodium 135 L Chloride 95 L Carbon Dioxide 31 H BUN 21 H Glucose 132 H POC Glucose (mg/dL) Calcium 10.9 H Iron 17 L TIBC 225 L % Saturation 7.56 L Alkaline Phosphatase 132 H Urine Protein Urine Ketones 07/31/19 07/31/19 07/31/19 07:05 11:42 17:04 RBC Hgb Hct MCV MCH MCHC Sodium Chloride Carbon Dioxide BUN Glucose POC Glucose (mg/dL) 155 H 155 H 177 H Calcium Iron TIBC % Saturation Alkaline Phosphatase Urine Protein Urine Ketones 07/31/19 08/01/19 08/01/19 20:35 07:05 11:55 RBC Hgb Hct MCV MCH MCHC Sodium Chloride Carbon Dioxide BUN Glucose POC Glucose (mg/dL) 130 H 147 H 110 H Calcium Iron TIBC % Saturation Alkaline Phosphatase Urine Protein Urine Ketones 08/01/19 08/01/19 08/01/19 14:30 16:45 19:57 RBC Hgb Hct MCV MCH MCHC Sodium Chloride Carbon Dioxide BUN Glucose POC Glucose (mg/dL) 124 H 151 H Calcium Iron TIBC % Saturation Alkaline Phosphatase Urine Protein Trace H Urine Ketones 2+ H Assessment and Plan Assessment: * Altered mental status, likely related to toxic metabolic encephalopathy. Patient's hypercalcemia, anemia, pain due to metastatic cancer are probably the likely causes. Rule out other causes like medications or cryptogenic infection. No definitive evidence of intracranial process at this time. * Metastatic poorly differentiated cancer, unclear primary. Plan: * We will perform EEG to evaluate for encephalopathy and rule out any epileptiform activity. * Your medical management. * Please call neurology if you have any further concerns.
[2019-08-02] MEDS: SODIUM CHLORIDE 0.9% 1,000 ML IV SCH ×2 (02:33→15:29)
[2019-08-02] MEDS: GABAPENTIN 100 MG CAP PO SCH ×3 (04:51→21:32)
[2019-08-02 07:09] LABS: Glucose,Whole Blood 127 mg/dL (75-99)
[2019-08-02] MEDS: CLOPIDOGREL 75 MG TAB PO SCH (07:33)
[2019-08-02] MEDS: amLODIPine 10 MG TAB PO SCH (07:33)
[2019-08-02] MEDS: FERROUS SULFATE 325 MG TAB PO SCH ×2 (07:33→21:31)
[2019-08-02] MEDS: metFORMIN 500 MG TAB PO SCH ×2 (07:33→21:31)
[2019-08-02] MEDS: INSULIN ASPART (NovoLOG) 100 UNIT/ML VIAL SQ SCH ×4 (07:34→21:59)
[2019-08-02] MEDS: METOPROLOL TARTRATE 25 MG TAB PO SCH ×2 (07:34→21:31)
[2019-08-02] MEDS: POLYETHYLENE GLYCOL 3350 17 GM POWD.PACK PO SCH (07:34)
[2019-08-02 10:05] LABS: ALT 32 U/L (4-49); AST 53 U/L (17-59); African American GFR (CKD) >90 (>60 ml/min/1.73 sqM); Albumin 3.4 g/dL (3.5-5.0); Alkaline Phosphatase 103 U/L (38-126); Anion Gap 11 mmol/L; Blood Urea Nitrogen 11 mg/dL (9-20); Calcium 10.1 mg/dL (8.4-10.2); Carbon Dioxide 24 mmol/L (22-30); Chloride 101 mmol/L (98-107); Glucose 172 mg/dL (74-99); Non-African American GFR(CKD) >90 (>60 ml/min/1.73 sqM); Potassium 3.8 mmol/L (3.5-5.1); Sodium 136 mmol/L (137-145); Total Bilirubin 0.6 mg/dL (0.2-1.3); Total Protein 6.3 g/dL (6.3-8.2)
[2019-08-02] MEDS: ACETAMINOPHEN TAB 325 MG TAB PO PRN (10:08)
[2019-08-02] MEDS ORDERED: traMADol 50 MG TAB PO PRN (10:45)
[2019-08-02 12:11] LABS: Glucose,Whole Blood 165 mg/dL (75-99)
[2019-08-02] MEDS: IBUPROFEN 800 MG TAB PO SCH ×3 (12:53→21:32)
[2019-08-02] MEDS: HYDROcodone/APAP 5-325MG 1 EACH TAB PO PRN (12:54)
--- NOTE | 2019-08-02 16:24 | EEG ---
ELECTROENCEPHALOGRAM REPORT DATE OF SERVICE: 08/02/2019. PREAMBLE: This is a 69-year-old male who has presented with altered mental status. This EEG is performed to evaluate for encephalopathy, rule out any epileptiform activity. EEG FINDINGS: A routine 21-channel awake digital EEG recording was accomplished utilizing the 10/20 international system with bipolar and referential montages. The background activity consists of well-developed, moderately well regulated, predominantly 7 Hz theta seen in bihemispheric region. Background is posterior-dominant and seems to be reactive to eye opening and closing. A photic driving response was not seen. Hyperventilation was not done. Different stages of sleep were not seen. No focal or generalized epileptiform activity was seen. EKG channel leads revealed no arrhythmia. IMPRESSION: This is an abnormal EEG due to background slowing of mild degree. This is suggestive of generalized cerebral dysfunction, as can be seen with toxic metabolic encephalopathies or due to diffuse structural brain abnormality. No epileptiform activity was seen. MMODL / IJN: [id number] /
[2019-08-02 17:19] LABS: Glucose,Whole Blood 193 mg/dL (75-99)
--- NOTE | 2019-08-02 17:33 | PN ---
PROGRESS NOTE CHIEF COMPLAINT: Mental status changes. HISTORY OF PRESENT ILLNESS: This gentleman is doing much better. He is much more awake and alert. His , who is with him, concurs that he was on way too much sedation and analgesia in the penitentiary. REVIEW OF SYSTEMS: He is not having any other difficulty, although he continues to complain of pain, mostly in the right femur where he reportedly has a neoplasm where the bone was stabilized with a brent. Oncology is trying to receive the reports on treatment of this entity and exactly what it is. PHYSICAL EXAMINATION: He is slightly pale. He is fully awake and alert now. Neurologically he is intact. Chest is clear. Cardiac exam is normal. Abdomen is soft, nontender. IMPRESSION: 1. Mental status changes due to analgesia overdose. 2. History of "bone cancer" in the right femur stabilized with an intramedullary brent. 3. Right below-knee amputation for peripheral vascular occlusive disease. PLAN: No change in program. He continues to complain of a lot of discomfort in the right thigh. We will try increasing his analgesic program but avoiding overdose while waiting for Oncology to complete evaluation on the possible malignancy. MMODL / IJN: [id number] /
[2019-08-02 20:14] LABS: Glucose,Whole Blood 97 mg/dL (75-99)
[2019-08-02] MEDS: MIRTAZAPINE 15 MG TAB PO SCH (21:33)
[2019-08-03] MEDS: HYDROcodone/APAP 5-325MG 1 EACH TAB PO PRN ×3 (00:13→20:24)
[2019-08-03] MEDS: SODIUM CHLORIDE 0.9% 1,000 ML IV SCH ×2 (04:27→17:37)
[2019-08-03] MEDS: GABAPENTIN 100 MG CAP PO SCH ×3 (05:13→21:16)
[2019-08-03 07:07] LABS: Glucose,Whole Blood 129 mg/dL (75-99)
[2019-08-03] MEDS: INSULIN ASPART (NovoLOG) 100 UNIT/ML VIAL SQ SCH ×4 (07:47→21:17)
[2019-08-03] MEDS: IBUPROFEN 800 MG TAB PO SCH ×4 (08:39→22:52)
[2019-08-03] MEDS: FERROUS SULFATE 325 MG TAB PO SCH ×2 (08:39→21:16)
[2019-08-03] MEDS: metFORMIN 500 MG TAB PO SCH ×2 (08:39→21:17)
[2019-08-03] MEDS: amLODIPine 10 MG TAB PO SCH (08:39)
[2019-08-03] MEDS: CLOPIDOGREL 75 MG TAB PO SCH (08:40)
[2019-08-03] MEDS: POLYETHYLENE GLYCOL 3350 17 GM POWD.PACK PO SCH (08:41)
[2019-08-03] MEDS: METOPROLOL TARTRATE 25 MG TAB PO SCH ×2 (08:41→21:16)
[2019-08-03 11:50] LABS: Glucose,Whole Blood 142 mg/dL (75-99)
--- NOTE | 2019-08-03 12:15 | P.PN ---
Subjective Progress Note Date: 08/03/19 Patient was seen for a follow-up. Patient appears more more comfortable. States the pain is better. Patient better able to cooperate with examination. Objective - Vital Signs Vital signs: Vital Signs Temp 97.6 F 08/03/19 07:26 Pulse 86 08/03/19 07:26 Resp 20 08/03/19 07:26 BP 152/81 08/03/19 07:26 Pulse Ox 99 08/03/19 07:26 Intake & Output 08/02/19 08/03/19 08/03/19 18:59 06:59 18:59 Intake Total 540 Output Total 605 325 Balance -65 -325 Intake: Oral 540 Output: Urine 603 325 Stool 2 Other: Voiding Method Urinal Urinal Urinal Diaper Incontinent # Voids 4 - Exam Patient is awake, slightly somnolent. Patient could not tell what month is it. He states the year is 20. Speech and language functions are normal. Muscle strength normal in the arms. No obvious myoclonus. No asterixis. - Labs CBC & Chem 7: 07/30/19 19:26 08/02/19 09:02 Labs: Abnormal Lab Results - Last 24 Hours (Table) 08/02/19 08/03/19 08/03/19 Range/Units 17:12 06:48 11:40 POC Glucose (mg/dL) 193 H 129 H 142 H (75-99) mg/dL Microbiology - Last 24 Hours (Table) 07/30/19 19:37 Blood Culture - Preliminary Blood No Growth after 72 hours 08/01/19 12:51 Blood Culture - Preliminary Blood No Growth after 24 hours Assessment and Plan Assessment: * Altered mental status, likely related to toxic metabolic encephalopathy. Patient's hypercalcemia, anemia, pain due to metastatic cancer, and the pain medications are probably the likely causes. Rule out other causes like medications or cryptogenic infection. No definitive evidence of intracranial process at this time. * Metastatic poorly differentiated cancer, unclear primary. Plan: * EEG revealed mild background slowing, consistent with encephalopathy. No epileptiform activity was seen. * Patient's calcium is now normal 10.1. * Your medical management. * Neurology will sign off. Please call neurology if you have any further concerns.
--- NOTE | 2019-08-03 12:17 | DS ---
DISCHARGE SUMMARY CHIEF COMPLAINT: Delirium and confusion. HISTORY OF PRESENT ILLNESS AND PHYSICAL EXAMINATION: Details of this man's history and physical can be found in the initial workup. LABORATORY STUDIES: While he was in a hospital he had laboratory studies, details of which can be found in the laboratory section of his chart. COURSE IN HOSPITAL: After admission, he was placed on bedrest, started on intravenous fluids. He was on a large quantity of high-dose narcotics. These were withheld and he became more awake and alert and completely oriented. There was a history of malignancy of the right femur and reports were obtained by Oncology who saw him in consult. He is being worked up for metastatic neoplasm to the right femur, but no primary is known. His right BK amputation was due to vascular disease. He was stabilized and doing well enough to go back to the assisted and he will return to [facility] on his usual medication and diet and activity, as well as rehab. The narcotic treatments will be stopped. He will follow up with Oncology who is planning radiation therapy to the right femur. FINAL DIAGNOSES: 1. Delirium secondary to overdose of analgesics. 2. Metastatic CA to the right femur, primary unknown. 3. PVOD. 4. Right below-knee amputation. 5. Hypertension. 6. Anemia. OPERATIONS: None. CONSULTATION: Oncology. He is improved. MMODL / IJN: [id number] /
--- NOTE | 2019-08-03 13:08 | P.PN ---
Subjective Progress Note Date: 08/03/19 Principal diagnosis: AMS In follow-up today patient is alert, oriented and calm. He does remember having his right hip fracture repaired and that there was a cancer, he does not know of any plan for treatment. Currently no fevers, pain is fairly well controlled. Objective - Vital Signs Vital signs: Vital Signs Temp 97.6 F 08/03/19 07:26 Pulse 86 08/03/19 07:26 Resp 20 08/03/19 07:26 BP 152/81 08/03/19 07:26 Pulse Ox 99 08/03/19 07:26 Intake & Output 08/02/19 08/03/19 08/03/19 18:59 06:59 18:59 Intake Total 540 Output Total 605 325 Balance -65 -325 Intake: Oral 540 Output: Urine 603 325 Stool 2 Other: Voiding Method Urinal Urinal Urinal Diaper Incontinent # Voids 4 - Constitutional General appearance: Present: cooperative, no acute distress, thin - EENT Eyes: Present: anicteric sclerae, EOMI ENT: Present: hearing grossly normal - Respiratory Details: respirations even and unlabored - Cardiovascular Details: skin warm and dry - Integumentary Integumentary: Present: pale - Neurologic Neurologic: Present: CNII-XII intact - Musculoskeletal Musculoskeletal: Present: generalized weakness - Psychiatric Psychiatric: Present: A&O x's 3, appropriate affect, intact judgment & insight - Labs CBC & Chem 7: 07/30/19 19:26 08/02/19 09:02 Labs: Abnormal Lab Results - Last 24 Hours (Table) 08/02/19 08/03/19 08/03/19 Range/Units 17:12 06:48 11:40 POC Glucose (mg/dL) 193 H 129 H 142 H (75-99) mg/dL Microbiology - Last 24 Hours (Table) 07/30/19 19:37 Blood Culture - Preliminary Blood No Growth after 72 hours 08/01/19 12:51 Blood Culture - Preliminary Blood No Growth after 24 hours Assessment and Plan (1) Altered mental status Current Visit: Yes Status: Resolved Priority: High Code(s): R41.82 - ALTERED MENTAL STATUS, UNSPECIFIED SNOMED Code(s): 252938338 (2) Carcinoma Narrative/Plan: Case discussed with Attending. No further workup from Oncology at this time. Patient has a biopsy specimen at [facility], malignancy of unknown primary. Want patient to follow up with Radiation Oncology there as there were plans for palliative radiation. Also, they will know if there is going to be cancer type ID profile testing to see if a tumor type can be narrowed down to see what treatments could be an option in the future. At this time patient is not be a candidate at this time for systemic therapy due to poor performance status. He is going to [facility] and will likely be participating in rehab. Current Visit: Yes Status: Acute Priority: High Code(s): C80.1 - MALIGNANT (PRIMARY) NEOPLASM, UNSPECIFIED SNOMED Code(s): 457473696 (3) Microcytic hypochromic anemia Narrative/Plan: Pt has been ordered oral iron for suspect iron deficiency, no ferritin was evaluate. Pt baseline has been 7.5-9 range for the last year Transfuse for Hgb<7 Current Visit: Yes Status: Acute Priority: Medium Code(s): D50.9 - IRON DEFICIENCY ANEMIA, UNSPECIFIED SNOMED Code(s): 26409724
--- NOTE | 2019-08-03 16:56 | P.GSCN ---
History of Present Illness Consult date: 08/03/19 History of present illness: The patient is a 69-year-old male asked to see for evaluation of his right below-knee amputation stump. He initially was admitted the hospital for altered mental status. In the past many months he been recently diagnosed with a bone cancer and subsequently required a brent placement in his right femur. Approximate 1 year ago, prior to this he had a right below-knee amputation for peripheral arterial disease along with an infection. Per the family at the bedside they were unable to attempt any revascularization due to the significant areas of blockage. He tolerated that surgery well and did heal his below-knee amputation site. Earlier in the day today, he had had his stump pump assembler on, it was removed and it was noted that he had patchy ischemia to his residual limb. We are consult for this. He continues to have pain in his right lower extremity and will worsen at the below-knee stump. He overall is just tired and states he doesn't necessarily know if he wants to go forth with any further interventions or amputations or evaluations even everything is been through recently Past Medical History Past Medical History: Coronary Artery Disease (CAD), Cancer, Heart Failure, CVA/TIA, Diabetes Mellitus, Hyperlipidemia, Hypertension, Vascular Disorder Additional Past Medical History / Comment(s): PVD, R BKA, NIDDM type II, occasional neuropathy bilateral hands, CVA with left arm weakness, lower GI bleed with acute blood loss anemia/gastritis/duodenitis. Bone cancer he got diagnosed on 06/28/2019, bone cancer. History of Any Multi-Drug Resistant Organisms: None Reported Past Surgical History: Heart Catheterization With Stent Additional Past Surgical History / Comment(s): right leg below the knee amputation, Robotic hear surgery with artery replaced, bilateral caratid endartectomies, EGD, colonoscopy Additional Past Anesthesia/Blood Transfusion Reaction / Comm: Pt woke up after heart surgery fighting. Date of Last Stent Placement:: 30 years ago at [facility] Past Psychological History: No Psychological Hx Reported Additional Psychological History / Comment(s): currently reside at [facility]. Smoking Status: Former smoker Past Alcohol Use History: None Reported Additional Past Alcohol Use History / Comment(s): Pt started smoking in 1962 and quit in 1989 Past Drug Use History: None Reported Additional Drug Use History / Comment(s): Rare marijuana - Past Family History Father Family Medical History: Liver Disease Additional Family Medical History / Comment(s): Father was an alcoholic. He had cirrhosis. Mother Family Medical History: Cancer Additional Family Medical History / Comment(s): Mother from cancer at the age of 60 yrs but pt does not know type of cancer. Medications and Allergies Home Medications Medication Instructions Recorded Confirmed Type Aspirin 325 mg PO DAILY 09/14/18 07/30/19 History Clopidogrel Bisulfate [Plavix] 75 mg PO DAILY 09/14/18 07/30/19 History Ferrous Sulfate [Feosol] 325 mg PO BID #0 09/18/18 07/30/19 Rx Cholecalciferol [Vitamin D3 (25 1,000 unit PO BID 06/27/19 07/30/19 History Mcg = 1000 Iu)] Metoprolol Tartrate [Lopressor] 25 mg PO BID@0800,2000 06/27/19 07/30/19 History amLODIPine [Norvasc] 10 mg PO DAILY 06/27/19 07/30/19 History metFORMIN HCL [Glucophage] 500 mg PO BID@0800,1600 06/27/19 07/30/19 History Benzocaine/Menthol Lozeng [Cepacol 1 lozenge MUCOUS MEM Q4HR PRN 07/30/19 07/30/19 History lozenge] Bisacodyl 10 mg RECTAL DAILY PRN 07/30/19 07/30/19 History Docusate Sodium [Dok] 100 mg PO DAILY 07/30/19 07/30/19 History Docusate [Colace] 100 mg PO DAILY PRN 07/30/19 07/30/19 History Enoxaparin [Lovenox] 40 mg SQ DAILY@0800 07/30/19 07/30/19 History Gabapentin [Neurontin] 100 mg PO TID@0500,1300,2100 07/30/19 07/30/19 History Glycerin Adult Suppository 1 supp RECTAL DAILY PRN 07/30/19 07/30/19 History Insulin Aspart See Protocol SQ ACHS 07/30/19 07/30/19 History Mirtazapine 7.5 mg PO HS 07/30/19 07/30/19 History Polyethylene Glycol 3350 [Miralax] 17 gm PO DAILY 07/30/19 07/30/19 History Sennosides [Senna] 8.6 mg PO HS 07/30/19 07/30/19 History Sodium Chloride [Saline Nasal 1 spray EA NOSTRIL Q2H PRN 07/30/19 07/30/19 History [place]] Acetaminophen Tab [Tylenol] 650 mg PO Q6HR PRN #90 tab 08/03/19 Rx Allergies Allergy/AdvReac Type Severity Reaction Status Date / Time Jnwgjxi-Rbu-Abo Reductase AdvReac Confusion/muscle Verified 07/30/19 21:12 Inhibitor pain Surgical - Exam Vital Signs Temp Pulse Resp BP Pulse Ox 98.3 F 87 16 165/77 97 07/30/19 18:23 07/30/19 18:23 07/30/19 18:23 07/30/19 18:23 07/30/19 18:23 Genitals a pleasant cooperative male in no acute distress. HEENT is normocephalic, atraumatic, etc. motion intact. Heart is regular at this time. Lungs are clear bilaterally. Abdomen is soft, nontender and nondistended. He is tolerating a pulses bilaterally on the right he has a palpable femoral pulse, nonpalpable popliteal pulse. Inability to Find popliteal signal. Patchy ischemia below the knee. Cool to touch. Results - Labs 07/30/19 19:26 08/02/19 09:02 Abnormal Lab Results - Last 24 Hours (Table) 08/02/19 08/03/19 08/03/19 Range/Units 17:12 06:48 11:40 POC Glucose (mg/dL) 193 H 129 H 142 H (75-99) mg/dL Microbiology - Last 24 Hours (Table) 08/01/19 12:51 Blood Culture - Preliminary Blood No Growth after 48 hours 07/30/19 19:37 Blood Culture - Preliminary Blood No Growth after 72 hours Assessment and Plan Assessment: #1 ischemic changes to right below-knee residual limb #2 recent admission for altered mental status, improved #3 bone cancer Plan: At this time we'll initiate anticoagulation. A long discussion was had with the patient regarding possible interventions and attempts to find out reasoning behind this new onset of ischemia. In this discussion he states he really does not want to have any further tests performed and that he does not want any further amputations performed if that became necessary. He does not want any sort of revascularization if that were necessary. At this time I will hold off on a computed tomography scan given the fact that he does not wish to have any further therapy from my standpoint. He did seem amenable to anticoagulation in the event that it may assist the blood flow through collateral vessels. We also had a discussion regarding the possibility of palliative care/hospice. This is something he seems interested in and would like to have a discussion with someone from this field regarding ongoing plans and goals of care. If he does change his mind and would like a further amputation or possible interventions please let me know, he will call if he is discharged and changes his mind at that time
[2019-08-03 17:02] LABS: Glucose,Whole Blood 166 mg/dL (75-99)
[2019-08-03 20:23] LABS: Glucose,Whole Blood 149 mg/dL (75-99)
[2019-08-03 21:11] VITALS: RESP 22
[2019-08-03] MEDS: MIRTAZAPINE 15 MG TAB PO SCH (21:17)
[2019-08-03] MEDS: APIXABAN 5 MG TAB PO SCH (21:17)
[2019-08-04 04:49] VITALS: BP 171/77; PULSE 88; TEMP 99.1
[2019-08-04] MEDS: GABAPENTIN 100 MG CAP PO SCH (05:12)
[2019-08-04] MEDS: HYDROcodone/APAP 5-325MG 1 EACH TAB PO PRN (05:44)
[2019-08-04 07:04] LABS: Glucose,Whole Blood 133 mg/dL (75-99)
[2019-08-04] MEDS: POLYETHYLENE GLYCOL 3350 17 GM POWD.PACK PO SCH (07:51)
[2019-08-04] MEDS: INSULIN ASPART (NovoLOG) 100 UNIT/ML VIAL SQ SCH (07:51)
[2019-08-04] MEDS: METOPROLOL TARTRATE 25 MG TAB PO SCH (08:22)
[2019-08-04] MEDS: FERROUS SULFATE 325 MG TAB PO SCH (08:22)
[2019-08-04] MEDS: APIXABAN 5 MG TAB PO SCH (08:22)
[2019-08-04] MEDS: metFORMIN 500 MG TAB PO SCH (08:22)
[2019-08-04] MEDS: CLOPIDOGREL 75 MG TAB PO SCH (08:22)
[2019-08-04] MEDS: SODIUM CHLORIDE 0.9% 1,000 ML IV SCH (08:22)
[2019-08-04] MEDS: amLODIPine 10 MG TAB PO SCH (08:22)
[2019-08-04] MEDS: IBUPROFEN 800 MG TAB PO SCH (08:22)
--- NOTE | 2019-08-05 06:35 | DS ---
DISCHARGE SUMMARY The patient was to have been discharged yesterday, but there was a small area noticed by the nurse on the right stump and there was concern about the tissue necrosis. He was seen by vascular surgery today who thought that there was no problem. He has been released to go back to the nursing homes this afternoon. LASHAUN / NICO: [id number] /
--- NOTE | 2019-08-06 07:05 | P.CONS ---
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 He was recently admitted at [facility] and underwent IM nail placement within the right femur due to pathologic fracture. He was recently at subacute rehabilitation, when he developed altered mental status. The patient's oncologic history began in May when he developed progressive right sided leg pain. Of note, the patient had a qhgsu-xng-ttil amputation of the right leg 1 year prior owing to vascular disease. When his pain became intolerable, the patient was admitted to [facility], and subsequently transferred to [facility] on June 29 when he was found to have pathologic right hip fracture. Initial workup including a CT scan of the chest, abdomen and pelvis revealed a 3 cm consolidation within the right lower lung likely representing airspace disease and less likely malignancy. There are lytic lesions within the right humeral head, right iliac, right initial tuberosity, right pubis and a pathologic fracture within the femur on the right at the level of the lesser trochanter. The patient also had a 1.8 cm left kidney lesion likely representing cyst. He underwent a bone biopsy on June 30 which revealed poorly differentiated carcinoma with sarcomatoid features, this was reviewed at the 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 The patient had an intramedullary nail placed on July 12. He was subsequently discharged to [facility]. While and [facility], the patient and his report that he did not receive much physical therapy and was found to have increased confusion. He was subsequently returned [facility] were a CT scan of the head performed on July 31 showed no evidence of disease. After a few days hospitalized, the patient's mentation seem to clear. His believes he was over medicated at the [facility]. Prior to all these issues, the patient and his report that he previously was able to ambulate with the assistance of a walker. He has now unfortunately been hospitalized for the better part of over a month. Review of Systems Constitutional: Denies chills, Denies fever Eyes: denies blurred vision Ears: deny: decreased hearing Cardiovascular: Denies chest pain Respiratory: Denies cough, Denies dyspnea, Denies hemoptysis Gastrointestinal: Denies abdominal pain, Denies BRBPR Genitourinary: Denies flank pain Musculoskeletal: Reports fractures Integumentary: Denies rash Neurological: Reports confusion, Denies aphasia, Denies ataxia Psychiatric: Reports confusion, Reports difficulty concentrating Past Medical History Past Medical History: Coronary Artery Disease (CAD), Cancer, Heart Failure, CVA/TIA, Diabetes Mellitus, Hyperlipidemia, Hypertension, Vascular Disorder Additional Past Medical History / Comment(s): PVD, R BKA, NIDDM type II, occasional neuropathy bilateral hands, CVA with left arm weakness, lower GI bleed with acute blood loss anemia/gastritis/duodenitis. Bone cancer he got diagnosed on 06/28/2019, bone cancer. History of Any Multi-Drug Resistant Organisms: None Reported Past Surgical History: Heart Catheterization With Stent Additional Past Surgical History / Comment(s): right leg below the knee amputation, Robotic hear surgery with artery replaced, bilateral caratid endartectomies, EGD, colonoscopy Additional Past Anesthesia/Blood Transfusion Reaction / Comm: Pt woke up after heart surgery fighting. Date of Last Stent Placement:: 30 years ago at [facility] Past Psychological History: No Psychological Hx Reported Additional Psychological History / Comment(s): currently reside at [facility]. Smoking Status: Former smoker Past Alcohol Use History: None Reported Additional Past Alcohol Use History / Comment(s): Pt started smoking in 1962 and quit in 1989 Past Drug Use History: None Reported Additional Drug Use History / Comment(s): Rare marijuana - Past Family History Father Family Medical History: Liver Disease Additional Family Medical History / Comment(s): Father was an alcoholic. He had cirrhosis. Mother Family Medical History: Cancer Additional Family Medical History / Comment(s): Mother from cancer at the age of 60 yrs but pt does not know type of cancer. Medications and Allergies Home Medications Medication Instructions Recorded Confirmed Type Clopidogrel Bisulfate [Plavix] 75 mg PO DAILY 09/14/18 07/30/19 History Ferrous Sulfate [Feosol] 325 mg PO BID #0 09/18/18 07/30/19 Rx Cholecalciferol [Vitamin D3 (25 1,000 unit PO BID 06/27/19 07/30/19 History Mcg = 1000 Iu)] Metoprolol Tartrate [Lopressor] 25 mg PO BID@0800,2000 06/27/19 07/30/19 History amLODIPine [Norvasc] 10 mg PO DAILY 06/27/19 07/30/19 History metFORMIN HCL [Glucophage] 500 mg PO BID@0800,1600 06/27/19 07/30/19 History Benzocaine/Menthol Lozeng [Cepacol 1 lozenge MUCOUS MEM Q4HR PRN 07/30/19 07/30/19 History lozenge] Bisacodyl 10 mg RECTAL DAILY PRN 07/30/19 07/30/19 History Docusate Sodium [Dok] 100 mg PO DAILY 07/30/19 07/30/19 History Docusate [Colace] 100 mg PO DAILY PRN 07/30/19 07/30/19 History Gabapentin [Neurontin] 100 mg PO TID@0500,1300,2100 07/30/19 07/30/19 History Glycerin Adult Suppository 1 supp RECTAL DAILY PRN 07/30/19 07/30/19 History Insulin Aspart See Protocol SQ ACHS 07/30/19 07/30/19 History Mirtazapine 7.5 mg PO HS 07/30/19 07/30/19 History Polyethylene Glycol 3350 [Miralax] 17 gm PO DAILY 07/30/19 07/30/19 History Sennosides [Senna] 8.6 mg PO HS 07/30/19 07/30/19 History Sodium Chloride [Saline Nasal 1 spray EA NOSTRIL Q2H PRN 07/30/19 07/30/19 History [place]] Acetaminophen Tab [Tylenol] 650 mg PO Q6HR PRN #90 tab 08/03/19 Rx Apixaban [Eliquis] 5 mg PO BID 30 Days #60 tab 08/04/19 Rx HYDROcodone/APAP 5-325MG [[place] 1 tab PO Q6HR PRN 3 Days #12 tab 08/04/19 Rx 5-325] Allergies Allergy/AdvReac Type Severity Reaction Status Date / Time Nznqugj-Aea-Awc Reductase AdvReac Confusion/muscle Verified 07/30/19 21:12 Inhibitor pain Physical Exam - Constitutional General appearance: no acute distress, thin - EENT Eyes: EOMI, PERRLA ENT: NA/AT - Neck Neck: no lymphadenopathy - Respiratory Respiratory: bilateral: CTA - Cardiovascular Rhythm: regular - Gastrointestinal General gastrointestinal: no distended, no tenderness - Integumentary Integumentary: no calor - Neurologic Neurologic: CNII-XII intact - Musculoskeletal Musculoskeletal: generalized weakness - Psychiatric Psychiatric: appropriate affect Results CBC & Chem 7: 07/30/19 19:26 08/02/19 09:02 Labs: Microbiology - Last 24 Hours (Table) 07/30/19 19:37 Blood Culture - Final Blood No Growth after 144 hours 08/01/19 12:51 Blood Culture - Preliminary Blood No Growth after [address] scan - abdomen: report reviewed, image reviewed CT scan - chest: report reviewed, image reviewed CT Scan - head: report reviewed, image reviewed CT scan - pelvis: report reviewed, image reviewed Assessment and Plan Plan: The patient is a 69-year-old male with a history of 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 He was recently admitted at [facility] and underwent IM nail placement within the right femur due to pathologic fracture. He was recently at subacute rehabilitation, when he developed altered mental status. 1. Altered mental status: Seems improved; primary team has adjusted down pain medication regimen. 2. Metastatic neoplasm of unknown primary: As detailed previously, the patient was initially recommended to undergo an outpatient PET scan to try to further determine the origin site of his cancer. Unfortunately, he did not do well at his recent [facility] stay, and has been hospitalized again. I explained to the patient and his that typically we would recommend a course of palliative radiotherapy to the right hip considering his recent IM nail placement. I explained however that the patient seems to have a poor performance status at this time. It is uncertain if he will tolerate any systemic therapy. The patient is being discharged to subacute rehabilitation this weekend. If the patient shows some improvement in his functional status, we will consider possible palliative radiotherapy at that time. However, if the patient is unwilling or unable to undergo any systemic treatment, a hospice/palliative care approach would likely be preferred. Time with Patient: Greater than 30
== END 2019-08-04 10:26 | DRG 917 ==
LOC: EC 18:06 → 4SSUR 20:27 → 6NMEDSUR 23:40 → OBSVTOIN 07-31 11:49
PROVIDERS: ADMIT Family Medicine; ATTEND Family Medicine
DX: T39.8X1A Poisoning by other nonopioid analgesics and antipyretics, not elsewhere classified, accidental (unintentional), initial encounter (principal); G92 Toxic encephalopathy; C79.51 Secondary malignant neoplasm of bone; F05 Delirium due to known physiological condition; E78.5 Hyperlipidemia, unspecified; G89.3 Neoplasm related pain (acute) (chronic); I25.10 Atherosclerotic heart disease of native coronary artery without angina pectoris; I50.9 Heart failure, unspecified; I11.0 Hypertensive heart disease with heart failure; T87.89 Other complications of amputation stump; D50.9 Iron deficiency anemia, unspecified; F03.90 Unspecified dementia, unspecified severity, without behavioral disturbance, psychotic disturbance, mood disturbance, and anxiety; E11.51 Type 2 diabetes mellitus with diabetic peripheral angiopathy without gangrene; E83.52 Hypercalcemia; Z89.511 Acquired absence of right leg below knee; Z85.830 Personal history of malignant neoplasm of bone; Z81.1 Family history of alcohol abuse and dependence; Z86.73 Personal history of transient ischemic attack (TIA), and cerebral infarction without residual deficits; Z87.891 Personal history of nicotine dependence; Z80.9 Family history of malignant neoplasm, unspecified; Z79.84 Long term (current) use of oral hypoglycemic drugs; Z79.899 Other long term (current) drug therapy; Z79.82 Long term (current) use of aspirin; Z79.02 Long term (current) use of antithrombotics/antiplatelets; Z79.01 Long term (current) use of anticoagulants
CPT/HCPCS: 36415; 70450; 71046; 80053; 81003; 83540; 83550; 83605; 85025; 85610; 85730; 87040; 93005; 95816; 96361; 96374; 96375; 96376; 99285